=== PATIENT | male | born 1965 | race Caucasian/White ===

== ENCOUNTER 2017-01-19 21:55 | Inpatient (IN) | payer MEDICARE ==
--- NOTE | 2017-01-19 22:32 | ED ---
General Adult HPI - General Source: patient, police, RN notes reviewed Mode of arrival: ambulatory Limitations: no limitations <Eben Cervantes - Last Filed: 01/19/17 23:08> <Robinson Weinstein - Last Filed: 03/21/17 07:28> - General Chief complaint: Psychiatric Symptoms Stated complaint: Mental health Time Seen by Provider: 01/19/17 22:00 - History of Present Illness Initial comments: This is a 51-year-old male who presents to the emergency department stating that people are telling him he is not acting right so he decided come to the emergency department to be evaluated. Patient states he has a past medical history significant for depression with psychotic. Patient states he believes the FBI is been after him for the last 15 years and they are talking to him through his TV. Patient states he believes the FBI's telling him to kill himself in the TV because they would rather have him because they believe that he has a serial killer. He states that they think he wanders around the neighborhood looking for people to kill. Patient states he has never kill anybody or harmed anybody and he does not want to harm anybody. Patient denies any suicidal ideations or suicidal plans. Patient states he has had no physical complaints lately. Patient denies any injury or trauma patient denies any headache patient denies numbness weakness. Patient denies any recent fever chills or cough. Patient denies any chest pain or abdominal pain. Patient denies any shortness of breath. Patient states his ex- sounds noted she thought he was acting little different and so that is another reason he came to the emergency department. (Eben Cervantes) - Related Data Home Medications Medication Instructions Recorded Confirmed ALPRAZolam [Xanax] 1 mg PO BID 08/15/16 01/19/17 DULoxetine HCL [Cymbalta] 120 mg PO DAILY 08/15/16 01/19/17 Acetaminophen [Tylenol] 650 mg PO Q4H PRN 01/19/17 01/20/17 Bcieaza-Fpws-Ltci [id number] 1 tab PO Q4HR PRN 01/19/17 01/20/17 [Excedrin] Benztropine Mesylate 0.5 mg PO BID 01/19/17 01/20/17 Propranolol [Inderal] 40 mg PO TID 01/19/17 01/20/17 Testosterone Cypionate 200 mg IM Q14D 01/19/17 01/20/17 [Depo-Testosterone] buPROPion XL [Wellbutrin XL] 450 mg PO DAILY 01/19/17 01/20/17 Previous Rx's Medication Instructions Recorded ARIPiprazole [Abilify] 30 mg PO DAILY #30 tab 01/29/17 Pantoprazole [Protonix] 40 mg PO SACHA #30 tablet. 01/29/17 Allergies Allergy/AdvReac Type Severity Reaction Status Date / Time No Known Allergies Allergy Verified 01/20/17 06:12 Review of Systems ROS Other: All systems not noted in ROS Statement are negative. <Eben Cervantes - Last Filed: 01/19/17 23:08> ROS Other: All systems not noted in ROS Statement are negative. <Robinson Weinstein - Last Filed: 03/21/17 07:28> ROS Statement: Those systems with pertinent positive or pertinent negative responses have been documented in the HPI. Past Medical History Past Medical History: Asthma History of Any Multi-Drug Resistant Organisms: None Reported Past Surgical History: Tonsillectomy Past Anesthesia/Blood Transfusion Reactions: No Reported Reaction Past Psychological History: Depression, Schizophrenia Smoking Status: Former smoker Past Alcohol Use History: None Reported Past Drug Use History: None Reported <Eben Cervantes - Last Filed: 01/19/17 23:08> General Exam Limitations: no limitations <Eben Cervantes - Last Filed: 01/19/17 23:08> <Robinson Weinstein - Last Filed: 03/21/17 07:28> - General Exam Comments Initial Comments: GENERAL: Patient is well-developed and well-nourished. Patient is nontoxic and well- hydrated and is mildly anxious.. ENT: Neck is soft and supple. No significant lymphadenopathy is noted. Oropharynx is clear. Moist mucous membranes. Neck has full range of motion without eliciting any pain. . EYES: The sclera were anicteric and conjunctiva were pink and moist. Extraocular movements were intact and pupils were equal round and reactive to light. Eyelids were unremarkable. PULMONARY: Unlabored respirations. Good breath sounds bilaterally. No audible rales rhonchi or wheezing was noted. CARDIOVASCULAR: There is a regular rate and rhythm without any murmurs gallops or rubs. ABDOMEN: Soft and nontender with normal bowel sounds. No palpable organomegaly was noted. SKIN: Skin is clear with no lesions or rashes and otherwise unremarkable. NEUROLOGIC: Patient is alert and oriented x3. Cranial nerves II through XII are grossly intact. Motor and sensory are also intact. Normal speech, volume and content. Symmetrical smile. MUSCULOSKELETAL: Normal extremities with adequate strength and full range of motion. No lower extremity swelling or edema. No calf tenderness. LYMPHATICS: No significant lymphadenopathy is noted PSYCHIATRIC: Patient is delusional he believes the FBI is after he believes they're talking to him via satellite through his TV set. He states he believes. He wants to kill himself. He also believes the FBI thinks he is a serial killer. (Eben Cervantes) Medical Decision Making <Eben Cervantes - Last Filed: 01/19/17 23:08> - Lab Data Result diagrams: 01/21/17 07:52 01/21/17 07:52 <Robinson Weinstein - Last Filed: 03/21/17 07:28> - Medical Decision Making Dr. Davis will be taking over the care of this patient at 11 PM (Eben Cervantes ) Disposition <Eben Cervantes - Last Filed: 01/19/17 23:08> <Robinson Weinstein - Last Filed: 03/21/17 07:28> Clinical Impression: Major depressive disorder, recurrent, severe with psychotic symptoms Disposition: TRANSFER TO PSYCH HOSP/UNIT Condition: Stable
[2017-01-20] MEDS ORDERED: MAGNESIUM HYDROXIDE 2,400 MG/10 ML CUP PO PRN (01:41)
[2017-01-20] MEDS ORDERED: ZIPRASIDONE 20 MG VIAL IM PRN (01:41)
[2017-01-20 06:31] VITALS: BMI 37.3
[2017-01-20] MEDS: NICOTINE 14MG/24HR PATCH TRANSDERM SCH (08:59)
[2017-01-20] MEDS: LORazepam 1 MG TAB PO PRN ×2 (09:00→17:03)
[2017-01-20] MEDS: ACETAMINOPHEN TAB 325 MG TAB PO PRN ×3 (09:01→21:27)
[2017-01-20] MEDS ORDERED: WATER FOR INJECTION, STERILE 10 ML IV ONE (11:48)
--- NOTE | 2017-01-20 18:24 | CONS ---
DATE OF CONSULTATION: REASON FOR CONSULTATION: Medical history and physical. HISTORY OF PRESENT ILLNESS: This is a 51-year-old gentleman with history of schizophrenia, ADHD, depression was brought into the hospital by the police as patient was noted to have some auditory hallucinations. Patient states that he would rather not get into what his voices were telling him. There is some concern for suicidal ideation. The patient apparently has a long history of this as well. The patient denies having any headaches, blurry vision, nausea, vomiting, diarrhea, chest pain, difficulty in breathing. Patient's only complaint is tenderness in his left molar region. No drainage is reported. Past medical history includes schizophrenia, depression, ADHD, asthma. Past surgical history includes tonsillectomy. SOCIAL HISTORY: Former smoker. Denies alcohol or illicit drug use. Today medications were reviewed for the ( ) history and physical examination. ALLERGIES: No known drug allergies. SOCIAL HISTORY: As described above. FAMILY HISTORY: Not pertinent in current admission. PHYSICAL EXAM: Temperature 96.4, heart rate 83, respiratory rate 18, blood pressure 125/77, saturating 95% on room air. GENERALLY: Patient appears to be alert, oriented x3. HEENT: The pupils are equal and reactive to light and accommodation. Oral cavity poor dentition, very tender to palpation around left mandibular region. HEART: S1, S2 present. No murmur appreciated. LUNGS: Good air entry. No wheezing or rhonchi noted. ABDOMINAL EXAM: Soft, nontender, no organomegaly appreciated. GENITOURINARY: No Smith in place. EXTREMITIES: Pulses can be palpated distally. Denies any tenderness on gross palpation. SKIN: On a gross skin exam does not appear to have any purpura or any skin rashes that were noted. PSYCHIATRIC: Patient does not make eye contact. States he continues to hear voices. NEURO EXAM: No focal motor or sensory deficit noted. Cranial nerves 2 through 12 grossly intact. No dysdiadochokinesia appreciated. ASSESSMENT AND PLAN: 1. Schizophrenia with auditory hallucination. 2. History of tobacco use. 3. Periodontal disease. 4. Attention deficit hyperactivity disorder. 5. Depression. 6. Essential tremor. 7. Chronic headaches. PLAN: Patient examination was within normal limits except for some concern for periodontal disease. Will empirically place the patient on amoxicillin 500 mg p.o. b.i.d. for a total of 7 days. Patient can thereafter follow up with a dentist on discharge from the psychiatric unit. No further work up is recommended. Treatment per you. Thank you for the consultation.
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
[2017-01-20] MEDS: MAG HYDROX/AL HYDROX/SIMETH 30 ML CUP PO PRN (21:27)
[2017-01-20] MEDS: AMOXICILLIN 500 MG CAP PO SCH (21:27)
[2017-01-20] MEDS: ALPRAZolam 0.5 MG TAB PO SCH (21:27)
[2017-01-20] MEDS: BENZTROPINE MESYLATE 0.5 MG TAB PO SCH (23:53)
[2017-01-20] MEDS: PROPRANOLOL 40 MG TAB PO SCH (23:53)
[2017-01-21 08:35] LABS: Basophils # (A) 0.1 k/uL (0-0.2); Basophils % (A) 1 %; CH 30.2; CHCM 32.3; Eosinophils # (A) 0.6 k/uL (0-0.7); Eosinophils % (A) 8 %; HDW 2.41; HGB 15.4 gm/dL (13.0-17.5); Luc # (Auto) 0.26; Luc % (Auto) 3; Lymphocytes # (A) 1.4 k/uL (1.0-4.8); Lymphocytes % (A) 19 %; MCH 29.6 pg (25.0-35.0); MCHC 31.5 g/dL (31.0-37.0); MCV 93.8 fL (80.0-100.0); Mean Platelet Volume 6.7; Monocytes # (A) 0.6 k/uL (0-1.0); Monocytes % (A) 7 %; Neutrophils # (A) 4.7 k/uL (1.3-7.7); Neutrophils % (A) 61 %; RBC 5.22 m/uL (4.30-5.90); RDW 13.5 % (11.5-15.5); WBC 7.7 k/uL (3.8-10.6)
[2017-01-21 08:55] LABS: ALT 59 U/L (21-72); AST 73 U/L (17-59); Alkaline Phosphatase 49 U/L (38-126); Anion Gap 12 mmol/L; Blood Urea Nitrogen 13 mg/dL (9-20); Calcium 9.4 mg/dL (8.4-10.2); Carbon Dioxide 27 mmol/L (22-30); Chloride 102 mmol/L (98-107); Glucose 99 mg/dL (74-99); Non-African American GFR(MDRD) >60 (>60 ml/min/1.73 sqM); Potassium 4.5 mmol/L (3.5-5.1); Sodium 141 mmol/L (137-145); Total Bilirubin 0.8 mg/dL (0.2-1.3); Total Protein 7.4 g/dL (6.3-8.2)
[2017-01-21] MEDS: PROPRANOLOL 40 MG TAB PO SCH ×3 (09:36→20:04)
[2017-01-21] MEDS: buPROPion XL 150 MG TAB.ER.24H PO SCH (09:37)
[2017-01-21] MEDS: ALPRAZolam 0.5 MG TAB PO SCH ×2 (09:38→20:01)
[2017-01-21] MEDS: DULoxetine HCL 60 MG CAPSULE.DR PO SCH (09:38)
[2017-01-21] MEDS: AMOXICILLIN 500 MG CAP PO SCH ×2 (09:38→19:53)
[2017-01-21] MEDS: ACETAMINOPHEN TAB 325 MG TAB PO PRN ×3 (09:39→19:56)
[2017-01-21] MEDS: BENZTROPINE MESYLATE 0.5 MG TAB PO SCH ×2 (09:39→19:59)
[2017-01-21] MEDS: NICOTINE 14MG/24HR PATCH TRANSDERM SCH (09:40)
--- NOTE | 2017-01-21 16:44 | P.PN ---
Progress Note - Text Interval history: Patient is seen in cross coverage today for Dr. Penny. He reports that he feels very tired and has been sleeping most of the day. He does describe feeling more depressed today. He relates that he feels like people on the unit are watching him. He does not really any adverse psychotropic medication side effects. He seems to be tolerating the increase in Abilify well. Mental status exam: He is alert and cooperative with the interview. His speech is fluent, not rapid or pressured. Thought processes are organized. He describes proceeded toward thought content that people on the unit are watching him. He denies any thoughts of harm to self or others. She does not verbalize any current auditory hallucinations. He does not show any agitation. Plan: Patient will be maintained on current psychotropic medication regimen. We 'll monitor for psychosis symptoms as well as his mood. He relates that he is typically on Prilosec, ordered Protonix as substitution. Dr. Penny or colleague will initiate care this patient starting tomorrow.
[2017-01-21] MEDS: MAG HYDROX/AL HYDROX/SIMETH 30 ML CUP PO PRN (19:57)
[2017-01-22] MEDS: ALPRAZolam 0.5 MG TAB PO SCH ×2 (08:54→20:12)
[2017-01-22] MEDS: AMOXICILLIN 500 MG CAP PO SCH ×2 (08:54→20:12)
[2017-01-22] MEDS: PANTOPRAZOLE 40 MG TABLET PO SCH (08:54)
[2017-01-22] MEDS: BENZTROPINE MESYLATE 0.5 MG TAB PO SCH ×2 (08:56→20:12)
[2017-01-22] MEDS: ACETAMINOPHEN TAB 325 MG TAB PO PRN ×3 (08:56→20:11)
[2017-01-22] MEDS: buPROPion XL 150 MG TAB.ER.24H PO SCH (08:56)
[2017-01-22] MEDS: PROPRANOLOL 40 MG TAB PO SCH ×3 (08:56→20:12)
[2017-01-22] MEDS: DULoxetine HCL 60 MG CAPSULE.DR PO SCH (08:58)
[2017-01-22] MEDS: ARIPiprazole 15 MG TAB PO SCH (10:56)
[2017-01-22] MEDS: ARIPiprazole 10 MG TAB PO SCH (10:57)
--- NOTE | 2017-01-22 20:35 | PN ---
DATE OF SERVICE: 01/22/2017 CHIEF COMPLAINT: Patient was admitted due to increasing problems with paranoia, believing there are conspiracies against him, that the FBI is monitoring him and talking to him through satellites, and that there are other nefarious happenings around him that threaten him. INTERVAL HISTORY: The patient is seen in cross-coverage today for Dr. Penny. He reports that he has been doing fair. Yesterday he reported that he was feeling tired and slept much of the day. He described a little more depression. He believed that people were watching him. Today he says that overall he feels that his medications have helped stabilize his depression. He has been having some problems which he attributes to Abilify. He said Dr. Penny just started Abilify 3 or 4 weeks ago. He believes the initial dose was 20 mg. He had some tremors with that. Dr. Penny then started Cogentin and had a plan to reduce Abilify to 15 mg. The patient says he never picked up the 15 mg tablets because he ended up coming to the hospital. It is noted on admission that he has been increased to 25 mg on Abilify. His other psychotropic medications were continued the same. He says that prior to coming into the hospital he has been taking his medications consistently; in fact, he describes his medications as "lifesavers." He does not identify precipitants to the difficulties that brought him to the hospital. He says that he felt he got initial response to Abilify and then in the last week or two things seemed to slip for him. He last saw Dr. Penny about 2 weeks ago. Today he says he continues to feel tired. He naps some in the day. He has not attended any groups today. He tends to stay in his room. He says he sleeps some. He has a good appetite. He is quite insistent that his beliefs about the FBI and many other similar things are reality, though he says it is unfortunate no one will believe him. On the other hand, when I asked him questions about thought disorder in other ways, he was able to say that he can acknowledge some of his thoughts are not in touch with reality. He seemed to go back and forth between the two ideas. He has not had change in his general health. He tolerates his psychotropic medications. MENTAL STATUS: Patient was dressed in a hospital gown. He had good eye contact. Psychomotor activity was slow. Speech was monotone. He answered questions with brief responses. His thoughts were clear. He did not say a lot. He was not spontaneous or interactive. His affect was flat, his mood quiet. He did smile a little. He was calm. He had an overall pleasant manner. He continued to exhibit paranoid thinking. He seemed somewhat distressed. ASSESSMENT: I will continue the current diagnosis and treatment plan. I will continue psychotropic medications the same. He has had some apparent EPS relating to Abilify. He is on maximum doses of his 2 antidepressants, namely Cymbalta and Wellbutrin. There is the possibility of titrating up on his Abilify, or there may need to be consideration for changing to an alternative antipsychotic. We will continue to focus on stabilization and discharge planning. SPENSER
[2017-01-23] MEDS: DULoxetine HCL 60 MG CAPSULE.DR PO SCH (08:26)
[2017-01-23] MEDS: ARIPiprazole 10 MG TAB PO SCH (08:26)
[2017-01-23] MEDS: PANTOPRAZOLE 40 MG TABLET PO SCH (08:26)
[2017-01-23] MEDS: ALPRAZolam 0.5 MG TAB PO SCH ×2 (08:26→20:49)
[2017-01-23] MEDS: ARIPiprazole 15 MG TAB PO SCH (08:26)
[2017-01-23] MEDS: AMOXICILLIN 500 MG CAP PO SCH ×2 (08:27→20:49)
[2017-01-23] MEDS: BENZTROPINE MESYLATE 0.5 MG TAB PO SCH ×2 (08:28→20:49)
[2017-01-23] MEDS: buPROPion XL 150 MG TAB.ER.24H PO SCH (08:28)
[2017-01-23] MEDS: PROPRANOLOL 40 MG TAB PO SCH ×3 (08:29→20:49)
[2017-01-23] MEDS: ACETAMINOPHEN TAB 325 MG TAB PO PRN ×3 (08:30→20:49)
--- NOTE | 2017-01-23 10:06 | P.PN ---
Progress Note - Text Interval history: The patient is found in his room he follows me to an interview room. He was admitted over the weekend for acute symptoms of psychosis. His ex- had filled out a petition with the court to have him picked up. She had presented to the office Sunday afternoon concern of the patient was overusing Adderall. It appeared that there were 6 tablets missing from the prescription where there should have only been 2 missing. The patient does have a long history of major depressive disorder recurrent with symptoms of psychosis at times. He is well known to my outpatient practice. He was recently seen describing some presumed extrapyramidal symptoms with Abilify the dosage was reduced and we initiated Cogentin. He is on several other psychotropic medications. 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 He states there is no specific person named and he is not sure even when this person could have . He was shocked to learn that there were no warrants for his arrest. He states he's not paranoid and this is all real. He feels they are monitoring him with satellites. Mental status exam: The patient is an overweight male he seated calmly he's mildly agitated. He states he doesn't feel depressed but does feel hopeless at times. He states he's not psychotic these things "are real". He continues to explain paranoid and persecutory thinking. He is reporting no suicidal or homicidal ideation intent or plan. He does not appear hypomanic or manic. He is dressed in 2 hospital gowns. Hygiene grooming impaired. He demonstrates no verbal or physical aggressiveness. There is no evidence of any abnormal involuntary movements. Insight and judgment are limited. Plan: The patient will continue on the Abilify we will titrate to 30 mg daily. He will continue on his other psychotropic medications except Adderall. We will monitor him for safety he is encouraged to participate in the milieu. He requires continued psychiatric hospitalization for symptoms of psychosis. Vital signs reviewed.
[2017-01-23] MEDS ORDERED: ARIPiprazole 5 MG TAB PO ONE (10:15)
[2017-01-24] MEDS: ARIPiprazole 15 MG TAB PO SCH (08:39)
[2017-01-24] MEDS: AMOXICILLIN 500 MG CAP PO SCH ×2 (08:39→20:45)
[2017-01-24] MEDS: DULoxetine HCL 60 MG CAPSULE.DR PO SCH (08:39)
[2017-01-24] MEDS: BENZTROPINE MESYLATE 0.5 MG TAB PO SCH ×2 (08:39→20:45)
[2017-01-24] MEDS: ALPRAZolam 0.5 MG TAB PO SCH ×2 (08:39→20:46)
[2017-01-24] MEDS: buPROPion XL 150 MG TAB.ER.24H PO SCH (08:39)
[2017-01-24] MEDS: PROPRANOLOL 40 MG TAB PO SCH ×3 (08:40→21:03)
[2017-01-24] MEDS: PANTOPRAZOLE 40 MG TABLET PO SCH (08:40)
[2017-01-24] MEDS: ACETAMINOPHEN TAB 325 MG TAB PO PRN ×3 (08:42→18:53)
--- NOTE | 2017-01-24 09:55 | P.PN ---
Progress Note - Text Interval history: The patient is found in his room he follows me to an interview room. He continues to isolate in his room. He reports his goal is to shower today and make it to one half of the groups. He states he wishes he could convince us that the authorities are investigating him they're using satellites to project a voice into his home and they are getting more "aggressive". He states they think he killed somebody but he doesn't know who or when. He states "this is real and you are programed to think it is not real ". Appetite stable. He does report feeling confused at times. Mental status exam: The patient is an overweight male he is dressed in hospital gowns. Hygiene and grooming are impaired. Speech is fluent spontaneous nonpressured. He maintains a blunted affect. Eye contact is staring in nature. He reports he doesn't feel depressed but he feels confused. He continues to describe paranoid and persecutory thoughts. At one point he states he has no suicidal thoughts but at another he states he was using Excedrin excessively hoping to kill his liver. He reports no homicidal ideation. He does seem to struggle with short-term memory as he continues to ask the same questions during the session. Insight and judgment are impaired. He is demonstrating no abnormal involuntary movements. Plan: We will continue him on his current medications we increased the Abilify to 30 mg yesterday. We discuss alternatives to Abilify. He states he refuses to use Seroquel or Zyprexa. He was recently on Risperdal 4 mg a day and we change the medicine because of lack of efficacy although he had been on that for an extended period of time. He is encouraged to attend groups, shower. We will continue to monitor him for safety. He remains in acute safety risk at least unintentionally because of his psychosis.
[2017-01-25] MEDS: buPROPion XL 150 MG TAB.ER.24H PO SCH (08:25)
[2017-01-25] MEDS: AMOXICILLIN 500 MG CAP PO SCH ×2 (08:25→21:23)
[2017-01-25] MEDS: ARIPiprazole 15 MG TAB PO SCH (08:26)
[2017-01-25] MEDS: DULoxetine HCL 60 MG CAPSULE.DR PO SCH (08:26)
[2017-01-25] MEDS: PROPRANOLOL 40 MG TAB PO SCH ×3 (08:26→21:23)
[2017-01-25] MEDS: ALPRAZolam 0.5 MG TAB PO SCH ×2 (08:26→22:05)
[2017-01-25] MEDS: PANTOPRAZOLE 40 MG TABLET PO SCH (08:26)
[2017-01-25] MEDS: BENZTROPINE MESYLATE 0.5 MG TAB PO SCH ×2 (08:29→21:24)
[2017-01-25] MEDS: ACETAMINOPHEN TAB 325 MG TAB PO PRN ×3 (09:12→21:27)
--- NOTE | 2017-01-25 10:04 | P.PN ---
Progress Note - Text Interval history: The patient is found in his room he follows me to an interview room. He reports he was able to sleep last night he did eat breakfast this morning. He feels the Abilify increase is helping. He does not feel depressed. 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 He reports attending some groups but often is uncomfortable around others. He is known to my outpatient practice. We discussed the need for him to engage in some activities outside of his home such as going to the grocery store and cultivating more support other than his ex-. We reviewed the signs of dysfunction he was demonstrating and how to develop some coping skills to deal with those. He discussed some assumptions that he was making regarding his ex- and provided some more objective alternative thoughts. Mental status exam: The patient is an overweight alert male he stressors in his own clothing. Hygiene is adequate. Eye contact is staring in nature. He seems more focused on the conversation today and less confused versus the prior 2 days. He does continue to harbor a delusional thought content which is paranoid in nature. He does not identify his mood as being depressed but is frustrated that he is here and was petitioned. He reports no suicidal or homicidal thoughts. He specifically states he has no thoughts of harming his ex-. He demonstrates no verbal or physical aggressiveness. Affect is mainly blunted there are some brief moments where he demonstrate some range with brief smiling. He demonstrates no abnormal involuntary movements. Insight and judgment limited. Plan: The patient's will continue on his current psychotropic medication. We will continue to monitor his progress in terms of the reduction of acute psychosis. He has been kept off of the Adderall and we discussed we will likely not restart that medication. We discussed Strattera or Intuniv as alternatives. The patient requires continued psychiatric hospitalization for his symptoms of psychosis. He nubia most likely be appropriate for discharge early next week.
[2017-01-26] MEDS: PANTOPRAZOLE 40 MG TABLET PO SCH (08:39)
[2017-01-26] MEDS: ALPRAZolam 0.5 MG TAB PO SCH ×2 (08:39→20:54)
[2017-01-26] MEDS: BENZTROPINE MESYLATE 0.5 MG TAB PO SCH ×2 (08:39→20:54)
[2017-01-26] MEDS: buPROPion XL 150 MG TAB.ER.24H PO SCH (08:39)
[2017-01-26] MEDS: AMOXICILLIN 500 MG CAP PO SCH ×2 (08:39→20:54)
[2017-01-26] MEDS: ARIPiprazole 15 MG TAB PO SCH (08:39)
[2017-01-26] MEDS: PROPRANOLOL 40 MG TAB PO SCH ×3 (08:40→20:54)
[2017-01-26] MEDS: DULoxetine HCL 60 MG CAPSULE.DR PO SCH (08:40)
[2017-01-26] MEDS: ACETAMINOPHEN TAB 325 MG TAB PO PRN ×3 (08:41→20:54)
--- NOTE | 2017-01-26 10:19 | P.PN ---
Progress Note - Text Interval history: The patient is found in his room he follows me to an interview room. He reports that his mood is improving. He continues to have paranoid thinking but finds that he isn't focused on it as much compared to 2 days ago. Sleep is stable appetite stable. He finds he has a lack of energy. He did receive a phone call from his ex- Latanya and found that supportive. We discussed his current medications his questions were answered. Staff reported that he showered and participated in some groups. Mental status exam: The patient is an overweight male he seated calmly eye contact is appropriate speech is fluent spontaneous nonpressured. He is demonstrating more affect of range appropriately. He is reporting no acute suicidal or homicidal ideation. He does continue to have a delusional thought content but he feels the severity of those thoughts is decreasing. He is reporting no auditory or visual hallucinations currently. He demonstrates no verbal or physical aggressiveness he demonstrates no abnormal involuntary movements. Insight and judgment limited. He is oriented to person place and date. Thought process is linear he demonstrates no flight of ideas loose associations or tangential thinking. Plan: The patient's will continue on his current psychotropic medications it appears that he is stabilizing psychosis is still present but improving. If he continues to improve we will consider a discharge Sunday or Sunday. Vital signs reviewed. We will continue to monitor him for safety.
[2017-01-27] MEDS: PANTOPRAZOLE 40 MG TABLET PO SCH (08:36)
[2017-01-27] MEDS: ARIPiprazole 15 MG TAB PO SCH (08:36)
[2017-01-27] MEDS: AMOXICILLIN 500 MG CAP PO SCH ×2 (08:36→20:20)
[2017-01-27] MEDS: ALPRAZolam 0.5 MG TAB PO SCH ×2 (08:36→20:19)
[2017-01-27] MEDS: buPROPion XL 150 MG TAB.ER.24H PO SCH (08:37)
[2017-01-27] MEDS: DULoxetine HCL 60 MG CAPSULE.DR PO SCH (08:37)
[2017-01-27] MEDS: BENZTROPINE MESYLATE 0.5 MG TAB PO SCH ×2 (08:37→20:20)
[2017-01-27] MEDS: PROPRANOLOL 40 MG TAB PO SCH ×3 (08:38→20:20)
[2017-01-27] MEDS: ACETAMINOPHEN TAB 325 MG TAB PO PRN ×2 (08:38→16:22)
[2017-01-28] MEDS: ARIPiprazole 15 MG TAB PO SCH (09:33)
[2017-01-28] MEDS: PANTOPRAZOLE 40 MG TABLET PO SCH (09:33)
[2017-01-28] MEDS: DULoxetine HCL 60 MG CAPSULE.DR PO SCH (09:33)
[2017-01-28] MEDS: PROPRANOLOL 40 MG TAB PO SCH ×3 (09:34→20:56)
[2017-01-28] MEDS: BENZTROPINE MESYLATE 0.5 MG TAB PO SCH ×2 (09:34→20:37)
[2017-01-28] MEDS: buPROPion XL 150 MG TAB.ER.24H PO SCH (09:34)
[2017-01-28] MEDS: ALPRAZolam 0.5 MG TAB PO SCH ×2 (09:35→20:36)
[2017-01-28] MEDS: ACETAMINOPHEN TAB 325 MG TAB PO PRN ×2 (09:38→20:38)
--- NOTE | 2017-01-28 11:17 | PN ---
DATE OF SERVICE: 01/27/2017 CHIEF COMPLAINT: The patient was admitted due to increasing problems with paranoia believing there are conspiracies against him, that [facility] is monitoring him and talking to him through satellites and that there were other affairs happenings around him that threatened him. INTERVAL HISTORY: Patient has been doing fair. He seems to be making progress. Overall his thought process seems to be more connected to reality. He is stating that his mood is improved. He had a positive for a family meeting today. He attended group today and generally was appropriate. He has not always been attending groups. He slept well last night. He has not had change in his general health. He tolerates his psychotropic medications. MENTAL STATUS: Patient gave good eye contact. Psychomotor activity was slowed. Speech was monotone. He answered questions with brief responses. His thoughts were clear. His affect was somewhat limited. His mood was even. He did not appear to be distressed. He did not show outward evidence of paranoia or thought disorder. ASSESSMENT: I will continue the current diagnosis and treatment plan. We will continue to make efforts to engage the patient in individual and group therapeutic activities. I will continue psychotropic medications the same, including Wellbutrin 450 mg a day, Cymbalta 120 mg a day and Xanax 1 mg twice a day, Abilify 30 mg a day and Cogentin 0.5 mg twice a day. We will continue to focus on stabilization and discharge planning. The patient is hopeful to be discharged early in the week.
[2017-01-28 18:22] LABS: Appearance,Urine Clear (Clear); Bilirubin,Urine Negative (Negative); Glucose,Urine (UA) Negative (Negative); Ketones,Urine Negative (Negative); Leukocyte Esterase,Urine Negative (Negative); Nitrite,Urine Negative (Negative); PH, Urine 5.5 (5.0-8.0); Protein,Urine Negative (Negative); Specific Gravity,Urine 1.003 (1.001-1.035); UA Billing (MACRO vs. MICRO) CHEM; Urobilinogen,Urine <2.0 mg/dL (<2.0)
--- NOTE | 2017-01-28 18:22 | PN ---
DATE OF SERVICE: 01/28/2017 CHIEF COMPLAINT: The patient was admitted due to increasing problems with paranoia. INTERVAL HISTORY: Patient has been doing fairly well. He had a quiet evening last night. He slept fairly well today. He has been up and about. He does not attend group much. When he does, he does not joint in though he is more of a passive observer. He seems to be fairly comfortable in the milieu. He says that his mood is improving. He shows a little more emotional response and seems less withdrawn. He is hopeful to be discharged soon. He has not had change in his general health. He tolerates his psychotropic medications. MENTAL STATUS: Patient was in his room. He gave good eye contact. Psychomotor activity was a little slowed. Speech was clear. He answered with brief responses. His affect was a little constricted. He did smile some. He appeared relaxed. His mood was even. He did not appear to be distressed. ASSESSMENT: I will continue the current diagnosis and treatment plan. We will continue psychotropic medications the same. Patient has been making progress. We will coordinate with outpatient resources for discharge planning.
[2017-01-29 06:09] VITALS: BP 105/56; PULSE 66; RESP 18; TEMP 98
--- NOTE | 2017-01-29 08:57 | P.DS ---
Providers Date of admission: 01/20/17 00:19 Expected date of discharge: 01/29/17 Attending physician: David Penny Consults: 01/20/17 01:41 Consult Physician Routine Consulting Provider: Yong Siddiqui Consult Reason/Comments: medical management Do you want consulting provider notified?: Yes, Notify in am Primary care physician: Rufino Haddad Moody - Discharge Diagnosis(es) (1) Major depressive disorder, recurrent, severe with psychotic features Current Visit: Yes Status: Acute Priority: High (2) Generalized anxiety disorder Current Visit: Yes Status: Acute Priority: High (3) ADHD (attention deficit hyperactivity disorder) Current Visit: Yes Status: Acute Priority: Medium Hospital Course: Brief summary of admission note: This patient was admitted to the mental health unit through the emergency room as he was brought in on a pickup order. His ex- had presented to my office the Sunday before his admission stating she was concerned about symptoms of psychosis the patient was experiencing and she felt he was overusing his Adderall. She was advised to petition the court for a pickup order. The patient presented describing concerns of legal authorities monitoring him and speaking to him through satellites regarding a murder he did not commit. 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 The patient is well known to my outpatient practice. He has a long history of severe psychiatric symptoms. For full details please refer to Dr. Webster's psychiatric evaluation dated 01/20/2017. Summary of hospital course: The patient presented to the hospital on a pickup order but he was willing to sign in voluntarily. We reviewed medication options and decided to titrate the Abilify to 30 mg daily to treat symptoms of psychosis. The patient does have a mild undercurrent of psychosis as part of his baseline as he is typically suspicious and we believe this was exacerbated by overuse of Adderall. Over the course of the hospitalization he was cooperative he attended some groups he demonstrated no agitated behavior. He was evaluated by the electronic component processor for routine medical consultation. We discussed that we would no longer continue Adderall but would look for some options utilizing a non-stimulant medication for ADHD in the outpatient setting. The patient did speak with his ex- via phone and she was also involved in a family meeting over this past weekend. Social work notes regarding the meeting were reviewed and it was perceived to have gone well. The patient states he does feel better he is endorsing no suicidal or homicidal thoughts. He reports that he is able to better manage his suspicious thinking. He is willing to continue working with myself and Sarita in the outpatient setting. We discussed further development of coping skills and establishing more independence. We spent a significant amount of time discussing his fast food diet and how he needs to go to a grocery store to prepare some of his own food. Mental status exam: The patient is an overweight male he seated calmly eye contact is appropriate. Speech is fluent spontaneous nonpressured. He reports his mood is "better". Affect is euthymic he is able to demonstrate appropriate use of humor and smiling. He demonstrates no tearfulness he demonstrates no verbal or physical aggressiveness. He is reporting no suicidal or homicidal ideation intent or plan. He is reporting no auditory or visual hallucinations at this time. He does continue to be suspicious that law authorities could be after him but he states he is much more able to push away those thoughts and not focus on them all day. Thought process is linear he demonstrates no flight of ideas loose associations or tangential thinking. No abnormal involuntary movements observed. He remains oriented to person place and date. Insight and judgment have improved. He does not appear hypomanic or manic. Impressions 1. Major depressive disorder recurrent severe with psychosis, rule out schizoaffective disorder, recent overuse of stimulant medication, generalized anxiety disorder, ADHD symptoms 2. Chronic psychiatric symptoms causing psychosocial dysfunction Plan: The patient will be discharged from the mental health unit today to return home. He will follow-up at my office for individual therapy with Sarita and psychiatric medication management. He will continue on Abilify 30 mg daily , Wellbutrin XL 450 mg daily, Cymbalta 120 mg daily, Cogentin 0.5 mg twice daily , Inderal 40 mg 3 times daily, Xanax 1 mg twice daily. The patient's symptoms of psychosis have significantly reduced. He is endorsing no thoughts of harming himself or others he is capable of participating in his own activities of daily living. There is no imminent safety risk he is appropriate for discharge back to outpatient care. He is instructed to return to the hospital with any acute safety concerns. Patient Condition at Discharge: Stable Plan - Discharge Summary New Discharge Prescriptions: ARIPiprazole [Abilify] 30 mg PO DAILY #30 tab Pantoprazole [Protonix] 40 mg PO AC-BRKFST #30 tablet.dr Discharge Medication List ALPRAZolam [Xanax] 1 mg PO BID 08/15/16 [History] DULoxetine HCL [Cymbalta] 120 mg PO DAILY 08/15/16 [History] Acetaminophen [Tylenol] 650 mg PO Q4H PRN 01/19/17 [History] [id number] [Excedrin] 1 tab PO Q4HR PRN 01/19/17 [History] Benztropine Mesylate 0.5 mg PO BID 01/19/17 [History] Propranolol [Inderal] 40 mg PO TID 01/19/17 [History] Testosterone Cypionate [Depo-Testosterone] 200 mg IM Q14D 01/19/17 [History] buPROPion XL [Wellbutrin XL] 450 mg PO DAILY 01/19/17 [History] ARIPiprazole [Abilify] 30 mg PO DAILY #30 tab 01/29/17 [Rx] Pantoprazole [Protonix] 40 mg PO AC-BRKFST #30 tablet. 01/29/17 [Rx] Follow up Appointment(s)/Referral(s): Rufino Uriostegui MD [Primary Care Provider] - 1 Week
[2017-01-29] MEDS: BENZTROPINE MESYLATE 0.5 MG TAB PO SCH (09:16)
[2017-01-29] MEDS: ALPRAZolam 0.5 MG TAB PO SCH (09:16)
[2017-01-29] MEDS: PANTOPRAZOLE 40 MG TABLET PO SCH (09:16)
[2017-01-29] MEDS: buPROPion XL 150 MG TAB.ER.24H PO SCH (09:16)
[2017-01-29] MEDS: ARIPiprazole 15 MG TAB PO SCH (09:16)
[2017-01-29] MEDS: DULoxetine HCL 60 MG CAPSULE.DR PO SCH (09:16)
[2017-01-29] MEDS: PROPRANOLOL 40 MG TAB PO SCH (09:16)
[2017-01-29] MEDS: ACETAMINOPHEN TAB 325 MG TAB PO PRN (09:17)
== END 2017-01-29 12:10 | disposition home or self-care (01) | DRG 885 ==
LOC: EC 21:55 → 3MHU 01-20 00:19
PROVIDERS: ADMIT Psychiatry & Neurology Psychiatry; ATTEND Psychiatry & Neurology Psychiatry
DX: F33.3 Major depressive disorder, recurrent, severe with psychotic symptoms (principal); E66.3 Overweight; F41.1 Generalized anxiety disorder; F90.9 Attention-deficit hyperactivity disorder, unspecified type; G25.0 Essential tremor; J45.909 Unspecified asthma, uncomplicated; K05.6 Periodontal disease, unspecified; Z79.899 Other long term (current) drug therapy; Z81.8 Family history of other mental and behavioral disorders; Z87.891 Personal history of nicotine dependence
CPT/HCPCS: 80053; 80306; 81003; 82075; 84443; 85025; 99285

== ENCOUNTER → 2017-11-29 | Outpatient (CLI) | payer MEDICARE ==
--- NOTE | 2017-11-29 12:37 | ECHOF ---
Referral Reason:R03.0 Elevated blood pressure reading without.... MEASUREMENTS -------- HEIGHT: 172.7 cm WEIGHT: 136.1 kg BP: RVIDd: 3.0 cm (< 3.3) IVSd: 1.3 cm (0.6 - 1.1) LVIDd: 4.6 cm (3.9 - 5.3) LVPWd: 1.0 cm (0.6 - 1.1) IVSs: 1.6 cm LVIDs: 3.5 cm LVPWs: 1.3 cm LA Diam: 2.8 cm (2.7 - 3.8) Ao Diam: 3.5 cm (2.0 - 3.7) AV Cusp: 2.2 cm (1.5 - 2.6) LA Diam: 3.5 cm (2.7 - 3.8) MV EXCURSION: 17.007 mm (> 18.000) MV EF SLOPE: 169 mm/s (70 - 150) EPSS: 0.2 cm MV E Tony: 0.69 m/s MV DecT: 258 ms MV A Tony: 0.76 m/s MV E/A Ratio: 0.90 RAP: 5.00 mmHg RVSP: 11.42 mmHg FINDINGS -------- Sinus rhythm. Morbid Obesity The left ventricular size is normal. There is mild concentric left ventricular hypertrophy. Overa ll left ventricular systolic function is normal with, an EF between 55 - 60 %. The right ventricle is normal in size. The left atrial size is normal. The right atrial size is normal. The aortic valve is trileaflet, and appears structurally normal. No aortic stenosis or regurgitation. Mild mitral regurgitation is present. Mild tricuspid regurgitation present. There is no evidence of pulmonary hypertension. The right v entricular systolic pressure, as measured by Doppler, is 11.42mmHg. There is no pulmonic regurgitation present. The aortic root size is normal. There is no pericardial effusion. CONCLUSIONS -------- 1. Morbid Obesity 2. The left ventricular size is normal. 3. There is mild concentric left ventricular hypertrophy. 4. Overall left ventricular systolic function is normal with, an EF between 55 - 60 %. 5. The aortic valve is trileaflet, and appears structurally normal. No aortic stenosis or regurgitati on. 6. Mild mitral regurgitation is present. 7. Mild tricuspid regurgitation present. 8. There is no evidence of pulmonary hypertension. 9. The right ventricular systolic pressure, as measured by Doppler, is 11.42mmHg. 10. There is no pulmonic regurgitation present. 11. The aortic root size is normal. 12. There is no pericardial effusion. LINT CLEANER: Kirsty Montalvo RDCS
--- NOTE | 2017-11-29 15:26 | ECHOS ---
STRESS ECHOCARDIOGRAM HEIGHT: 68 WEIGHT: 300 BASELINE HEART RATE: 91 BASELINE BLOOD PRESSURE: 150/98 MAXIMUM HEART RATE: 138 MAXIMUM BLOOD PRESSURE: 206/103 85% MPHR 143 100% MPHR 168 MAX STAGE: II TOTAL TIME: 4:20 METS: 5.6 The patient was exercised for a total period of 4 minutes and 20 seconds. The peak heart rate of 138 was achieved. Maximum blood pressure of 206/100 mmHg was noted. The patient did not complain of any chest pain during the test. Test was terminated because patient got short of breath. The resting EKG shows normal sinus rhythm with normal NE interval and QRS duration and normal ST-T waves. No ST-segment depression suggestive of ischemia is noted. The baseline echocardiographic images reveals normal left ventricular chamber size with normal left ventricular systolic function. In the immediate post exercise period a normal increase in the wall thickness and contractility is noted. FINAL IMPRESSION: 1. This stress echocardiographic study is negative for stress-induced ischemia. 2. The EKG portion of the stress test is not suggestive of ischemia. 3. The patient's exercise tolerance is below average. 4. Patient complained of shortness of breath at the peak exercise. MMODL / IJN: [id number] /
== END | disposition home or self-care (01) ==
LOC: RADECHMAIN 08:01
PROVIDERS: ATTEND Family Medicine
DX: I08.1 Rheumatic disorders of both mitral and tricuspid valves (principal); E66.01 Morbid (severe) obesity due to excess calories; R06.02 Shortness of breath; Z68.42 Body mass index [BMI] 45.0-49.9, adult
CPT/HCPCS: 93017; C8928; C8929; Q9950; 93306; 93350

== ENCOUNTER → 2017-11-30 | Outpatient (CLI) | payer MEDICARE ==
--- NOTE | 2017-11-30 13:29 | CT ---
EXAMINATION TYPE: CT angio chest DATE OF EXAM: 11/30/2017 COMPARISON: Chest x-ray 06/10/2010 HISTORY: Patient complains of difficulty breathing. CT DLP: 458.8 mGycm Automated exposure control for dose reduction was used. CONTRAST: CTA scan of the thorax is performed with IV Contrast, patient injected with 100 mL of Omnipaque 350, pulmonary embolism protocol. MIP images are created and reviewed. 3D reconstructed images are creat ed on an independent workstation and reviewed. FINDINGS: There is extensive artifact on the exam. LUNGS: The lungs are grossly clear, there is no concerning parenchymal mass or nodule identified. T here is no pleural effusion or pneumothorax seen. The tracheobronchial tree is patent. AORTA: No additional significant abnormality is seen. MEDIASTINUM: There is satisfactory enhancement of the pulmonary artery and its branches, however, art ifact limits evaluation of segmental, subsegmental branches to exclude pulmonary embolism. There are no greater than 1 cm hilar or mediastinal lymph nodes. No pericardial effusion is seen. OTHER: No additional significant abnormality is seen. The liver shows low attenuation likely due to hepatic steatosis in the liver is enlarged. IMPRESSION: THE EXAM IS LIMITED TECHNICALLY. NO GROSS PULMONARY EMBOLISM. ADDITIONAL FINDINGS ABOVE.
== END | disposition home or self-care (01) ==
LOC: RADCTMAIN 12:32
PROVIDERS: ATTEND Family Medicine
DX: R06.02 Shortness of breath (principal)
CPT/HCPCS: 71275; Q9967

== ENCOUNTER 2018-02-27 16:30 | Inpatient (IN) | payer MEDICARE ==
[2018-02-27 17:47] LABS: Amphetamine Screen,Urine Not Detected (NotDetected); Barbiturate Screen,Urine Not Detected (NotDetected); Benzodiazepines Screen,Urine Detected (NotDetected); Cocaine Screen,Urine Not Detected (NotDetected); Methadone Screen, Urine Not Detected (NotDetected); Opiate Screen,Urine Not Detected (NotDetected); Oxycodone Screen, Urine Not Detected (NotDetected); Phencyclidine Screen,Urine Not Detected (NotDetected); Tricyclic Antidepressant,Urine Not Detected (NotDetected); Urn Cannabinoid Scrn Not Detected (NotDetected)
--- NOTE | 2018-02-27 17:49 | ED ---
Psych HPI - General Chief Complaint: Psychiatric Symptoms Stated Complaint: Mental Health/Rib Pain Time Seen by Provider: 02/27/18 17:01 Source: patient, RN notes reviewed Mode of arrival: ambulatory Limitations: no limitations - History of Present Illness Initial Comments: This a 53-year-old male presents emergency Department chief complaint of depression, suicidal ideation. Patient states that he is having worsening symptoms as he is going to medication changes. He states she's been weaned off his current medications started new medications. He states that he cannot tolerate a thoughts anymore. Patient states that he feels that isn't a harm himself. Patient has a homicidal ideation. Denies illicit drug use or alcohol abuse. Patient states he also has left rib pain states he slept on it wrong states it hurts severely when he twists or bends or if he presses over the area. Patient states his lateral lower lids. He has no abdominal pain denies any nausea vomiting diarrhea, shortness breath, fever, chills. - Related Data Home Medications Medication Instructions Recorded Confirmed ALPRAZolam [Xanax] 1 mg PO BID 08/15/16 02/27/18 Acetaminophen [Tylenol] 650 mg PO Q4H PRN 01/19/17 02/27/18 Propranolol [Inderal] 40 mg PO TID 01/19/17 02/27/18 buPROPion XL [Wellbutrin XL] 450 mg PO DAILY 01/19/17 02/27/18 DULoxetine HCL [Cymbalta] 30 mg PO DAILY 02/27/18 02/27/18 Previous Rx's Medication Instructions Recorded ARIPiprazole [Abilify] 30 mg PO DAILY #30 tab 01/29/17 Pantoprazole [Protonix] 40 mg PO AC-BRKFST #30 tablet. 01/29/17 Allergies Allergy/AdvReac Type Severity Reaction Status Date / Time No Known Allergies Allergy Verified 02/27/18 18:12 Review of Systems ROS Statement: Those systems with pertinent positive or pertinent negative responses have been documented in the HPI. ROS Other: All systems not noted in ROS Statement are negative. Past Medical History Past Medical History: Asthma History of Any Multi-Drug Resistant Organisms: None Reported Past Surgical History: Tonsillectomy Past Anesthesia/Blood Transfusion Reactions: No Reported Reaction Past Psychological History: Depression Smoking Status: Former smoker Past Alcohol Use History: None Reported Past Drug Use History: None Reported General Exam Limitations: no limitations General appearance: alert, in no apparent distress Head exam: Present: atraumatic, normocephalic, normal inspection Eye exam: Present: normal appearance, PERRL, EOMI. Absent: scleral icterus, conjunctival injection, periorbital swelling Respiratory exam: Present: normal lung sounds bilaterally, chest wall tenderness (Moderate tenderness of the left lateral lower ribs), other (No rash) . Absent: respiratory distress, wheezes, rales, rhonchi, stridor Cardiovascular Exam: Present: regular rate, normal rhythm, normal heart sounds. Absent: systolic murmur, diastolic murmur, rubs, gallop, clicks GI/Abdominal exam: Present: soft, normal bowel sounds. Absent: distended, tenderness, guarding, rebound, rigid Back exam: Absent: CVA tenderness (R), CVA tenderness (L) Skin exam: Present: warm, dry, intact, normal color. Absent: rash Course Vital Signs 02/27/18 16:35 Temperature 97.1 F L Pulse Rate 107 H Respiratory 18 Rate Blood Pressure 131/87 O2 Sat by Pulse 99 Oximetry Medical Decision Making - Lab Data Lab Results 02/27/18 Range/Units 17:26 Urine Opiates Screen Not Detected (NotDetected) Ur Oxycodone Screen Not Detected (NotDetected) Urine Methadone Screen Not Detected (NotDetected) Ur Propoxyphene Screen Not Detected (NotDetected) Ur Barbiturates Screen Not Detected (NotDetected) U Tricyclic Antidepress Not Detected (NotDetected) Ur Phencyclidine Scrn Not Detected (NotDetected) Ur Amphetamines Screen Not Detected (NotDetected) U Methamphetamines Scrn Not Detected (NotDetected) U Benzodiazepines Scrn Detected H (NotDetected) Urine Cocaine Screen Not Detected (NotDetected) U Marijuana (THC) Screen Not Detected (NotDetected) Disposition Clinical Impression: Depression, Suicidal ideation, Rib pain on left side Disposition: ADMITTED IP TO THIS [facility] Condition: Stable Referrals: Rufino Uriostegui MD [Primary Care Provider] - 1-2 days
--- NOTE | 2018-02-27 17:50 | XR ---
EXAMINATION TYPE: XR ribs LT w pa chest xray DATE OF EXAM: 02/27/2018 COMPARISON: NONE HISTORY: Chest pain TECHNIQUE: 5 views FINDINGS: Heart and mediastinum are normal. Lungs are clear. The left ribs appear intact. There is no pleural effusion or pneumothorax. IMPRESSION: Negative left rib exam. Normal chest.
[2018-02-27] MEDS ORDERED: IBUPROFEN 800 MG TAB PO STA (19:18)
[2018-02-27] MEDS ORDERED: MAG HYDROX/AL HYDROX/SIMETH 30 ML CUP PO PRN (20:15)
[2018-02-27] MEDS ORDERED: MAGNESIUM HYDROXIDE 2,400 MG/10 ML CUP PO PRN (20:15)
[2018-02-27] MEDS ORDERED: LORazepam 2 MG/ML INJ IM PRN (20:17)
[2018-02-27] MEDS: LORazepam 1 MG TAB PO PRN (21:21)
[2018-02-27] MEDS: ACETAMINOPHEN TAB 325 MG TAB PO PRN (21:21)
[2018-02-27] MEDS: PROPRANOLOL 40 MG TAB PO SCH (21:21)
[2018-02-28] MEDS: ACETAMINOPHEN TAB 325 MG TAB PO PRN ×4 (03:00→20:46)
[2018-02-28] MEDS: FUROSEMIDE 40 MG TAB PO SCH ×2 (08:39→16:17)
[2018-02-28] MEDS: PANTOPRAZOLE 40 MG TABLET PO SCH (08:39)
[2018-02-28] MEDS: PROPRANOLOL 40 MG TAB PO SCH ×3 (08:40→20:43)
[2018-02-28] MEDS: buPROPion XL 150 MG TAB.ER.24H PO SCH (08:40)
[2018-02-28 08:46] LABS: Basophils # (A) 0.1 k/uL (0-0.2); Basophils % (A) 1 %; Eosinophils # (A) 0.5 k/uL (0-0.7); Eosinophils % (A) 7 %; HCT 41.7 % (39.0-53.0); HGB 13.8 gm/dL (13.0-17.5); Lymphocytes # (A) 1.9 k/uL (1.0-4.8); Lymphocytes % (A) 27 %; MCH 28.3 pg (25.0-35.0); MCV 85.6 fL (80.0-100.0); Mean Platelet Volume 6.2; Monocytes # (A) 0.3 k/uL (0-1.0); Monocytes % (A) 5 %; Neutrophils % (A) 57 %; Platelet Count 319 k/uL (150-450); RBC 4.86 m/uL (4.30-5.90); RDW 13.6 % (11.5-15.5); WBC 6.9 k/uL (3.8-10.6)
[2018-02-28] MEDS ORDERED: DULoxetine HCL 30 MG CAPSULE.DR PO SCH (09:00)
[2018-02-28] MEDS ORDERED: ARIPiprazole 15 MG TAB PO SCH (09:00)
[2018-02-28 09:06] LABS: ALT 53 U/L (21-72); AST 53 U/L (17-59); Alkaline Phosphatase 65 U/L (38-126); Anion Gap 14 mmol/L; Blood Urea Nitrogen 14 mg/dL (9-20); Calcium 9.5 mg/dL (8.4-10.2); Carbon Dioxide 28 mmol/L (22-30); Chloride 103 mmol/L (98-107); Cholesterol 182 mg/dL (<200); Glucose 121 mg/dL (74-99); HDL Cholesterol 43 mg/dL (40-60); LDL Cholesterol,Calculated 100 mg/dL (0-99); Potassium 4.5 mmol/L (3.5-5.1); Sodium 145 mmol/L (137-145); Total Bilirubin 0.4 mg/dL (0.2-1.3); Triglycerides 193 mg/dL (<150)
[2018-02-28] MEDS: VENLAFAXINE HCL ER 37.5 MG CAP PO SCH (10:31)
[2018-02-28] MEDS: IBUPROFEN 800 MG TAB PO PRN ×2 (10:32→20:44)
[2018-02-28] MEDS: LORazepam 1 MG TAB PO PRN ×2 (10:33→20:49)
--- NOTE | 2018-02-28 11:14 | P.HP ---
Psychiatric H&P - . History & Physical: Allergies Allergy/AdvReac Type Severity Reaction Status Date / Time No Known Allergies Allergy Verified 02/27/18 18:12 Vital Signs Temp 97.9 F 02/28/18 06:28 Pulse 87 02/28/18 06:28 Resp 16 02/28/18 06:28 BP 129/99 02/28/18 06:28 Pulse Ox 98 02/27/18 20:26 Intake & Output 02/27/18 02/28/18 02/28/18 18:59 06:59 18:59 Weight 136.078 kg 136.988 kg Laboratory Last Values WBC 6.9 k/uL (3.8-10.6) 02/28/18 08:32 RBC 4.86 m/uL (4.30-5.90) 02/28/18 08:32 Hgb 13.8 gm/dL (13.0-17.5) 02/28/18 08:32 Hct 41.7 % (39.0-53.0) 02/28/18 08:32 MCV 85.6 fL (80.0-100.0) 02/28/18 08:32 MCH 28.3 pg (25.0-35.0) 02/28/18 08:32 MCHC 33.0 g/dL (31.0-37.0) 02/28/18 08:32 RDW 13.6 % (11.5-15.5) 02/28/18 08:32 Plt Count 319 k/uL (150-450) 02/28/18 08:32 Neutrophils % 57 % 02/28/18 08:32 Lymphocytes % 27 % 02/28/18 08:32 Monocytes % 5 % 02/28/18 08:32 Eosinophils % 7 % 02/28/18 08:32 Basophils % 1 % 02/28/18 08:32 Neutrophils # 4.0 k/uL (1.3-7.7) 02/28/18 08:32 Lymphocytes # 1.9 k/uL (1.0-4.8) 02/28/18 08:32 Monocytes # 0.3 k/uL (0-1.0) 02/28/18 08:32 Eosinophils # 0.5 k/uL (0-0.7) 02/28/18 08:32 Basophils # 0.1 k/uL (0-0.2) 02/28/18 08:32 Sodium 145 mmol/L (137-145) 02/28/18 08:32 Potassium 4.5 mmol/L (3.5-5.1) 02/28/18 08:32 Chloride 103 mmol/L (98-107) 02/28/18 08:32 Carbon Dioxide 28 mmol/L (22-30) 02/28/18 08:32 Anion Gap 14 mmol/L 02/28/18 08:32 BUN 14 mg/dL (9-20) 02/28/18 08:32 Creatinine 0.79 mg/dL (0.66-1.25) 02/28/18 08:32 Est GFR (CKD-EPI)AfAm >90 (>60 ml/min/1.73 sqM) 02/28/18 08:32 Est GFR (CKD-EPI)NonAf >90 (>60 ml/min/1.73 sqM) 02/28/18 08:32 Glucose 121 mg/dL (74-99) H 02/28/18 08:32 Calcium 9.5 mg/dL (8.4-10.2) 02/28/18 08:32 Total Bilirubin 0.4 mg/dL (0.2-1.3) 02/28/18 08:32 AST 53 U/L (17-59) 02/28/18 08:32 ALT 53 U/L (21-72) 02/28/18 08:32 Alkaline Phosphatase 65 U/L (38-126) 02/28/18 08:32 Total Protein 7.0 g/dL (6.3-8.2) 02/28/18 08:32 Albumin 4.0 g/dL (3.5-5.0) 02/28/18 08:32 Triglycerides 193 mg/dL (<150) H 02/28/18 08:32 Cholesterol 182 mg/dL (<200) 02/28/18 08:32 LDL Cholesterol, Calc 100 mg/dL (0-99) H 02/28/18 08:32 HDL Cholesterol 43 mg/dL (40-60) 02/28/18 08:32 TSH 3.000 mIU/L (0.465-4.680) 02/28/18 08:32 Urine Opiates Screen Not Detected (NotDetected) 02/27/18 17:26 Ur Oxycodone Screen Not Detected (NotDetected) 02/27/18 17:26 Urine Methadone Screen Not Detected (NotDetected) 02/27/18 17:26 Ur Propoxyphene Screen Not Detected (NotDetected) 02/27/18 17:26 Ur Barbiturates Screen Not Detected (NotDetected) 02/27/18 17:26 U Tricyclic Antidepress Not Detected (NotDetected) 02/27/18 17:26 Ur Phencyclidine Scrn Not Detected (NotDetected) 02/27/18 17:26 Ur Amphetamines Screen Not Detected (NotDetected) 02/27/18 17:26 U Methamphetamines Scrn Not Detected (NotDetected) 02/27/18 17:26 U Benzodiazepines Scrn Detected (NotDetected) H 02/27/18 17:26 Urine Cocaine Screen Not Detected (NotDetected) 02/27/18 17:26 U Marijuana (THC) Screen Not Detected (NotDetected) 02/27/18 17:26 02/28/18 11:06 IDENTIFYING DATA: This patient is a 53-year-old single male who was admitted to the mental health unit through the emergency room for acute suicidal ideation and symptoms of psychosis. HPI: The patient is known to my outpatient practice. He has a long-standing history of major depressive disorder that can become severe and cause psychotic symptoms. He presented to the emergency room reporting he was suicidal. At our last outpatient appointment we began a cross titration off of Cymbalta and onto Effexor XR. He has recently reduce the Cymbalta to 30 mg daily for the last 3 days. He has not yet started the Effexor XR. He described feeling hopeless low energy low motivation and is having thoughts of wanting to . When the patient decompensates he will have a reoccurring concern that he is being monitored by the government and believes he is being investigated for the of a patient under his nursing care numerous years ago. Again he states he has no knowledge of any patient's dying under his nursing care but he still has this paranoid thought. He is convinced that the government is using technology despite on him in his own home. The patient mainly isolates. He continues to engage in a unhealthy diet a fast food. His primary support comes from his ex-. He was visiting her often but she moved further away which makes it more challenging. He is reporting no thoughts of harming others. He is endorsing no hallucinations. He has no firearms at home. PAST PSYCHIATRIC HISTORY: The patient has a history of multiple inpatient admissions. His last was approximately 2 years ago. We are tapering him off of Cymbalta to start Effexor XR. He is on Wellbutrin XL 450 mg daily Xanax 1 mg twice daily Abilify 30 mg at bedtime. He has been tried on numerous medications in the past. He does have a history of suicide attempts in the past. He is working with Sarita Allison for outpatient psychotherapy. PMH: Edema, hypertension, obesity ALLERGIES: NO KNOWN DRUG ALLERGIES MEDICATIONS: Refer to MAR CHEMICAL DEPENDENCY HISTORY: No use of alcohol or marijuana or any other illicit drugs. He does have a history of overusing stimulant medication in the past. He has never been placed in residential treatment for chemical dependency reasons. FAMILY PSYCHIATRIC HISTORY: Both of his daughters are severely autistic, no suicides in the family FAMILY CHEMICAL DEPENDENCY HISTORY: Unknown SOCIAL HISTORY: The patient is 53 years old he is she has 2 daughters. His daughters reside in treatment centers due to their severe autism. He is on a disability income he does not work he lives alone in an efficiency apartment. 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 He typically deals with significant financial constraints. No legal history. No abuse history. MENTAL STATUS EXAM: The patient is an obese male appearing his stated age. Hygiene is adequate he has a disheveled appearance he is dressed in hospital gowns. Eye contact is appropriate speech is fluent spontaneous and nonpressured. He endorses feelings of hopelessness depression and suicidal ideation. He reports no hallucinations but describes paranoid and persecutory thoughts as noted above. He demonstrates no tangential thinking loose associations or flight of ideas. He does not appear hypomanic or manic. He demonstrates no verbal or physical aggressiveness he demonstrates no abnormal involuntary movements. He is oriented to person place and date. He is able to name the days of the week backwards. Affect is constricted. STRENGTHS/WEAKNESSES: Strengths: Willingness to receive voluntary treatment, compliance with medications weaknesses: Limited social support and resistance to developing social support INTELLECTUAL FUNCTIONING: Average IMPRESSIONS: [] 1. Major depressive disorder recurrent severe with psychosis, generalized anxiety disorder, ADHD 2. Cluster B traits 3 medical comorbidities include obesity hypertension edema PLAN: The patient has been admitted to the mental health unit he is here voluntarily. We reviewed his presenting symptoms and treatment options. In terms of medication we will continue Abilify but change the dosing to 30 mg at bedtime, continue Wellbutrin XL 450 mg daily, Cymbalta has been discontinued we will start Effexor XR 37.5 mg daily, he will have Ativan available as needed. Social work will meet with the patient for a psychosocial assessment. The patient will be seen by internal medicine for routine history and physical exam. The patient is encouraged to participate fully in the milieu we will monitor him for safety.
[2018-02-28] MEDS ORDERED: ALBUTEROL INHALER 60 PUFF/8 GM INHALER INHALATION PRN (12:37)
--- NOTE | 2018-02-28 12:46 | P.CONS ---
History of Present Illness - History of Present Illness Patient presented emergency room with complaints of depression suicidal ideation. Was asked to evaluate for medical consultation. Patient states he does have asthma documented start was provided the Ventolin inhaler. Noted to have chronic lesion on left lower leg needs a biopsy an outpatient setting. Patient also needs a sleep study for sleep apnea outpatient Review of Systems Respiratory: Reports sleep apnea Integumentary: Reports lesions Psychiatric: Reports anxiety, Reports depression Past Medical History Past Medical History: Asthma History of Any Multi-Drug Resistant Organisms: None Reported Past Surgical History: Tonsillectomy Past Anesthesia/Blood Transfusion Reactions: No Reported Reaction Past Psychological History: Depression Smoking Status: Former smoker Past Alcohol Use History: None Reported Past Drug Use History: None Reported Medications and Allergies Home Medications Medication Instructions Recorded Confirmed Type ALPRAZolam [Xanax] 1 mg PO BID 08/15/16 02/27/18 History Acetaminophen [Tylenol] 650 mg PO Q4H PRN 01/19/17 02/27/18 History Propranolol [Inderal] 40 mg PO TID 01/19/17 02/27/18 History buPROPion XL [Wellbutrin XL] 450 mg PO DAILY 01/19/17 02/27/18 History ARIPiprazole [Abilify] 30 mg PO DAILY #30 tab 01/29/17 02/27/18 Rx Pantoprazole [Protonix] 40 mg PO AC-BRKFST #30 tablet. 01/29/17 02/27/18 Rx DULoxetine HCL [Cymbalta] 30 mg PO DAILY 02/27/18 02/27/18 History Furosemide [Lasix] 40 mg PO 0800,1600 02/27/18 02/27/18 History Allergies Allergy/AdvReac Type Severity Reaction Status Date / Time No Known Allergies Allergy Verified 02/27/18 18:12 Physical Exam Vitals: Vital Signs Temp Pulse Pulse Resp BP BP Pulse Ox 02/28/18 06:28 97.9 F 87 16 129/99 02/27/18 21:20 107 H 148/83 02/27/18 20:52 96.7 F L 83 16 144/83 02/27/18 20:26 97.8 F 76 18 134/76 98 02/27/18 16:35 97.1 F L 107 H 18 131/87 99 Intake and Output 02/27/18 02/28/18 02/28/18 22:59 06:59 14:59 Other: Weight 136.988 kg - Constitutional General appearance: mild distress, morbidly obese - EENT Eyes: PERRLA Ears: bilateral: normal - Neck Neck: normal ROM - Respiratory Respiratory: bilateral: CTA - Cardiovascular Rhythm: regular - Gastrointestinal General gastrointestinal: soft - Integumentary Integumentary: normal - Neurologic Neurologic: CNII-XII intact - Musculoskeletal Musculoskeletal: gait normal - Psychiatric Patient disheveled alert and orientated states he continues with suicidal ideation and depression Psychiatric: A&O x's 3, appropriate affect Results CBC & Chem 7: 02/28/18 08:32 02/28/18 08:32 Labs: Abnormal Lab Results - Last 24 Hours (Table) 02/27/18 02/28/18 Range/Units 17:26 08:32 Glucose 121 H (74-99) mg/dL Triglycerides 193 H (<150) mg/dL LDL Cholesterol, Calc 100 H (0-99) mg/dL U Benzodiazepines Scrn Detected H (NotDetected) Assessment and Plan Plan: Assessment Depression Suicidal ideation Left rib pain chest x-ray clear History of asthma inhaler provided for when necessary use Sleep apnea will do outpatient study on discharge Nonhealing lesion to left lower leg we'll biopsy on discharge Morbid obesity Plan We'll continue to monitor patient
[2018-02-28 19:29] LABS: Hemoglobin A1C 6.1 % (4.0-6.0)
[2018-02-28] MEDS: ARIPiprazole 15 MG TAB PO SCH (20:43)
[2018-03-01] MEDS: ACETAMINOPHEN TAB 325 MG TAB PO PRN ×3 (08:28→16:50)
[2018-03-01] MEDS: buPROPion XL 150 MG TAB.ER.24H PO SCH (08:28)
[2018-03-01] MEDS: PANTOPRAZOLE 40 MG TABLET PO SCH (08:28)
[2018-03-01] MEDS: PROPRANOLOL 40 MG TAB PO SCH ×3 (08:28→20:10)
[2018-03-01] MEDS: FUROSEMIDE 40 MG TAB PO SCH ×2 (08:28→15:32)
[2018-03-01] MEDS: VENLAFAXINE HCL ER 37.5 MG CAP PO SCH (08:28)
[2018-03-01] MEDS: IBUPROFEN 800 MG TAB PO PRN ×3 (08:30→22:22)
--- NOTE | 2018-03-01 09:41 | P.PN ---
Progress Note - Text Interval history: The patient is found in his room sleeping he follows me to an interview room. He reports his mood continues to be depressed. He feels tired. He reported eating breakfast this morning but did not attend goal setting group. We reviewed his psychotropic medications as questions were answered. He states he will attend more groups later in the day. Mental status exam: The patient is an obese male appearing his stated age. He has a disheveled appearance, his hair is standing on and, he is dressed in hospital gowns. Eye contact is appropriate speech is fluent spontaneous nonpressured. He continues to endorse a depressed and hopeless mood. He does have suicidal thoughts but overall feels safe here in the hospital. He has ongoing thoughts of being persecuted by the government. He continues to feel he is monitored. He becomes mildly agitated in discussing that topic. He is reporting no thoughts of harming others. He demonstrates no abnormal involuntary movements he demonstrates no verbal or physical aggressiveness. Insight and judgment limited. He remains oriented to person place and date. Plan: The patient will continue on his current psychotropic medications. We will plan to titrate the Effexor XR to 75 mg daily in the next 1-2 days. We will monitor him for safety encourage his participation in the milieu. The patient requires continued psychiatric hospitalization due to the dysfunction his mood and psychotic symptoms are causing.
[2018-03-01] MEDS: LORazepam 1 MG TAB PO PRN ×2 (11:09→20:11)
[2018-03-01] MEDS: ARIPiprazole 15 MG TAB PO SCH (20:09)
[2018-03-02] MEDS: buPROPion XL 150 MG TAB.ER.24H PO SCH (08:15)
[2018-03-02] MEDS: VENLAFAXINE HCL ER 37.5 MG CAP PO SCH (08:15)
[2018-03-02] MEDS: PANTOPRAZOLE 40 MG TABLET PO SCH (08:15)
[2018-03-02] MEDS: PROPRANOLOL 40 MG TAB PO SCH ×3 (08:15→21:04)
[2018-03-02] MEDS: FUROSEMIDE 40 MG TAB PO SCH ×2 (08:15→15:43)
[2018-03-02] MEDS: IBUPROFEN 800 MG TAB PO PRN ×2 (08:16→15:42)
[2018-03-02] MEDS: ACETAMINOPHEN TAB 325 MG TAB PO PRN ×3 (08:17→21:04)
[2018-03-02] MEDS: LORazepam 1 MG TAB PO PRN ×2 (09:42→18:48)
--- NOTE | 2018-03-02 20:41 | P.PN ---
Progress Note - Text Progress Note Date: 03/02/18 Patient complaints of feeling depressed with low motivation. rePorts staying isolated. Reports good sleep. States his appetite has been okay. Complains of fleeting suicidal ideations no plan. No behavioral problems reported. 53-year-old male. He is morbidly obese. He maintains poor eye contact. No abnormal movements noted. His speech is low in volume rate and tone. His thought process is goal directed. His mood is reported as sad and affect constricted. He denies current auditory or visual hallucinations. Denies paranoia. He denies current suicidal or homicidal ideations. He is alert and oriented 4 Her depression recurrent severe with psychotic features Will increase the dose of effexor to 75mg po qday. continue on his current psychotropic medications. monitor him for symptoms encourage his participation in the milieu.
[2018-03-02] MEDS: ARIPiprazole 15 MG TAB PO SCH (21:04)
[2018-03-03] MEDS: PANTOPRAZOLE 40 MG TABLET PO SCH (08:05)
[2018-03-03] MEDS: PROPRANOLOL 40 MG TAB PO SCH ×3 (08:05→20:13)
[2018-03-03] MEDS: FUROSEMIDE 40 MG TAB PO SCH ×2 (08:05→15:07)
[2018-03-03] MEDS: buPROPion XL 150 MG TAB.ER.24H PO SCH (08:06)
[2018-03-03] MEDS: LORazepam 1 MG TAB PO PRN ×2 (08:07→15:07)
[2018-03-03] MEDS: VENLAFAXINE HCL ER 75 MG CAP PO SCH (08:07)
[2018-03-03] MEDS: IBUPROFEN 800 MG TAB PO PRN ×2 (08:07→16:26)
[2018-03-03] MEDS: ACETAMINOPHEN TAB 325 MG TAB PO PRN ×3 (08:08→16:25)
[2018-03-03] MEDS: ARIPiprazole 15 MG TAB PO SCH (20:13)
--- NOTE | 2018-03-03 21:09 | P.PN ---
Progress Note - Text Progress Note Date: 03/03/18 Patient was seen today. He continues to complain about depression. He reports low energy levels and low motivation. Stated he'll force himself to take shower tonight. He reports good sleep and appetite. Denies anger or irritability or agitation. Reports feeling sad due to not having any visits. 53-year-old male. He is morbidly obese. He is pleasant and cooperative. He is dressed casually. Intense good eye contact. Normal movements noted. Speech and thought processes are linear and goal directed. Mood is reported as sad and affect constricted. Denies current auditory or visual hallucinations. He denies paranoia, he denies current suicidal or homicidal ideations. He is alert and oriented 4. Judgment and insight are improving. continue on his current psychotropic medications. monitor him for symptoms encourage his participation in the milieu and therapeutic groups tipple worker to coordinate discharge planning and aftercare.
[2018-03-04] MEDS: ACETAMINOPHEN TAB 325 MG TAB PO PRN ×3 (01:18→17:13)
[2018-03-04] MEDS: IBUPROFEN 800 MG TAB PO PRN ×3 (01:19→20:31)
[2018-03-04] MEDS: LORazepam 1 MG TAB PO PRN ×3 (01:21→20:31)
[2018-03-04] MEDS: buPROPion XL 150 MG TAB.ER.24H PO SCH (08:15)
[2018-03-04] MEDS: PROPRANOLOL 40 MG TAB PO SCH ×3 (08:15→20:31)
[2018-03-04] MEDS: FUROSEMIDE 40 MG TAB PO SCH ×2 (08:15→15:44)
[2018-03-04] MEDS: VENLAFAXINE HCL ER 75 MG CAP PO SCH (08:15)
[2018-03-04] MEDS: PANTOPRAZOLE 40 MG TABLET PO SCH (08:15)
--- NOTE | 2018-03-04 11:18 | P.PN ---
Progress Note - Text Progress Note Date: 03/04/18 Patient was seen for a follow-up examination in [facility] for Dr. Penny. Patient says he is doing well on Wellbutrin 450 mg a day and Abilify 30 mg a day and Effexor 75 mg a day. He thinks he probably needs higher dose of Effexor. Patient has history of what appears to be hypomanic episodes on numerous occasions and 1 manic episode in the past. He also has history of alcohol abuse. He has family history of bipolar disorder also. Patient was counseled about his condition and my reservation about increasing or using antidepressants. He was advised to discuss the matter with his psychiatrist. He does not have any other complaints. He takes his medicines, attends groups, interacts with staff and peers etc. He denies any adverse effects from medication. This is an obese ambulatory white male with adequate hygiene. He has a hearing on his left earlobe. He does not show any psychomotor agitation or retardation. His mood is cheerful and affect is appropriate. He denies hallucinations, delusional thinking, suicidal and homicide thoughts. He is well oriented with adequate memory concentration general knowledge etc. Plan: Continue his medications, groups and other therapies.
[2018-03-04] MEDS: ARIPiprazole 15 MG TAB PO SCH (20:31)
[2018-03-05] MEDS: VENLAFAXINE HCL ER 75 MG CAP PO SCH (08:29)
[2018-03-05] MEDS: FUROSEMIDE 40 MG TAB PO SCH ×2 (08:30→16:01)
[2018-03-05] MEDS: buPROPion XL 150 MG TAB.ER.24H PO SCH (08:30)
[2018-03-05] MEDS: PANTOPRAZOLE 40 MG TABLET PO SCH (08:30)
[2018-03-05] MEDS: PROPRANOLOL 40 MG TAB PO SCH ×3 (08:30→21:06)
[2018-03-05] MEDS: IBUPROFEN 800 MG TAB PO PRN ×2 (08:31→16:04)
[2018-03-05] MEDS: LORazepam 1 MG TAB PO PRN ×2 (08:31→16:04)
--- NOTE | 2018-03-05 10:11 | P.PN ---
Progress Note - Text Interval history: The patient's is found in the hallway he follows me to an interview room. He reports his mood is improving. He still feels depressed but not as hopeless and feels safe here. He slept last night. Appetite is stable. He hopes to continue losing weight as he is trying to modulate his diet. He states his edema in his lower extremities is gone due to his weight loss. He has been attending groups. His Effexor XR was increased over the weekend as planned. We will consider titrating further 250 mg prior to discharge. Mental status exam: The patient is an obese male appearing his stated age. He is dressed in his own clothing. Hygiene is adequate he has a disheveled appearance. Eye contact is good speech is fluent spontaneous nonpressured. He reports no acute suicidal ideation today but does have a depressed mood. He is reporting no homicidal ideation intent or plan. Hopelessness thinking is starting to resolve. He demonstrates no abnormal involuntary movements. He demonstrates no verbal or physical aggressiveness. He is fully oriented to person place and date. Plan: The patient is beginning to stabilize. He will likely be appropriate for discharge on or before Sunday. We will continue to assess him for safety daily. He is encouraged to continue participating in the milieu. We will likely plan to titrate the Effexor XR further.
[2018-03-05] MEDS: ACETAMINOPHEN TAB 325 MG TAB PO PRN ×2 (10:30→19:53)
[2018-03-05] MEDS: ARIPiprazole 15 MG TAB PO SCH (21:06)
[2018-03-06 06:16] VITALS: BP 106/64; PULSE 78; RESP 16; TEMP 97.8
[2018-03-06] MEDS: PANTOPRAZOLE 40 MG TABLET PO SCH (08:08)
[2018-03-06] MEDS: PROPRANOLOL 40 MG TAB PO SCH (08:08)
[2018-03-06] MEDS: VENLAFAXINE HCL ER 75 MG CAP PO SCH (08:08)
[2018-03-06] MEDS: buPROPion XL 150 MG TAB.ER.24H PO SCH (08:08)
[2018-03-06] MEDS: FUROSEMIDE 40 MG TAB PO SCH (08:08)
[2018-03-06] MEDS: IBUPROFEN 800 MG TAB PO PRN (08:09)
[2018-03-06] MEDS: LORazepam 1 MG TAB PO PRN (08:50)
--- NOTE | 2018-03-06 10:06 | P.DS ---
Providers Date of admission: 02/27/18 20:12 Expected date of discharge: 03/06/18 Attending physician: David Penny Consults: 02/27/18 20:15 Consult Physician Routine Consulting Provider: Rufino Uriostegui Consult Reason/Comments: Medical Management Do you want consulting provider notified?: Yes Primary care physician: Rufino Haddad Moody - Discharge Diagnosis(es) (1) Major depressive disorder, recurrent, severe with psychotic features Current Visit: No Status: Acute Priority: High (2) Generalized anxiety disorder Current Visit: No Status: Acute Priority: High (3) ADHD (attention deficit hyperactivity disorder) Current Visit: No Status: Acute Priority: Medium Hospital Course: Brief summary of admission note: This patient is a 53-year-old male who was admitted to the mental health unit through the emergency room for acute suicidal ideation and symptoms of psychosis. The patient reported he was feeling depressed and suicidal. In the outpatient venue we had been changing his Cymbalta to Effexor XR. He felt overwhelmed by the titration. When his mood is exacerbated he will reexperience symptoms of psychosis where he has thoughts of the government being after him. For full details please refer to the psychiatric evaluation dated 02/28/2018. Summary of hospital course: The patient was admitted to the mental health unit voluntarily. We reviewed his presenting symptoms and treatment options. We decided to proceed with our outpatient plan of tapering him off of Cymbalta and onto Effexor XR. We continued his other psychotropic medications. He was seen by internal medicine for routine history and physical exam. The patient selectively participated in groups and this did improve during the course of the hospitalization. He has noted a resolution of suicidal ideation. He is no longer spontaneously describing psychotic symptoms. He has been able to sleep at night he is able to demonstrate an ability to care for himself. He feels stable to be transition back to outpatient care. Mental status exam: The patient is an obese male appearing his stated age. Dressed in his own clothing. Hygiene is adequate he does have a disheveled appearance. Eye contact is good speech is spontaneous fluent nonpressured. He reports his mood is improved he denies having any hopelessness thinking or any suicidal or homicidal ideation intent or plan. He is reporting no auditory or visual hallucinations at this time. He chronically has a thought that he is being monitored and followed by the government but he does not spontaneously speak of it today. He endorses no command auditory hallucinations. He demonstrates no tangential thinking loose associations or flight of ideas. He does not appear hypomanic or manic. He continues to be oriented to person place and date. He demonstrates no verbal or physical aggressiveness he demonstrates no abnormal involuntary movements. Affect is appropriately expressive. Impressions 1. Major depressive disorder recurrent severe with psychosis, generalized anxiety disorder, ADHD 2. Cluster B traits 3. Medical committees include obesity and hypertension Plan: The patient will be discharged mental health unit today. He will return to his own residence. He will follow up with myself for outpatient psychiatric medication management and Sarita Oscar for outpatient psychotherapy. We will continue Effexor XR 75 mg daily, Wellbutrin XL 450 mg daily, propranolol 40 mg 3 times daily, Xanax 1 mg twice daily, Abilify 30 mg at bedtime. There is no imminent safety risk the patient is appropriate for transition to outpatient care. He is instructed to return to the hospital with any acute safety issues. He does not wish to have anyone called in for a support meeting. Patient Condition at Discharge: Stable Plan - Discharge Summary Discharge Rx Participant: No New Discharge Prescriptions: New ARIPiprazole [Abilify] 30 mg PO HS tab Venlafaxine HCl ER [Effexor XR] 75 mg PO DAILY cap.er.24h Continue ALPRAZolam [Xanax] 1 mg PO BID Propranolol [Inderal] 40 mg PO TID Pantoprazole [Protonix] 40 mg PO AC-BRKFST #30 tablet. Furosemide [Lasix] 40 mg PO 0800,1600 buPROPion XL [Wellbutrin XL] 450 mg PO DAILY #90 tab.er.24h Discontinued Acetaminophen [Tylenol] 650 mg PO Q4H PRN PRN Reason: Fever And/ Or Pain ARIPiprazole [Abilify] 30 mg PO DAILY #30 tab DULoxetine HCL [Cymbalta] 30 mg PO DAILY Discharge Medication List ALPRAZolam [Xanax] 1 mg PO BID 08/15/16 [History] Propranolol [Inderal] 40 mg PO TID 01/19/17 [History] Pantoprazole [Protonix] 40 mg PO AC-BRKFST #30 tablet. 01/29/17 [Rx] Furosemide [Lasix] 40 mg PO 0800,1600 02/27/18 [History] ARIPiprazole [Abilify] 30 mg PO HS tab 03/06/18 [Rx] Venlafaxine HCl ER [Effexor XR] 75 mg PO DAILY cap.er.24h 03/06/18 [Rx] buPROPion XL [Wellbutrin XL] 450 mg PO DAILY #90 tab.er.24h 03/06/18 [Rx] Follow up Appointment(s)/Referral(s): Rufino Uriostegui MD [Primary Care Provider] - 1-2 days David Penny DO [Medical Doctor] - 1 Week (03/08/17 @ 08:00 with Sarita 03/22/17 @ 14:[address] Penny)
[2018-03-06] MEDS: ACETAMINOPHEN TAB 325 MG TAB PO PRN (10:24)
== END 2018-03-06 11:31 | disposition home or self-care (01) | DRG 885 ==
LOC: EC 16:30 → 3MHU 20:12
PROVIDERS: ADMIT Psychiatry & Neurology Psychiatry; ATTEND Psychiatry & Neurology Psychiatry
DX: F33.3 Major depressive disorder, recurrent, severe with psychotic symptoms (principal); R45.851 Suicidal ideations; Z68.41 Body mass index [BMI] 40.0-44.9, adult; E66.01 Morbid (severe) obesity due to excess calories; F41.1 Generalized anxiety disorder; F90.9 Attention-deficit hyperactivity disorder, unspecified type; G47.30 Sleep apnea, unspecified; I10 Essential (primary) hypertension; J45.909 Unspecified asthma, uncomplicated; R45.850 Homicidal ideations; Z79.899 Other long term (current) drug therapy; Z87.891 Personal history of nicotine dependence; Z91.5 Personal history of self-harm
CPT/HCPCS: 80053; 80061; 80306; 82075; 83036; 84443; 85025; 99285

== ENCOUNTER 2018-10-15 15:30 | Inpatient (IN) | payer MEDICARE ==
--- NOTE | 2018-10-15 16:18 | ED ---
General Adult HPI - General Chief complaint: Psychiatric Symptoms Stated complaint: SUICIDAL Time Seen by Provider: 10/15/18 15:35 Source: patient, RN notes reviewed Mode of arrival: ambulatory Limitations: no limitations - History of Present Illness Initial comments: This is a 53-year-old male presents emergency Department who was seeing Dr. Reed psychiatrist today. Patient states he indicated Dr. Mosqueda wanted to kill himself and has been wanted to kill himself the last 2 weeks. Patient states he hasn't done anything recently but he has gotten a plan more recently. Patient states he wants to kill himself by overdosing. Patient states she's also been hearing voices again. Patient denies any physical complaints today. Patient denies headache patient denies numbness weakness. Patient denies any lightheadedness dizziness or near syncopal episode. Patient denies chest pain palpitations difficulty breathing or shortness of breath. Patient denies any recent fever chills or cough per patient denies any abdominal pain patient denies nausea vomiting or diarrhea. Patient denies any recent injury or trauma. - Related Data Home Medications Medication Instructions Recorded Confirmed ALPRAZolam [Xanax] 1 mg PO BID 08/15/16 03/01/18 Propranolol [Inderal] 40 mg PO TID 01/19/17 03/01/18 Furosemide [Lasix] 40 mg PO 0800,1600 02/27/18 03/01/18 Previous Rx's Medication Instructions Recorded Pantoprazole [Protonix] 40 mg PO AC-BRKFST #30 tablet. 01/29/17 ARIPiprazole [Abilify] 30 mg PO HS tab 03/06/18 Venlafaxine HCl ER [Effexor XR] 75 mg PO DAILY cap.er.24h 03/06/18 buPROPion XL [Wellbutrin XL] 450 mg PO DAILY #90 tab.er.24h 03/06/18 Allergies Allergy/AdvReac Type Severity Reaction Status Date / Time No Known Allergies Allergy Verified 03/01/18 03:05 Review of Systems ROS Statement: Those systems with pertinent positive or pertinent negative responses have been documented in the HPI. ROS Other: All systems not noted in ROS Statement are negative. Past Medical History Past Medical History: Asthma History of Any Multi-Drug Resistant Organisms: None Reported Past Surgical History: Tonsillectomy Past Anesthesia/Blood Transfusion Reactions: No Reported Reaction Past Psychological History: Depression Smoking Status: Former smoker Past Alcohol Use History: Abuse Past Drug Use History: None Reported General Exam - General Exam Comments Initial Comments: GENERAL: Patient is well-developed and well-nourished. Patient is nontoxic and well- hydrated and is in mild distress. ENT: Neck is soft and supple. No significant lymphadenopathy is noted. Oropharynx is clear. Moist mucous membranes. Neck has full range of motion without eliciting any pain. EYES: The sclera were anicteric and conjunctiva were pink and moist. Extraocular movements were intact and pupils were equal round and reactive to light. Eyelids were unremarkable. PULMONARY: Unlabored respirations. Good breath sounds bilaterally. No audible rales rhonchi or wheezing was noted. CARDIOVASCULAR: There is a regular rate and rhythm without any murmurs gallops or rubs. ABDOMEN: Soft and nontender with normal bowel sounds. No palpable organomegaly was noted. There is no palpable pulsatile mass. SKIN: Skin is clear with no lesions or rashes and otherwise unremarkable. NEUROLOGIC: Patient is alert and oriented x3. Cranial nerves II through XII are grossly intact. Motor and sensory are also intact. Normal speech, volume and content. Symmetrical smile. MUSCULOSKELETAL: Normal extremities with adequate strength and full range of motion. No lower extremity swelling or edema. No calf tenderness. LYMPHATICS: No significant lymphadenopathy is noted PSYCHIATRIC: Patient states he suicidal and is hearing voices again. Limitations: no limitations Course Vital Signs 10/15/18 15:34 Temperature 98.0 F Pulse Rate 85 Respiratory 18 Rate Blood Pressure 172/88 O2 Sat by Pulse 97 Oximetry Medical Decision Making - Medical Decision Making EPS evaluated the patient decided the patient needed to be admitted after they spoke with Dr. Penny Disposition Clinical Impression: Suicidal ideation Disposition: ADMITTED IP TO THIS HOSP Time of Disposition: 16:47
[2018-10-15] MEDS ORDERED: MAG HYDROX/AL HYDROX/SIMETH 30 ML CUP PO PRN (16:41)
[2018-10-15] MEDS ORDERED: MAGNESIUM HYDROXIDE 2,400 MG/10 ML CUP PO PRN (16:41)
[2018-10-15 16:53] LABS: Amphetamine Screen,Urine Not Detected (NotDetected); Barbiturate Screen,Urine Not Detected (NotDetected); Benzodiazepines Screen,Urine Detected (NotDetected); Cocaine Screen,Urine Not Detected (NotDetected); Methadone Screen, Urine Not Detected (NotDetected); Opiate Screen,Urine Not Detected (NotDetected); Oxycodone Screen, Urine Not Detected (NotDetected); Phencyclidine Screen,Urine Not Detected (NotDetected); Tricyclic Antidepressant,Urine Not Detected (NotDetected); Urn Cannabinoid Scrn Not Detected (NotDetected)
[2018-10-15 17:44] VITALS: BMI 45.1
[2018-10-15] MEDS ORDERED: HALOPERIDOL LACTATE 5 MG/ML 1 ML VIAL IM SCH ×2 (19:00→22:00)
[2018-10-15] MEDS ORDERED: HALOPERIDOL ORAL SOLN 10 MG/5 ML CUP PO PRN (19:00)
[2018-10-15] MEDS ORDERED: HALOPERIDOL LACTATE 5 MG/ML 1 ML VIAL IM PRN (19:15)
[2018-10-15] MEDS: ALPRAZolam 1 MG TAB PO SCH (20:21)
[2018-10-15] MEDS: PROPRANOLOL 40 MG TAB PO SCH (20:21)
[2018-10-15] MEDS: ACETAMINOPHEN TAB 325 MG TAB PO PRN (20:21)
[2018-10-15] MEDS ORDERED: ARIPiprazole 15 MG TAB PO SCH (21:00)
[2018-10-15] MEDS ORDERED: HALOPERIDOL ORAL SOLN 10 MG/5 ML CUP PO SCH (22:00)
[2018-10-16] MEDS ORDERED: NICOTINE 14MG/24HR PATCH TRANSDERM SCH (09:00)
[2018-10-16] MEDS: DULoxetine HCL 60 MG CAPSULE.DR PO SCH (09:08)
[2018-10-16] MEDS: ALPRAZolam 1 MG TAB PO SCH ×2 (09:08→20:20)
[2018-10-16] MEDS: buPROPion XL 150 MG TAB.ER.24H PO SCH (09:08)
[2018-10-16] MEDS: PROPRANOLOL 40 MG TAB PO SCH ×3 (09:08→20:20)
[2018-10-16 10:16] LABS: Basophils % (A) 1 %; Eosinophils # (A) 0.3 k/uL (0-0.7); Eosinophils % (A) 4 %; HCT 43.2 % (39.0-53.0); HGB 14.2 gm/dL (13.0-17.5); Lymphocytes # (A) 1.7 k/uL (1.0-4.8); Lymphocytes % (A) 21 %; MCH 30.5 pg (25.0-35.0); MCHC 32.9 g/dL (31.0-37.0); MCV 92.8 fL (80.0-100.0); Mean Platelet Volume 6.6; Monocytes # (A) 0.4 k/uL (0-1.0); Monocytes % (A) 4 %; Neutrophils # (A) 5.6 k/uL (1.3-7.7); Neutrophils % (A) 68 %; Platelet Count 299 k/uL (150-450); RBC 4.66 m/uL (4.30-5.90); RDW 13.6 % (11.5-15.5); WBC 8.2 k/uL (3.8-10.6)
[2018-10-16 10:17] LABS: ALT 44 U/L (21-72); AST 37 U/L (17-59); Albumin 4.1 g/dL (3.5-5.0); Alkaline Phosphatase 61 U/L (38-126); Anion Gap 10 mmol/L; Blood Urea Nitrogen 13 mg/dL (9-20); Calcium 9.7 mg/dL (8.4-10.2); Carbon Dioxide 25 mmol/L (22-30); Chloride 105 mmol/L (98-107); Cholesterol 196 mg/dL (<200); Glucose 136 mg/dL (74-99); HDL Cholesterol 44 mg/dL (40-60); Potassium 4.3 mmol/L (3.5-5.1); Sodium 140 mmol/L (137-145); Total Bilirubin 0.6 mg/dL (0.2-1.3); Total Protein 7.2 g/dL (6.3-8.2); Triglycerides 223 mg/dL (<150)
[2018-10-16 10:18] LABS: LDL Cholesterol,Calculated 107 mg/dL (0-99)
[2018-10-16] MEDS: ZIPRASIDONE 40 MG CAP PO SCH ×2 (10:35→20:20)
--- NOTE | 2018-10-16 11:03 | P.HP ---
Psychiatric H&P - . History & Physical: Allergies Allergy/AdvReac Type Severity Reaction Status Date / Time No Known Allergies Allergy Verified 03/01/18 03:05 Vital Signs Temp 97.6 F 10/16/18 06:30 Pulse 115 H 10/16/18 09:10 Resp 22 10/16/18 09:10 BP 132/72 10/16/18 09:10 Pulse Ox 97 10/15/18 15:34 Intake & Output 10/15/18 10/16/18 10/16/18 18:59 06:59 18:59 Weight 134.774 kg Laboratory Last Values WBC 8.2 k/uL (3.8-10.6) 10/16/18 09:30 RBC 4.66 m/uL (4.30-5.90) 10/16/18 09:30 Hgb 14.2 gm/dL (13.0-17.5) 10/16/18 09:30 Hct 43.2 % (39.0-53.0) 10/16/18 09:30 MCV 92.8 fL (80.0-100.0) 10/16/18 09:30 MCH 30.5 pg (25.0-35.0) 10/16/18 09:30 MCHC 32.9 g/dL (31.0-37.0) 10/16/18 09:30 RDW 13.6 % (11.5-15.5) 10/16/18 09:30 Plt Count 299 k/uL (150-450) 10/16/18 09:30 Neutrophils % 68 % 10/16/18 09:30 Lymphocytes % 21 % 10/16/18 09:30 Monocytes % 4 % 10/16/18 09:30 Eosinophils % 4 % 10/16/18 09:30 Basophils % 1 % 10/16/18 09:30 Neutrophils # 5.6 k/uL (1.3-7.7) 10/16/18 09:30 Lymphocytes # 1.7 k/uL (1.0-4.8) 10/16/18 09:30 Monocytes # 0.4 k/uL (0-1.0) 10/16/18 09:30 Eosinophils # 0.3 k/uL (0-0.7) 10/16/18 09:30 Basophils # 0.0 k/uL (0-0.2) 10/16/18 09:30 Sodium 140 mmol/L (137-145) 10/16/18 09:30 Potassium 4.3 mmol/L (3.5-5.1) 10/16/18 09:30 Chloride 105 mmol/L (98-107) 10/16/18 09:30 Carbon Dioxide 25 mmol/L (22-30) 10/16/18 09:30 Anion Gap 10 mmol/L 10/16/18 09:30 BUN 13 mg/dL (9-20) 10/16/18 09:30 Creatinine 0.83 mg/dL (0.66-1.25) 10/16/18 09:30 Est GFR (CKD-EPI)AfAm >90 (>60 ml/min/1.73 sqM) 10/16/18 09:30 Est GFR (CKD-EPI)NonAf >90 (>60 ml/min/1.73 sqM) 10/16/18 09:30 Glucose 136 mg/dL (74-99) H 10/16/18 09:30 Calcium 9.7 mg/dL (8.4-10.2) 10/16/18 09:30 Total Bilirubin 0.6 mg/dL (0.2-1.3) 10/16/18 09:30 AST 37 U/L (17-59) 10/16/18 09:30 ALT 44 U/L (21-72) 10/16/18 09:30 Alkaline Phosphatase 61 U/L (38-126) 10/16/18 09:30 Total Protein 7.2 g/dL (6.3-8.2) 10/16/18 09:30 Albumin 4.1 g/dL (3.5-5.0) 10/16/18 09:30 Triglycerides 223 mg/dL (<150) H 10/16/18 09:30 Cholesterol 196 mg/dL (<200) 10/16/18 09:30 LDL Cholesterol, Calc 107 mg/dL (0-99) H 10/16/18 09:30 HDL Cholesterol 44 mg/dL (40-60) 10/16/18 09:30 TSH 2.700 mIU/L (0.465-4.680) 10/16/18 09:30 Urine Opiates Screen Not Detected (NotDetected) 10/15/18 16:29 Ur Oxycodone Screen Not Detected (NotDetected) 10/15/18 16:29 Urine Methadone Screen Not Detected (NotDetected) 10/15/18 16:29 Ur Propoxyphene Screen Not Detected (NotDetected) 10/15/18 16:29 Ur Barbiturates Screen Not Detected (NotDetected) 10/15/18 16:29 U Tricyclic Antidepress Not Detected (NotDetected) 10/15/18 16:29 Ur Phencyclidine Scrn Not Detected (NotDetected) 10/15/18 16:29 Ur Amphetamines Screen Not Detected (NotDetected) 10/15/18 16:29 U Methamphetamines Scrn Not Detected (NotDetected) 10/15/18 16:29 U Benzodiazepines Scrn Detected (NotDetected) H 10/15/18 16:29 Urine Cocaine Screen Not Detected (NotDetected) 10/15/18 16:29 U Marijuana (THC) Screen Not Detected (NotDetected) 10/15/18 16:29 10/16/18 10:54 IDENTIFYING DATA: This patient is a 53-year-old male who was admitted to the mental health unit directly from my office for suicidal ideation and worsening symptoms of psychosis. HPI: The patient is known to my outpatient practice for the last several years. He carries a diagnosis of major depressive disorder and psychosis when the mood symptoms become severe. He is known to have generalized anxiety disorder and ADHD symptoms. He presented stating his ex- told him he can no longer contact her and he would not be able to see one of their daughters. He became distraught and states he's been disowned. He reported that's all he had to live for and he just wanted to . He states that he accidentally texted a pornographic image to his ex- which prompted her to cut off contact with him. The patient reports she's been compliant with his psychotropic medication. He indicates he has not been caring for himself he's been excessively eating fast food his weight has increased. He feels hopeless. When his symptoms worsen he begins speaking about concerns related to the government. 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 He states he didn't do anything but he still feels he is being followed and framed. PAST PSYCHIATRIC HISTORY: The patient has had numerous inpatient psychiatric admissions the last one was in February. He is currently treated with Wellbutrin XL 450 mg daily, Cymbalta 120 mg daily, Xanax 1 mg up to twice daily as needed, propranolol 40 mg 3 times daily, Abilify 30 mg daily. He has been on several psychotropic medications in the past. He was on Risperdal for symptoms of psychosis in the past. PMH: Obesity ALLERGIES: NO KNOWN DRUG ALLERGIES MEDICATIONS: Refer to [facility] CHEMICAL DEPENDENCY HISTORY: He reports no use of alcohol marijuana or illicit drugs, his drug screen was negative except for benzodiazepines which are prescribed FAMILY PSYCHIATRIC HISTORY: He has 2 daughters that are severely autistic FAMILY CHEMICAL DEPENDENCY HISTORY: Unknown SOCIAL HISTORY: The patient is a 53-year-old male he is he lives alone in his own apartment. 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 He has very little social support other than his ex-. Legal history none reported abuse history unknown MENTAL STATUS EXAM: The patient is a morbidly obese male appearing his stated age. His hairs grown out longer. Eye contact is appropriate speech is fluent spontaneous nonpressured. He endorses a depressed mood hopelessness thoughts. He endorses continued suicidal ideation with no homicidal ideation intent or plan. He reports auditory hallucinations that are noncommanding but derogatory. He endorses delusional thoughts that are paranoid in nature. He demonstrates no verbal or physical aggressiveness. He demonstrates no involuntary repetitive movements. Insight and judgment limited. He is oriented to person place and date. He is able to spell world backwards. STRENGTHS/WEAKNESSES: Strengths: Income, housing weaknesses: Limited social support INTELLECTUAL FUNCTIONING: Average IMPRESSIONS: [] 1. Major depressive disorder recurrent severe with psychosis, generalized anxiety disorder, ADHD inattentive type PLAN: The patient's has been admitted to the mental health unit voluntarily. We reviewed his presenting symptoms and treatment options. We will cross taper him off of Abilify and initiate Geodon and titrate that to a therapeutic dose during the course of the hospitalization. He will continue on the Wellbutrin Cymbalta propranolol and Xanax at this time. Social work has met with the patient to complete a psychosocial assessment. He will undergo a routine history and physical exam. He is encouraged to participate in groups. We will monitor him for safety.
[2018-10-16] MEDS: ACETAMINOPHEN TAB 325 MG TAB PO PRN ×2 (12:50→17:00)
--- NOTE | 2018-10-16 13:03 | P.CONS ---
History of Present Illness - History of Present Illness 53-year-old male was admitted to the emergency room with diagnosis of suicidal ideation. Patient stated he said some family stress. Patient complaining of bilateral knee pain chronic. +2 ankle edema. History of asthma stable. Patient does have intermittent smoking Review of Systems Cardiovascular: Reports edema Musculoskeletal: bilateral: knee pain Psychiatric: Reports depression, Reports suicidal ideation Past Medical History Past Medical History: Asthma History of Any Multi-Drug Resistant Organisms: None Reported Past Surgical History: Tonsillectomy Past Anesthesia/Blood Transfusion Reactions: No Reported Reaction Smoking Status: Current every day smoker Medications and Allergies Home Medications Medication Instructions Recorded Confirmed Type ALPRAZolam [Xanax] 1 mg PO BID 08/15/16 03/01/18 History Propranolol [Inderal] 40 mg PO TID 01/19/17 03/01/18 History Pantoprazole [Protonix] 40 mg PO AC-BRKFST #30 tablet.dr 01/29/17 03/01/18 Rx Furosemide [Lasix] 40 mg PO 0800,1600 02/27/18 03/01/18 History ARIPiprazole [Abilify] 30 mg PO HS tab 03/06/18 Rx Venlafaxine HCl ER [Effexor XR] 75 mg PO DAILY cap.er.24h 03/06/18 Rx buPROPion XL [Wellbutrin XL] 450 mg PO DAILY #90 tab.er.24h 03/06/18 Rx Allergies Allergy/AdvReac Type Severity Reaction Status Date / Time No Known Allergies Allergy Verified 03/01/18 03:05 Physical Exam Vitals: Vital Signs Temp Pulse Pulse Pulse Resp BP BP 10/16/18 09:10 115 H 22 132/72 10/16/18 06:30 97.6 F 93 16 10/15/18 20:26 107 H 16 10/15/18 17:09 98.0 F 82 16 10/15/18 16:50 98.0 F 82 16 10/15/18 15:34 98.0 F 85 18 172/88 BP Pulse Ox 10/16/18 09:10 10/16/18 06:30 117/71 10/15/18 20:26 132/74 10/15/18 17:09 176/80 10/15/18 16:50 176/80 10/15/18 15:34 97 Intake and Output 10/15/18 10/16/18 10/16/18 22:59 06:59 14:59 Other: Weight 134.774 kg - Constitutional General appearance: mild distress - EENT Eyes: PERRLA Ears: bilateral: normal - Neck Neck: normal ROM - Respiratory Respiratory: bilateral: CTA - Cardiovascular Rhythm: regular ankle Peripheral Edema: bilateral: 2+ - Gastrointestinal General gastrointestinal: soft - Integumentary Integumentary: normal - Neurologic Neurologic: CNII-XII intact - Musculoskeletal Musculoskeletal: gait normal - Psychiatric Psychiatric: A&O x's 3, appropriate affect, intact judgment & insight Results CBC & Chem 7: 10/16/18 09:30 10/16/18 09:30 Labs: Abnormal Lab Results - Last 24 Hours (Table) 10/15/18 10/16/18 Range/Units 16:29 09:30 Glucose 136 H (74-99) mg/dL Triglycerides 223 H (<150) mg/dL LDL Cholesterol, Calc 107 H (0-99) mg/dL U Benzodiazepines Scrn Detected H (NotDetected) Assessment and Plan Plan: Assessment Depression suicidal ideation Bilateral knee pain chronic +2 ankle edema chronic Nicotine use Asthma stable Plan We'll start hydrochlorothiazide for ankle edema We'll monitor patient condition Medically stable at this point
[2018-10-16] MEDS ORDERED: ARIPiprazole 15 MG TAB PO SCH (21:00)
[2018-10-16 21:01] LABS: Hemoglobin A1C 5.4 % (4.0-6.0)
[2018-10-17] MEDS: ZIPRASIDONE 40 MG CAP PO SCH ×2 (08:09→20:37)
[2018-10-17] MEDS: ACETAMINOPHEN TAB 325 MG TAB PO PRN ×4 (08:09→20:38)
[2018-10-17] MEDS: DULoxetine HCL 60 MG CAPSULE.DR PO SCH (08:09)
[2018-10-17] MEDS: PANTOPRAZOLE 40 MG TABLET PO SCH (08:09)
[2018-10-17] MEDS: PROPRANOLOL 40 MG TAB PO SCH ×3 (08:09→20:37)
[2018-10-17] MEDS: ALPRAZolam 1 MG TAB PO SCH ×2 (08:09→20:37)
[2018-10-17] MEDS: buPROPion XL 150 MG TAB.ER.24H PO SCH (08:09)
[2018-10-17] MEDS: HYDROCHLOROTHIAZIDE 25 MG TAB PO SCH (08:09)
--- NOTE | 2018-10-17 09:18 | P.PN ---
Progress Note - Text Interval history: The patient is found in his room he follows me to an interview room. He reports his mood is still depressed he still has hopelessness thinking with occasional suicidal thoughts. He states he experiencing auditory hallucination this morning which she thought was related to the [employer]. He states "I cussed them out". He reports eating meals. He did not shower yesterday. He has not been attending groups. We reviewed his psychotropic medications and his questions were answered. Mental status exam: The patient is a morbidly obese unkempt male appearing his stated age. He is dressed in hospital gowns. He moves slowly. Eye contact is appropriate speech is fluent spontaneous nonpressured. He endorses a depressed mood with ongoing suicidal thoughts. He reports auditory hallucinations intermittently. He is experiencing no command auditory hallucinations. He demonstrates no verbal or physical aggressiveness. He demonstrates no involuntary repetitive movements. No homicidal ideation intent or plan. He remains oriented to person place and date. Affect is bland. Plan: We will continue with the plan of cross tapering off of Abilify and onto Geodon. Will reduce his Abilify to 10 mg at bedtime tonight and tomorrow we will likely titrate the Geodon further. He is encouraged to participate in the milieu. Vital signs reviewed they're within normal limits. We will continue to monitor him for safety.
[2018-10-17] MEDS ORDERED: ARIPiprazole 10 MG TAB PO SCH (21:00)
[2018-10-18] MEDS: ALPRAZolam 1 MG TAB PO SCH (07:53)
[2018-10-18] MEDS: PANTOPRAZOLE 40 MG TABLET PO SCH (07:53)
[2018-10-18] MEDS: ZIPRASIDONE 40 MG CAP PO SCH ×2 (07:54→20:38)
[2018-10-18] MEDS: PROPRANOLOL 40 MG TAB PO SCH ×3 (07:54→20:38)
[2018-10-18] MEDS: buPROPion XL 150 MG TAB.ER.24H PO SCH (07:54)
[2018-10-18] MEDS: HYDROCHLOROTHIAZIDE 25 MG TAB PO SCH (07:54)
[2018-10-18] MEDS: DULoxetine HCL 60 MG CAPSULE.DR PO SCH (07:54)
[2018-10-18] MEDS: ACETAMINOPHEN TAB 325 MG TAB PO PRN ×4 (07:55→20:40)
--- NOTE | 2018-10-18 09:47 | P.PN ---
Progress Note - Text Interval history: The patient is found in his room he follows me to an interview room. He indicates significant concern over how his ex- we'll treat him upon discharge. We reviewed the situation and reviewed different strategies he could employ. He feels sad that nobody reaches out to check on him while he is hospitalized. We reviewed his psychotropic medications his questions were answered. We will discontinue the Abilify. he feels that the Xanax does not need to be scheduled and we will change that to when necessary dosing. He is feeling more tired and it is likely due to the scheduled Xanax. Mental status exam: The patient is an overweight male. Hygiene grooming improved. Eye contact appropriate. He is dressed in his own clothing. He participates in the conversation demonstrating spontaneous nonpressured speech. He indicates his mood is still depressed and anxious he still has hopeless thoughts. He does feel safe here in the hospital. He is indicating no homicidal ideation. He is reporting no auditory or visual hallucinations today. He demonstrates no verbal or physical aggressiveness. He demonstrates no involuntary repetitive movements. Plan: The patient will continue on the Geodon 40 mg twice daily, the Xanax will be changed to when necessary dosing, Abilify will be discontinued. We will continue his other psychotropic medication. Vital signs reviewed they're within normal limits. He is encouraged to participate in groups. He states that he did go to a group this morning and plans on going to more throughout the day.
[2018-10-19] MEDS: PANTOPRAZOLE 40 MG TABLET PO SCH (07:56)
[2018-10-19] MEDS: PROPRANOLOL 40 MG TAB PO SCH ×3 (07:56→20:14)
[2018-10-19] MEDS: ZIPRASIDONE 40 MG CAP PO SCH ×2 (07:56→20:13)
[2018-10-19] MEDS: buPROPion XL 150 MG TAB.ER.24H PO SCH (07:56)
[2018-10-19] MEDS: DULoxetine HCL 60 MG CAPSULE.DR PO SCH (07:56)
[2018-10-19] MEDS: ACETAMINOPHEN TAB 325 MG TAB PO PRN ×3 (07:57→17:09)
[2018-10-19] MEDS: HYDROCHLOROTHIAZIDE 25 MG TAB PO SCH (07:58)
--- NOTE | 2018-10-19 15:39 | P.PN ---
Progress Note - Text Progress Note Date: 10/19/18 Interval history: Patient seen in [facility] [place] today. He states that he is feeling better today. His mood is doing better. Says he slept about 8 hours last night. He states prior he was sleeping excessively. He talks about depression bring him into the hospital. He was also having thoughts of suicide. He denies any current thoughts of suicide. He does not seem to voice any adverse psychotropic medication side effects. Mental status exam: He is alert and cooperative with the interview. Speech is fluent, not rapid or pressured. Thought processes organized. His mood today appears improved. He denies any current thoughts of suicide. He does not voice any thoughts of harm to others. He has not verbalize any current auditory hallucinations. He does not show any evidence of agitation. Plan/recommendations: Patient will be maintained on current psychotropic medication regimen. Continue to monitor for any medication side effects and monitor his ongoing response to treatment.
[2018-10-19] MEDS: ALPRAZolam 1 MG TAB PO PRN (20:25)
[2018-10-20] MEDS: buPROPion XL 150 MG TAB.ER.24H PO SCH (07:46)
[2018-10-20] MEDS: PANTOPRAZOLE 40 MG TABLET PO SCH (07:47)
[2018-10-20] MEDS: ALPRAZolam 1 MG TAB PO PRN ×2 (07:47→20:18)
[2018-10-20] MEDS: PROPRANOLOL 40 MG TAB PO SCH ×3 (07:47→20:52)
[2018-10-20] MEDS: ACETAMINOPHEN TAB 325 MG TAB PO PRN ×3 (07:47→17:02)
[2018-10-20] MEDS: DULoxetine HCL 60 MG CAPSULE.DR PO SCH (07:47)
[2018-10-20] MEDS: ZIPRASIDONE 40 MG CAP PO SCH ×2 (07:47→20:18)
[2018-10-20] MEDS: HYDROCHLOROTHIAZIDE 25 MG TAB PO SCH (07:50)
--- NOTE | 2018-10-20 15:38 | P.PN ---
Progress Note - Text Progress Note Date: 10/20/18 Interval history: Patient is seen in cross coverage again today. He states that last night he was upset by a peer on the unit and had thoughts of getting physical with the peer. He went to nursing staff and was given when necessary medication which helped. He is encouraged regarding using coping skills. He denies any current thoughts of harm to self or others. He says he was having hallucinations last night of a conversation. Mental status exam: He is alert and cooperative with the interview. His speech is fluent, not rapid or pressured. Thought processes organized. His mood overall seems to be improved. His affect does show range. He denies any current thoughts of harm to self or others. He does not verbalize any current hallucinations. He does not show any agitation. Plan: Patient will be maintained on current psychotropic medication regimen. Continue to monitor for medication side effects and monitor his ongoing response to treatment. He is encouraged regarding using coping skills.
[2018-10-21] MEDS: DULoxetine HCL 60 MG CAPSULE.DR PO SCH (08:14)
[2018-10-21] MEDS: ZIPRASIDONE 40 MG CAP PO SCH (08:14)
[2018-10-21] MEDS: PROPRANOLOL 40 MG TAB PO SCH ×3 (08:14→20:19)
[2018-10-21] MEDS: PANTOPRAZOLE 40 MG TABLET PO SCH (08:15)
[2018-10-21] MEDS: buPROPion XL 150 MG TAB.ER.24H PO SCH (08:15)
[2018-10-21] MEDS: HYDROCHLOROTHIAZIDE 25 MG TAB PO SCH (08:15)
[2018-10-21] MEDS: ACETAMINOPHEN TAB 325 MG TAB PO PRN ×3 (08:16→20:19)
--- NOTE | 2018-10-21 11:41 | P.PN ---
Progress Note - Text Interval history: The patient is found in his room he follows me to an interview room. He states he still feels depressed he continues to have suicidal thoughts. He is indicated on paperwork in group that he suicidal. He states that he was involved in a situation with another patient that made him feel angry and aggressive and he went to staff for assistance and he was given as needed medication. The patient has been very selectively attending groups for short periods of time. He did not participate in any phone calls over the weekend. We reviewed his psychotropic medication his questions were answered. We continue to highlight skills he can work on while here to promote his well- being. Mental status exam: The patient is an overweight male he is dressed in his own clothing. He has a disheveled appearance. Hygiene grooming fair. Eye contact is appropriate. He is cooperative and pleasant throughout our interaction. He reports a depressed mood with suicidal ideation. He is reporting no homicidal ideation intent or plan. He is endorsing no auditory or visual hallucinations today no specific delusions. He does not appear hypomanic or manic. Plan: The patient will continue on his current medication however we will titrate the Geodon to 60 mg twice daily. We will monitor him for safety and encourage full participation in the milieu. He requires continued psychiatric hospitalization. He may be appropriate for discharge towards the middle or end of this week if sufficiently stabilized.
[2018-10-21] MEDS: ZIPRASIDONE 60 MG CAP PO SCH (17:42)
[2018-10-21] MEDS: ALPRAZolam 1 MG TAB PO PRN (17:43)
[2018-10-22] MEDS: buPROPion XL 150 MG TAB.ER.24H PO SCH (08:19)
[2018-10-22] MEDS: PROPRANOLOL 40 MG TAB PO SCH ×3 (08:20→21:05)
[2018-10-22] MEDS: DULoxetine HCL 60 MG CAPSULE.DR PO SCH (08:20)
[2018-10-22] MEDS: PANTOPRAZOLE 40 MG TABLET PO SCH (08:20)
[2018-10-22] MEDS: HYDROCHLOROTHIAZIDE 25 MG TAB PO SCH (08:21)
[2018-10-22] MEDS: ZIPRASIDONE 60 MG CAP PO SCH ×2 (08:21→18:23)
[2018-10-22] MEDS: ACETAMINOPHEN TAB 325 MG TAB PO PRN ×4 (08:22→21:08)
[2018-10-22] MEDS: ALPRAZolam 1 MG TAB PO PRN ×2 (08:22→21:08)
--- NOTE | 2018-10-22 09:04 | P.PN ---
Progress Note - Text Interval history: The patient is found in his room he follows me to an interview room. He indicates he still has fleeting suicidal thoughts but he feels he wouldn't act on them. He feels more hurt and angry that his ex- has "abandon him" for the last month. We discussed the need for him to develop other supports in the community so that he doesn't rely on one-to-one person for support. He is reminded that this strategy has failed several times in the past leaving him in crisis. We reviewed his psychotropic medications as questions were answered. He indicates he attended some groups yesterday. Mental status exam: The patient is an overweight male hygiene is fair grooming fair he is dressed in his own clothing. He is pleasant and cooperative. He ambulates down the hallway without any ataxia. He seated in his chair calmly. He indicates his mood is improving. He chronically endorses suicidal thoughts. He indicates they are fleeting and he would not act on them at this point. He reports no homicidal ideation. He is reporting no auditory or visual hallucinations or any specific delusions. He demonstrates no verbal or physical aggressiveness he demonstrates no involuntary repetitive movements. Insight and judgment improving. Plan: The patient will continue on his current psychotropic medication. He is beginning to clinically stabilize. Consider discharging him in the next 1-2 days depending on his progress. He is encouraged to continue participating in groups. Vital signs reviewed.
[2018-10-23 06:34] VITALS: TEMP 97.5
[2018-10-23] MEDS: DULoxetine HCL 60 MG CAPSULE.DR PO SCH (07:46)
[2018-10-23] MEDS: ZIPRASIDONE 60 MG CAP PO SCH (07:46)
[2018-10-23] MEDS: PROPRANOLOL 40 MG TAB PO SCH (07:46)
[2018-10-23] MEDS: buPROPion XL 150 MG TAB.ER.24H PO SCH (07:46)
[2018-10-23] MEDS: PANTOPRAZOLE 40 MG TABLET PO SCH (07:46)
[2018-10-23] MEDS: ALPRAZolam 1 MG TAB PO PRN (07:46)
[2018-10-23] MEDS: HYDROCHLOROTHIAZIDE 25 MG TAB PO SCH (07:47)
[2018-10-23 07:53] VITALS: BP 137/80; PULSE 86; RESP 18
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
[2018-10-23] MEDS: ACETAMINOPHEN TAB 325 MG TAB PO PRN (11:12)
== END 2018-10-23 12:49 | disposition home or self-care (01) | DRG 885 ==
LOC: EC 15:30 → 3MHU 16:37
PROVIDERS: ADMIT Psychiatry & Neurology Psychiatry; ATTEND Psychiatry & Neurology Psychiatry
DX: F33.3 Major depressive disorder, recurrent, severe with psychotic symptoms (principal); R45.851 Suicidal ideations; Z68.41 Body mass index [BMI] 40.0-44.9, adult; E66.01 Morbid (severe) obesity due to excess calories; F41.1 Generalized anxiety disorder; F90.0 Attention-deficit hyperactivity disorder, predominantly inattentive type; G89.29 Other chronic pain; M25.561 Pain in right knee; M25.562 Pain in left knee; J45.909 Unspecified asthma, uncomplicated; R60.0 Localized edema; F17.210 Nicotine dependence, cigarettes, uncomplicated; Z71.6 Tobacco abuse counseling; Z79.899 Other long term (current) drug therapy
CPT/HCPCS: 80053; 80061; 80306; 82075; 83036; 84443; 85025; 99285

== ENCOUNTER → 2019-08-23 | Outpatient (CLI) | payer MEDICARE ==
--- NOTE | 2019-08-23 16:31 | CT ---
EXAMINATION TYPE: CT chest w con DATE OF EXAM: 08/23/2019 COMPARISON: Chest x-ray dated 12/20/[address] chest dated 11/30/2017 HISTORY: Dyspnea x1 month. Pt also stated his CXR at [facility] showed a mass CT DLP: 549 mGycm. Automated Exposure Control for Dose Reduction was Utilized. TECHNIQUE: CT scan of the thorax is performed following with IV Contrast, patient injected with 100 mL of Isovue 300. FINDINGS: LUNGS: There is bandlike scarring in the right middle lobe and lingula. The lungs are grossly clear, there is no concerning parenchymal mass or nodule identified. There is no pleural effusion or pneum othorax seen. The tracheobronchial tree is patent. MEDIASTINUM: There are no greater than 1 cm hilar or mediastinal lymph nodes. No pericardial effusi on is seen. OTHER: Mild multilevel degenerative disc disease of the thoracic spine. Heterogeneity of the thyroid gland is seen with complex 2.3 cm right thyroid nodule and subcentimeter left thyroid nodule. This wa s not included on the mquaz-ke-erco on the prior exam. Partially visualized bilateral probable gyneco mastia. Incidentally noted circumaortic left renal vein. Hepatic parenchyma is diffusely hypoattenuated in comparison to that of the spleen, most commonly see n in hepatic steatosis. This finding limits evaluation for hepatic masses. No gross evidence of hepat ic mass is seen. No intrahepatic biliary ductal dilatation. Nearly hydropic size of the gallbladder i s a gallbladder measures 9 point of an centimeters in longitudinal dimension. IMPRESSION: 1. Complex 2.3 cm right thyroid nodule for which further characterization with thyroid ultrasound is recommended. 2. No pulmonary mass nor suspicious pulmonary nodule. Linear areas of pleural-parenchymal scarring ar e seen. No evidence of pneumonia or interstitial lung disease. 3. Incidentally noted hepatic steatosis and nearly hydropic size of the gallbladder. Biliary dyskines ia is possible and could be further evaluated with nuclear medicine HIDA scan with CCK. 4. Incidentally noted probable bilateral gynecomastia although only partially visualized. If there ar e symptoms or palpable abnormality diagnostic mammogram of the recommended.
== END | disposition home or self-care (01) ==
LOC: RADCTMAIN 07:10
PROVIDERS: ATTEND Family Medicine
DX: E04.1 Nontoxic single thyroid nodule (principal); R06.00 Dyspnea, unspecified
CPT/HCPCS: 71260; Q9967

== ENCOUNTER → 2019-09-09 | Outpatient (CLI) | payer MEDICARE ==
--- NOTE | 2019-09-09 13:01 | US ---
EXAMINATION TYPE: US thyroid st tissue head/neck DATE OF EXAM: 09/09/2019 COMPARISON: CT chest August 23, 2019 CLINICAL HISTORY: E04.1 thyroid nodule. Thyroid nodule GLAND SIZE: Right Lobe: 5.6 x 2.5 x 2.3 cm Overall Parenchyma: homogenous Left Lobe: 4.3 x 1.8 x 1.9 cm Overall Parenchyma: homogeneous Isthmus Thickness: 0.5 cm NODULES RIGHT: # of nodules measured on right: 1 1. 3.2 X 2.4 x 2.9 cm hypoechoic solid nodule at the mid/lower pole with well-defined margins; . T his nodule is wider than tall and shows intranodular vascularity. LEFT: # of nodules measured on left: 1 1. 1.8 X 1.1 x 1.4 cm isoechoic solid nodule at the lateral mid pole with well-defined margins; . This nodule is wider than tall and shows intranodular vascularity. ISTHMUS: # of nodules measured in the isthmus: 0 Homogeneous normal thyroid with asymmetric right thyroid enlargement due to dominant lower pole right thyroid nodule. There are smaller isoechoic 1.8 cm nodule mid lower pole level left thyroid. IMPRESSION: As above. TR4 lesion moderately suspicious right thyroid lobe, FNA advised. TR 3 lesion m id to lower pole left thyroid lobe mildly suspicious, ultrasound follow-up advised
--- NOTE | 2019-09-09 15:50 | NM ---
EXAMINATION TYPE: NM hepatobiliary w EF DATE OF EXAM: 09/09/2019 COMPARISON: NONE HISTORY: Biliary dyskinesia or ordered. Diminished appetite and epigastric pain with nausea per patie nt. TECHNIQUE: After the intravenous administration of 5.3 mCi Tc 99m Mebrofenin hepatobiliary scintigrap hy is performed. Immediate images post injection. FINDINGS: There is satisfactory initial accumulation of tracer by the liver. The gallbladder is visualized wit hin 15 minutes. The small bowel activity is noted within 25 minutes. At one hour 8 ounces of oral e nsure plus is given to mimic CCK and gallbladder ejection fraction is calculated at 81 %, not diminis hed from the normal range. Therefore there is no scintigraphic evidence of cystic or common bile merritt t obstruction to suggest acute cholecystitis. IMPRESSION: Ejection fraction is 81%, some consider this abnormal or a hyperkinetic response.
== END | disposition home or self-care (01) ==
LOC: RADUSWWP 11:49
PROVIDERS: ATTEND Physician Assistant
DX: E04.1 Nontoxic single thyroid nodule (principal); K82.8 Other specified diseases of gallbladder
CPT/HCPCS: 76536; 78226; A9537

== ENCOUNTER → 2019-10-29 | Outpatient (CLI) | payer MEDICARE ==
--- NOTE | 2019-10-29 07:51 | US ---
EXAMINATION TYPE: US gallbladder DATE OF EXAM: 10/29/2019 COMPARISON: NONE CLINICAL HISTORY: K80.20 GALLSTONES. Pain and nausea. EXAM MEASUREMENTS: Liver Length: 16.1 cm Gallbladder Wall: .3 cm CBD: .6 cm Right Kidney: 11.6 x 5.4 x 5.4 cm Pancreas: wnl Liver: Increased attenuation Gallbladder: wnl Evidence for sonographic Forbes's sign: No CBD: wnl Right Kidney: wnl IMPRESSION: 1. Liver increased in attenuation correlate for hepatic steatosis versus hepatocellular disease..
== END | disposition home or self-care (01) ==
LOC: RADUSWWP 07:21
PROVIDERS: ATTEND Surgery Plastic and Reconstructive Surgery
DX: K80.20 Calculus of gallbladder without cholecystitis without obstruction (principal); R93.2 Abnormal findings on diagnostic imaging of liver and biliary tract
CPT/HCPCS: 76705

== ENCOUNTER 2019-11-06 09:03 | Day surgery (SDC) | payer MEDICARE ==
[2019-11-06 09:44] VITALS: RESP 18; TEMP 97.6
[2019-11-06 11:46] VITALS: BP 121/70; PULSE 58
--- NOTE | 2019-11-06 13:31 | US ---
EXAMINATION TYPE: US FNA thyroid each add lesion, US FNA thyroid first lesion DATE OF EXAM: 11/06/2019 COMPARISON: Ultrasound 09/09/2019 HISTORY: Thyroid nodules. Maximal barrier technique was utilized. Hand hygiene obtained with soap and water. After informed co nsent, skin overlying the left lobe thyroid nodule on was localized with ultrasound and the overlying skin prepped and draped. Ultrasound was utilized using sterile technique. Lidocaine was used for loc al anesthesia. Five passes with a 25-gauge needle were made into the left lobe thyroid nodule and as pirated specimen was submitted to cytology. Using similar technique the right lobe thyroid nodule wa s sampled, 5 passes with a 25-gauge needle and specimen submitted to cytology. Following the procedur e hemostasis achieved. No immediate complication. The patient discharged in stable condition. IMPRESSION: STATUS POST ULTRASOUND GUIDED FINE NEEDLE ASPIRATION OF BILATERAL THYROID NODULES, PATHOL OGY IS PENDING. THIS PROCEDURE WAS PERFORMED BY THE UNDERSIGNED.
== END 2019-11-06 11:35 | disposition home or self-care (01) ==
LOC: RADPROMAIN 09:03
PROVIDERS: ATTEND Surgery Plastic and Reconstructive Surgery
DX: E04.2 Nontoxic multinodular goiter (principal)
CPT/HCPCS: 10005; 10006; 88173; 88305

== ENCOUNTER 2020-02-25 13:24 | Inpatient (IN) | payer MEDICARE ==
--- NOTE | 2020-02-25 14:12 | ED ---
Psych HPI - General Source: patient Mode of arrival: ambulatory <Evens King - Last Filed: 02/25/20 16:16> <Eben Cervantes - Last Filed: 02/25/20 18:09> - General Chief Complaint: Psychiatric Symptoms Stated Complaint: Mental Health Time Seen by Provider: 02/25/20 13:54 - History of Present Illness Initial Comments: Patient is a 55-year-old male with history of suicidal ideations, depression, anxiety presenting to emergency Department with a chief complaint of suicidal ideation. Patient states last 4 months have caused him to have increased depression. Patient reports that he "wants to end my life". Patient reports suicidal ideation with plans of using medications to overdose or stab himself to . Patient sees Dr. Penny. She also sees a counselor whom he spoke with today. The counselor advised him to come to the emergency department for psychiatric evaluation. (Evens King) - Related Data Home Medications Medication Instructions Recorded Confirmed ALPRAZolam [Xanax] 1 mg PO BID@0000,0800 08/15/16 02/25/20 Propranolol [Inderal] 40 mg PO TID@0400,1000,1600 01/19/17 02/25/20 Acetaminophen Tab [Tylenol Tab] 1,000 mg PO Q4-6H PRN 02/25/20 02/25/20 Desvenlafaxine [Pristiq ER] 100 mg PO HS@0000 02/25/20 02/25/20 Loratadine [Claritin] 10 mg PO DAILY@0800 02/25/20 02/25/20 Ondansetron HCl [Zofran] 8 mg PO Q8H PRN 02/25/20 02/25/20 Ziprasidone [Geodon] 60 mg PO PC-BID@0800,2000 02/25/20 02/25/20 buPROPion HCL [Wellbutrin XL] 300 mg PO HS@0000 02/25/20 02/25/20 Allergies Allergy/AdvReac Type Severity Reaction Status Date / Time No Known Allergies Allergy Verified 02/25/20 16:37 Review of Systems ROS Other: All systems not noted in ROS Statement are negative. <Evens King - Last Filed: 02/25/20 16:16> ROS Other: All systems not noted in ROS Statement are negative. <Eben Cervantes - Last Filed: 02/25/20 18:09> ROS Statement: Those systems with pertinent positive or pertinent negative responses have been documented in the HPI. Past Medical History Past Medical History: Asthma, Thyroid Disorder Additional Past Medical History / Comment(s): respiratory infection History of Any Multi-Drug Resistant Organisms: None Reported Past Surgical History: Tonsillectomy Past Anesthesia/Blood Transfusion Reactions: No Reported Reaction Past Psychological History: Depression Smoking Status: Current every day smoker Past Alcohol Use History: Abuse Past Drug Use History: None Reported - Past Family History Mother Family Medical History: COPD <Evens King - Last Filed: 02/25/20 16:16> General Exam Limitations: no limitations General appearance: alert, in no apparent distress, obese Head exam: Present: atraumatic, normocephalic, normal inspection Eye exam: Present: normal appearance, PERRL, EOMI Pupils: Present: normal accommodation ENT exam: Present: normal exam Neck exam: Present: normal inspection, full ROM Respiratory exam: Present: normal lung sounds bilaterally Cardiovascular Exam: Present: regular rate, normal rhythm, normal heart sounds Extremities exam: Present: normal inspection, full ROM Back exam: Present: normal inspection, full ROM Neurological exam: Present: alert, oriented X3 Psychiatric exam: Present: normal affect, normal mood Skin exam: Present: warm, dry, intact, normal color <Evens King - Last Filed: 02/25/20 16:16> Course Vital Signs 02/25/20 13:38 Temperature 98.2 F Pulse Rate 74 Respiratory 18 Rate Blood Pressure 118/78 O2 Sat by Pulse 95 Oximetry Medical Decision Making <Evens King - Last Filed: 02/25/20 16:16> - Medical Decision Making Patient 55-year-old male with history depression exudates presenting to emergency Department for chief complaint of suicidal ideation. EPS evaluation pending. At this time patient care will be transferred to . (Evens King) - Lab Data Lab Results 02/25/20 Range/Units 15:00 Urine Opiates Screen Not Detected (NotDetected) Ur Oxycodone Screen Not Detected (NotDetected) Urine Methadone Screen Not Detected (NotDetected) Ur Propoxyphene Screen Not Detected (NotDetected) Ur Barbiturates Screen Not Detected (NotDetected) U Tricyclic Antidepress Not Detected (NotDetected) Ur Phencyclidine Scrn Not Detected (NotDetected) Ur Amphetamines Screen Not Detected (NotDetected) U Methamphetamines Scrn Not Detected (NotDetected) U Benzodiazepines Scrn Detected H (NotDetected) Urine Cocaine Screen Not Detected (NotDetected) U Marijuana (THC) Screen Not Detected (NotDetected) Disposition <Evens King - Last Filed: 02/25/20 16:16> Time of Disposition: 18:09 <Eben Cervantes - Last Filed: 02/25/20 18:09> Clinical Impression: Depression, Suicidal ideation Disposition: ADMITTED IP TO THIS HOSP Referrals: Rufino Uriostegui MD [Primary Care Provider] - 1-2 days
[2020-02-25 15:22] LABS: Amphetamine Screen,Urine Not Detected (NotDetected); Barbiturate Screen,Urine Not Detected (NotDetected); Benzodiazepines Screen,Urine Detected (NotDetected); Cocaine Screen,Urine Not Detected (NotDetected); Methadone Screen, Urine Not Detected (NotDetected); Opiate Screen,Urine Not Detected (NotDetected); Oxycodone Screen, Urine Not Detected (NotDetected); Phencyclidine Screen,Urine Not Detected (NotDetected); Tricyclic Antidepressant,Urine Not Detected (NotDetected); Urn Cannabinoid Scrn Not Detected (NotDetected)
[2020-02-25] MEDS ORDERED: ACETAMINOPHEN TAB 500 MG TAB PO STA (18:03)
[2020-02-25] MEDS ORDERED: ONDANSETRON 4 MG TAB PO PRN (18:16)
[2020-02-25] MEDS ORDERED: ACETAMINOPHEN TAB 325 MG TAB PO PRN (18:18)
[2020-02-25] MEDS ORDERED: MAGNESIUM HYDROXIDE 2,400 MG/10 ML CUP PO PRN (18:18)
[2020-02-25] MEDS ORDERED: MAG HYDROX/AL HYDROX/SIMETH 30 ML CUP PO PRN (18:18)
[2020-02-25] MEDS ORDERED: ZIPRASIDONE 20 MG VIAL IM PRN (18:18)
[2020-02-25] MEDS: PROPRANOLOL 40 MG TAB PO SCH (20:12)
[2020-02-25] MEDS: ZIPRASIDONE 60 MG CAP PO SCH (20:12)
[2020-02-25] MEDS: buPROPion XL 300 MG TAB.ER.24H PO SCH (20:12)
[2020-02-25] MEDS: ALPRAZolam 1 MG TAB PO PRN (20:13)
[2020-02-25] MEDS: DESVENLAFAXINE SUCCINATE 50 MG TAB.ER.24H PO SCH (20:13)
[2020-02-25] MEDS ORDERED: DESVENLAFAXINE 100 MG PO SCH (21:00)
[2020-02-26] MEDS: ACETAMINOPHEN TAB 500 MG TAB PO PRN ×4 (00:44→21:55)
[2020-02-26] MEDS: PROPRANOLOL 40 MG TAB PO SCH ×3 (04:06→16:27)
[2020-02-26 06:56] LABS: Basophils # (A) 0.1 k/uL (0-0.2); Basophils % (A) 1 %; Eosinophils # (A) 0.7 k/uL (0-0.7); Eosinophils % (A) 8 %; HCT 42.1 % (39.0-53.0); HGB 13.5 gm/dL (13.0-17.5); Hypochromasia Slight; Lymphocytes # (A) 2.8 k/uL (1.0-4.8); Lymphocytes % (A) 32 %; MCH 30.5 pg (25.0-35.0); MCHC 32.1 g/dL (31.0-37.0); Monocytes # (A) 0.7 k/uL (0-1.0); Monocytes % (A) 8 %; Neutrophils # (A) 4.4 k/uL (1.3-7.7); Neutrophils % (A) 50 %; Platelet Count 282 k/uL (150-450); RBC 4.43 m/uL (4.30-5.90); RDW 13.8 % (11.5-15.5); WBC 8.8 k/uL (3.8-10.6)
[2020-02-26 07:05] LABS: ALT 23 U/L (4-49); AST 20 U/L (17-59); African American GFR (CKD) >90 (>60 ml/min/1.73 sqM); Albumin 3.8 g/dL (3.5-5.0); Alkaline Phosphatase 49 U/L (38-126); Anion Gap 8 mmol/L; Blood Urea Nitrogen 14 mg/dL (9-20); Calcium 9.1 mg/dL (8.4-10.2); Carbon Dioxide 26 mmol/L (22-30); Chloride 106 mmol/L (98-107); Cholesterol 188 mg/dL (<200); Glucose 86 mg/dL (74-99); HDL Cholesterol 55 mg/dL (40-60); Non-African American GFR(CKD) >90 (>60 ml/min/1.73 sqM); Potassium 4.5 mmol/L (3.5-5.1); Sodium 140 mmol/L (137-145); Total Bilirubin 0.2 mg/dL (0.2-1.3); Total Protein 6.8 g/dL (6.3-8.2)
[2020-02-26 07:19] LABS: LDL Cholesterol,Calculated 102 mg/dL (0-99); Triglycerides 157 mg/dL (<150)
[2020-02-26] MEDS: LORATADINE 10 MG TAB PO SCH (09:19)
[2020-02-26] MEDS: ALPRAZolam 1 MG TAB PO PRN ×2 (09:19→23:49)
[2020-02-26] MEDS: ZIPRASIDONE 60 MG CAP PO SCH (09:19)
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
--- NOTE | 2020-02-26 11:33 | P.CONS ---
History of Present Illness - History of Present Illness This is a pleasant 55 years old male with past medical history of hypertension and chronic sinusitis, anxiety and depression. Presents because of suicidal ideation and he was admitted to the mental health unit for the treatment of the same related to his depressive symptoms. Medical consult was requested for medical management. Patient denies chest pain, no dyspnea, no change in urine or bowel habits, no nausea vomiting, no abdominal pain, no fever. Patient denies smoking or illicit drugs. However patient is complaining of from his osteoarthritis pain in his both knees and low back, patient states he takes Tylenol and Naprosyn at home on a regular basis for a while now. Vitals stable, blood pressure 111/. Patient is afebrile Labs including CBC and BMP and liver enzymes were unremarkable, triglycerides 157, LDL is 188, urinary drug screen is positive for benzodiazepines Review of Systems CONSTITUTIONAL: No fever, no malaise, no fatigue. HEENT: No recent visual problems or hearing problems. Denied any sore throat. CARDIOVASCULAR: No orthopnea, PND, no palpitations, no syncope. PULMONARY: No shortness of breath, no cough, no hemoptysis. GASTROINTESTINAL: No diarrhea, no nausea, no vomiting, no abdominal pain. Normoactive bowel sounds. NEUROLOGICAL: No headaches, no weakness, no numbness. HEMATOLOGICAL: Denies any bleeding or petechiae. GENITOURINARY: Denies any burning micturition, frequency, or urgency. MUSCULOSKELETAL/RHEUMATOLOGICAL: Denies any joint pain, swelling, or any muscle pain. ENDOCRINE: Denies any polyuria or polydipsia. 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 History of Any Multi-Drug Resistant Organisms: None Reported Past Surgical History: Tonsillectomy Additional Past Surgical History / Comment(s): biopsys of tumors on thyroid and spot in his lung. Past Anesthesia/Blood Transfusion Reactions: No Reported Reaction Past Psychological History: Anxiety, Depression, Panic Disorder Additional Psychological History / Comment(s): been on disability for 8-10 years. Smoking Status: Former smoker Past Alcohol Use History: Abuse Past Drug Use History: None Reported - Past Family History Mother Family Medical History: COPD Medications and Allergies Home Medications Medication Instructions Recorded Confirmed Type ALPRAZolam [Xanax] 1 mg PO BID@0000,0800 08/15/16 02/25/20 History Propranolol [Inderal] 40 mg PO TID@0400,1000,1600 01/19/17 02/25/20 History Acetaminophen Tab [Tylenol Tab] 1,000 mg PO Q4-6H PRN 02/25/20 02/25/20 History Desvenlafaxine [Pristiq ER] 100 mg PO HS@0000 02/25/20 02/25/20 History Loratadine [Claritin] 10 mg PO DAILY@0800 02/25/20 02/25/20 History Ondansetron HCl [Zofran] 8 mg PO Q8H PRN 02/25/20 02/25/20 History Ziprasidone [Geodon] 60 mg PO PC-BID@0800,199902/25/20 02/25/20 History buPROPion HCL [Wellbutrin XL] 300 mg PO HS@0000 02/25/20 02/25/20 History Allergies Allergy/AdvReac Type Severity Reaction Status Date / Time No Known Allergies Allergy Verified 02/25/20 18:38 Physical Exam Vitals: Vital Signs Temp Pulse Pulse Resp BP BP Pulse Ox 02/26/20 09:16 84 111/71 02/26/20 04:12 74 100/62 02/26/20 00:47 97.9 F 68 18 124/71 02/25/20 20:15 97.5 F L 65 138/77 02/25/20 18:39 96.8 F L 56 L 20 126/76 02/25/20 13:38 98.2 F 74 18 118/78 95 Intake and Output 02/25/20 02/26/20 02/26/20 22:59 06:59 14:59 Other: Weight 122.47 kg GENERAL: The patient is alert and oriented x3, not in any acute distress. Well developed, well nourished. HEENT: Pupils are round and equally reacting to light. EOMI. No scleral icterus. No conjunctival pallor. Normocephalic, atraumatic. No pharyngeal erythema. No thyromegaly. CARDIOVASCULAR: S1 and S2 present. No murmurs, rubs, or gallops. PULMONARY: Chest is clear to auscultation, no wheezing or crackles. ABDOMEN: Soft, nontender, nondistended, normoactive bowel sounds. No palpable organomegaly. MUSCULOSKELETAL: No joint swelling or deformity. EXTREMITIES: No cyanosis, clubbing, or pedal edema. NEUROLOGICAL: Gross neurological examination did not reveal any focal deficits. SKIN: No rashes. No petechiae Results CBC & Chem 7: 02/26/20 06:27 02/26/20 06:27 Labs: Abnormal Lab Results - Last 24 Hours (Table) 02/25/20 02/26/20 Range/Units 15:00 06:27 Triglycerides 157 H (<150) mg/dL LDL Cholesterol, Calc 102 H (0-99) mg/dL U Benzodiazepines Scrn Detected H (NotDetected) Assessment and Plan Assessment: -Depression: suicidal ideation and other psychiatric illnesses, management as per sec primary team -Osteoarthritis and chronic pain of both knees and low back. Patient instructed to limit the amount of NSAIDs use, we'll going to have a 3 days of small dose of not proceeding (he was using higher doses every 6 hours for a while) , risks including but not limited to GI ulceration and kidney injury are explained to him, he verbalized understanding and acceptance, as an alternative he agrees with Tylenol, lidocaine patch and capsacin cream -Hypertension: continue with propranolol -Chronic sinusitis: Continue with Claritin DVT prophylaxis: Fairly mobilization GI prophylaxis: Protonix We recommend patient follow up with his primary care doctor Dr. Uriostegui in 1 week, patient was instructed with the same Thank you for consulting us, we will see the patient on as needed basis. Please feel free to contact us for any further question or clarification.
[2020-02-26] MEDS: PANTOPRAZOLE 40 MG TABLET PO SCH (12:44)
[2020-02-26] MEDS: LIDOCAINE 5% PATCH TOPICAL SCH (12:44)
[2020-02-26] MEDS: NAPROXEN 250 MG TAB PO PRN ×2 (12:45→21:55)
[2020-02-26 14:15] LABS: Hemoglobin A1C 5.6 % (4.0-6.0)
[2020-02-26] MEDS: CAPSAICIN 0.025% CREAM 60 GM TUBE TOPICAL SCH ×2 (16:27→21:52)
[2020-02-26] MEDS: ZIPRASIDONE 80 MG CAP PO SCH (21:54)
[2020-02-26] MEDS: DESVENLAFAXINE SUCCINATE 50 MG TAB.ER.24H PO SCH (21:54)
[2020-02-26] MEDS: buPROPion XL 300 MG TAB.ER.24H PO SCH (21:54)
--- NOTE | 2020-02-27 01:46 | P.MHFACE ---
Face to Face Restrain/Seclus - Evaluation Patient's Immediate Situation: Endangers self safety, Endangers staff safety, V iolent behavior Patient's Reaction to the Intervention: Appropriate, Calm, Hostile Patient's Medical & Behavioral Condition: Awake, Alert Need to Continue or Terminate Restraint or Seclusion: Continue Need to Continue or Terminate Restraint/Seclusion - Comment: Informed by the MHU RN at 1:30 that patient was placed in restraints @ 1:08. Patient seen on the MHU at 1:35. The patient had reportedly ripped out the chair of his toilet seat and had slammed it on the bathroom counter, along with making multiple verbal threats to the staff. The patient continues to be hostile while in restraints though alert and awake. Continue with restraints for now with plan to discontinue as soon as patient is less hostile. 2+ shamir radial and dorsalis pedis pulses.
[2020-02-27] MEDS: PROPRANOLOL 40 MG TAB PO SCH ×3 (06:28→15:53)
[2020-02-27] MEDS: PANTOPRAZOLE 40 MG TABLET PO SCH (09:38)
[2020-02-27] MEDS: CAPSAICIN 0.025% CREAM 60 GM TUBE TOPICAL SCH ×3 (09:38→21:08)
[2020-02-27] MEDS: LORATADINE 10 MG TAB PO SCH (09:38)
[2020-02-27] MEDS: ZIPRASIDONE 80 MG CAP PO SCH ×2 (09:39→20:32)
[2020-02-27] MEDS: LIDOCAINE 5% PATCH TOPICAL SCH (09:39)
[2020-02-27] MEDS: ACETAMINOPHEN TAB 500 MG TAB PO PRN ×3 (09:40→20:34)
[2020-02-27] MEDS: ALPRAZolam 1 MG TAB PO PRN (09:40)
[2020-02-27] MEDS: NAPROXEN 250 MG TAB PO PRN ×2 (09:41→20:33)
--- NOTE | 2020-02-27 11:06 | P.PN ---
Progress Note - Text Interval history: The patient is found in his room he follows me to an interview room. I was notified very early this morning that the patient had become acutely agitated. Reportedly he tore off the toilet seat and slammed it on the front end loader operator and made a statement that it could be "somebody's head". Subsequently he was given injectable medication and was put in restraints. He indicates that he was angered that his medication dosing wasn't how he wanted it. He states that he requested a Xanax and felt that they were not attending to it quickly enough. He states he became angry and lost control. We processed this at length. The patient does not have a history of violence on the mental health unit across numerous hospitalizations. We discussed that this behavior is not appropriate and he has other avenues for appropriately addressing his concerns. He was able to sleep the rest of the morning appetite stable. He has been attending some groups. We reviewed his psychotropic medications as questions were answered. Mental status exam: The patient is an obese male appearing his stated age. Hygiene and grooming impaired eye contact is appropriate speech is fluent spontaneous nonpressured he demonstrates no tangential thinking loose associations or flight of ideas. He describes a depressed mood with suicidal thoughts feelings of anger and anxiety. He reports no thoughts of violence towards others. He is endorsing no auditory or visual hallucinations he is endorsing no specific delusions. Affect is constricted twice he demonstrated some exaggerated laughter which appeared disingenuous. He demonstrated no verbal or physical aggressiveness he demonstrates no involuntary movements insight and judgment impaired. He remains fully oriented to person place and date. Plan: The patient will continue on his current psychotropic medications I will schedule 4 his Geodon and Xanax that we agreed upon. He is encouraged to participate fully in groups we will monitor him for safety. Vital signs reviewed. He requires continued psychiatric hospitalization.
[2020-02-27] MEDS: ALPRAZolam 1 MG TAB PO SCH (20:30)
[2020-02-27] MEDS: DESVENLAFAXINE SUCCINATE 50 MG TAB.ER.24H PO SCH (20:31)
[2020-02-27] MEDS: buPROPion XL 300 MG TAB.ER.24H PO SCH (20:32)
[2020-02-28] MEDS: PROPRANOLOL 40 MG TAB PO SCH ×3 (05:11→15:34)
[2020-02-28] MEDS: PANTOPRAZOLE 40 MG TABLET PO SCH (09:13)
[2020-02-28] MEDS: LORATADINE 10 MG TAB PO SCH (09:13)
[2020-02-28] MEDS: CAPSAICIN 0.025% CREAM 60 GM TUBE TOPICAL SCH ×3 (09:14→21:22)
[2020-02-28] MEDS: ZIPRASIDONE 80 MG CAP PO SCH ×2 (09:14→18:14)
[2020-02-28] MEDS: ALPRAZolam 1 MG TAB PO SCH ×2 (09:14→19:59)
[2020-02-28] MEDS: LIDOCAINE 5% PATCH TOPICAL SCH (09:14)
[2020-02-28] MEDS: ACETAMINOPHEN TAB 500 MG TAB PO PRN ×3 (09:15→21:24)
[2020-02-28] MEDS: NAPROXEN 250 MG TAB PO PRN ×2 (09:15→18:13)
--- NOTE | 2020-02-28 15:33 | P.PN ---
Progress Note - Text Progress Note Date: 02/28/20 Clinical Problems: Major depressive disorder recurrent severe without psychosis, generalized anxiety disorder, ADHD inattentive type. Interim history: Her primary the medical record and interviewed the patient. He described his mood as improving and denied that he is currently experiencing suicidal thoughts. It she related changes mood to the increase in Geodon and Xanax. He was quite knowledgeable of psychotropic medication and readily discussed his treatment history and his current medications. He is placed in seclusion restraints yesterday at approximately 1:30. Nursing reports that he became increasingly distressed when he did not receive his dose of Xanax. He began making generalized threats towards staff and "lunged in staff direction" when the nurses attempted to administer an IM injection. He was held down by 3 security officers while nursing called a "Mr. perez" code. He attributed to decline in his mood and the reason for his hospitalization to his living environment. He has been living at [facility] for the last 4 years. He notices that recently the quantitative manager has been around more people with criminal or substance use backgrounds lives in a room and board. This January, one of the residents broke into his room and stool which she described as $3000 worth of b [place]. The person was eventually arrested and is awaiting trial. Mental status exam: He presented as moderately obese 55-year-old male with long hair that is pulled back and time. He made eye contact and attended to the interview. He had no prominent physical abnormalities. He had a blunted facial expression. He showed psychomotor retardation but no abnormal movements. Her speech was spontaneous with normal rate, rhythm and volume. His affect was depressed but reactive. She denied suicidal ideation or wishes. He expressed feelings of hopelessness and helplessness. He ruminated about his living situation. He did not express ideas reference, paranoid ideation or delusions. His thinking was abstract and associations were coherent and logical. He denied hallucinations did not appear to responding to internal stimuli. 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 His mood is improved and he has had no further episodes of behavioral dyscontrol. Plan: Continue inpatient treatment. Continue safety precautions. Continue current psychotropic medications as written including when necessary Geodon 20 mg twice a day for agitation or aggression.
[2020-02-28] MEDS: DESVENLAFAXINE SUCCINATE 50 MG TAB.ER.24H PO SCH (19:59)
[2020-02-28] MEDS: buPROPion XL 300 MG TAB.ER.24H PO SCH (19:59)
[2020-02-29] MEDS: PROPRANOLOL 40 MG TAB PO SCH ×3 (06:27→15:36)
[2020-02-29] MEDS: PANTOPRAZOLE 40 MG TABLET PO SCH (09:05)
[2020-02-29] MEDS: LIDOCAINE 5% PATCH TOPICAL SCH (09:06)
[2020-02-29] MEDS: ALPRAZolam 1 MG TAB PO SCH ×2 (09:06→21:12)
[2020-02-29] MEDS: LORATADINE 10 MG TAB PO SCH (09:06)
[2020-02-29] MEDS: CAPSAICIN 0.025% CREAM 60 GM TUBE TOPICAL SCH ×3 (09:06→23:39)
[2020-02-29] MEDS: ZIPRASIDONE 80 MG CAP PO SCH ×2 (09:06→18:36)
[2020-02-29] MEDS: NAPROXEN 250 MG TAB PO PRN (09:06)
[2020-02-29] MEDS: ACETAMINOPHEN TAB 500 MG TAB PO PRN ×3 (09:08→22:03)
--- NOTE | 2020-02-29 11:59 | P.PN ---
Progress Note - Text Progress Note Date: 02/29/20 Clinical Problems: Major depressive disorder recurrent severe without psychosis, generalized anxiety disorder, ADHD inattentive type. Interim history: I reviewed the medical record and interviewed the patient. He feels better than admission; "about 10% better." He apologized for his behavior that led to the episode of seclusion or restraint. He acknowledges that he lost control and broke the toilet seat. He perseverated about medications and medical treatment of his chronic psychiatric problems. He attributes admission to a decrease in the dose of Wellbutrin from 450 mg to 300 mg per day. I deferred his request to increase the Wellbutrin back to 450 mg per day. Mental status exam: He presented as a casually groomed moderately obese middle- aged male with long hair in a ponytail. He made eye contact and attended the interview. He had a blunted but bright facial expression. He showed slight psychomotor retardation but no abnormal movements. Her speech was spontaneous with decreased rhythm but normal volume and amount. His affect was blunted and slightly depressed. He denied current suicidal ideation and wishes. She denied homicidal ideation. He expressed feelings of helplessness but denied hopelessness or worthlessness. He did not express ideas reference, paranoid ideation or delusions. His thinking was abstract perseverative but organized and goal directed. She denied hallucinations did not appear to responding to internal stimuli Assessment: He is no longer suicidally preoccupied and reports a slight improvement in his mood. Plan: Continue inpatient treatment. Continue seat precautions. Continue current psychotropic medications. He will need to discuss with his attending psychiatrist and increase in his antidepressant medications. Encourage participation in therapeutic groups and activities. Evaluate clinical status response to treatment daily basis.
[2020-02-29] MEDS ORDERED: LOPERAMIDE 2 MG CAP PO STA (15:43)
[2020-02-29] MEDS: IBUPROFEN 400 MG TAB PO PRN (17:40)
[2020-02-29] MEDS: buPROPion XL 300 MG TAB.ER.24H PO SCH (20:50)
[2020-02-29] MEDS: DESVENLAFAXINE SUCCINATE 50 MG TAB.ER.24H PO SCH (20:50)
[2020-03-01] MEDS: PROPRANOLOL 40 MG TAB PO SCH ×3 (04:15→15:49)
[2020-03-01] MEDS: LORATADINE 10 MG TAB PO SCH (08:27)
[2020-03-01] MEDS: ALPRAZolam 1 MG TAB PO SCH ×2 (08:27→20:53)
[2020-03-01] MEDS: CAPSAICIN 0.025% CREAM 60 GM TUBE TOPICAL SCH ×3 (08:27→20:53)
[2020-03-01] MEDS: ZIPRASIDONE 80 MG CAP PO SCH ×2 (08:27→18:23)
[2020-03-01] MEDS: PANTOPRAZOLE 40 MG TABLET PO SCH (08:27)
[2020-03-01] MEDS: LIDOCAINE 5% PATCH TOPICAL SCH (08:27)
[2020-03-01] MEDS: ACETAMINOPHEN TAB 500 MG TAB PO PRN ×3 (08:28→20:54)
[2020-03-01] MEDS: IBUPROFEN 400 MG TAB PO PRN ×2 (08:29→15:50)
--- NOTE | 2020-03-01 09:42 | P.PN ---
Progress Note - Text Interval history: The patient's found in his room he follows me to an interview room. He reports that he feels 10-20% better. He is still experiencing some fluctuation in mood he does feel depressed at times. He states this morning he feels more depressed and hopeless. We reviewed his psychotropic medications his questions were answered. We discussed titrating the Wellbutrin further. He reports having some diarrhea and requests Imodium as needed. He has been attending about 50% in groups. He states he is able to sleep. Night as he feels safer than his own apartment. Staff reported he slept 7 hours. Appetite stable. No report of any behavioral disturbances over the weekend. Mental status exam: The patient is an obese male he is dressed in his own clothing hygiene grooming impaired his hair appears dirty. Eye contact is appropriate speech is fluent spontaneous nonpressured. He indicates having a depressed mood with continued hopelessness thoughts. He reports some suicidal ideation but feels he can keep himself safe in the hospital. He reports no homicidal ideation intent or plan. He reports no auditory or visual hallucinations no specific delusions. He demonstrates no verbal or physical aggressiveness no involuntary repetitive movements. Plan: We will increase the Wellbutrin XL to 450 mg continue his other psychotropic medications as written. He is encouraged to more fully participate in the milieu. Vital signs reviewed. He requires continued psychiatric hospitalization for depression and suicidal ideation. We will continue to monitor him for safety.
[2020-03-01] MEDS: LOPERAMIDE 2 MG CAP PO PRN ×3 (12:31→20:54)
[2020-03-01] MEDS: DESVENLAFAXINE SUCCINATE 50 MG TAB.ER.24H PO SCH (20:53)
[2020-03-01] MEDS: buPROPion XL 150 MG TAB.ER.24H PO SCH (20:53)
[2020-03-02] MEDS: PROPRANOLOL 40 MG TAB PO SCH ×3 (04:10→16:23)
[2020-03-02] MEDS: LIDOCAINE 5% PATCH TOPICAL SCH (08:08)
[2020-03-02] MEDS: ZIPRASIDONE 80 MG CAP PO SCH ×2 (08:08→18:25)
[2020-03-02] MEDS: LORATADINE 10 MG TAB PO SCH (08:08)
[2020-03-02] MEDS: PANTOPRAZOLE 40 MG TABLET PO SCH (08:08)
[2020-03-02] MEDS: ALPRAZolam 1 MG TAB PO SCH ×2 (08:08→21:18)
[2020-03-02] MEDS: CAPSAICIN 0.025% CREAM 60 GM TUBE TOPICAL SCH ×3 (08:08→21:22)
[2020-03-02] MEDS: IBUPROFEN 400 MG TAB PO PRN (08:29)
[2020-03-02] MEDS: LOPERAMIDE 2 MG CAP PO PRN ×3 (08:30→21:24)
[2020-03-02] MEDS: ACETAMINOPHEN TAB 500 MG TAB PO PRN ×3 (08:30→22:14)
--- NOTE | 2020-03-02 09:48 | P.PN ---
Progress Note - Text Interval history: The patient is found in his room he follows me to an interview room. He indicates his mood is still depressed he still having suicidal thoughts. He states "I'm not safe to go home" he has been selectively attending groups. He has been eating meals. Staff reports he slept 6 hours last evening. He still has not bathed since he's been on the mental health unit. Discussed importance of attending to his hygiene. He has no questions or concerns regarding his psychotropic medications he is focused on neuropathic pain. He asked that his Motrin be increased. Mental status exam: The patient is an obese male appearing his stated age. Is dressed in his own clothing he has a disheveled appearance his hygiene and grooming are impaired. His hair appears visibly dirty. Eye contact is appropriate speech is fluent spontaneous nonpressured. He reports his mood is still depressed he reports continued suicidal ideation and he spontaneously reports that he is not safe to leave the hospital. He demonstrates no evidence of hallucinations or specific delusions. He demonstrates no evidence of tangential thinking loose associations or flight of ideas. Insight and judgment remain limited. He remains oriented to person place and date. Plan: The patient will continue on his current medications I will titrate his Motrin 800 mg 3 times a day as needed. He requires continued psychiatric hospitalization. He is encouraged to shower today and attend all groups. We spent some time working on coping skill development and cognitive restructuring with certain situations. He does have a known borderline personality disorder. I do feel that it is not safe for him to return home yet as he would likely act out in a self-injurious manner if discharged at this time.
[2020-03-02] MEDS: IBUPROFEN 800 MG TAB PO PRN ×2 (10:41→21:21)
[2020-03-02] MEDS: buPROPion XL 150 MG TAB.ER.24H PO SCH (21:18)
[2020-03-02] MEDS: DESVENLAFAXINE SUCCINATE 50 MG TAB.ER.24H PO SCH (22:12)
[2020-03-03] MEDS: PROPRANOLOL 40 MG TAB PO SCH ×3 (03:55→15:13)
[2020-03-03] MEDS: ALPRAZolam 1 MG TAB PO SCH ×2 (08:35→21:23)
[2020-03-03] MEDS: ZIPRASIDONE 80 MG CAP PO SCH (08:35)
[2020-03-03] MEDS: LORATADINE 10 MG TAB PO SCH (08:35)
[2020-03-03] MEDS: PANTOPRAZOLE 40 MG TABLET PO SCH (08:36)
[2020-03-03] MEDS: LOPERAMIDE 2 MG CAP PO PRN ×2 (08:36→15:15)
[2020-03-03] MEDS: ACETAMINOPHEN TAB 500 MG TAB PO PRN ×3 (08:36→21:24)
[2020-03-03] MEDS: IBUPROFEN 800 MG TAB PO PRN ×2 (08:37→16:45)
[2020-03-03] MEDS: CAPSAICIN 0.025% CREAM 60 GM TUBE TOPICAL SCH ×3 (08:38→22:31)
[2020-03-03] MEDS: LIDOCAINE 5% PATCH TOPICAL SCH (08:39)
[2020-03-03 09:57] VITALS: BMI 41.0
--- NOTE | 2020-03-03 13:39 | P.PN ---
Progress Note - Text Progress Note Date: 03/03/20 Interval History: Patient was seen laying down in his bed today and was directable and agreeable to speak with principal technical writer in the office. And appears to have poor hygiene and grooming however was directable during conversation and for the most part appropriate. Without hesitation patient commence the interview by stating that he is continuing to feel suicidal and does not feel safe to go home. He state that his medications need "several weeks" to start helping him with his depression. He states that he has been off of his medications for months before coming into the hospital. He claims that he would like to stay on the current medications the way they are and states that his mood has been "going up and down" but claims that it is improving mildly. He states that he is going to "50%" of the groups and was encouraged to do so more to speak about his suicidal thoughts and encourage more coping skills and development. Dates that he slept of the night well. At this time patient homical ideations, intent or plan. Patient denies any auditory, visual hallucinations and denies any paranoia or delusions. Patient denies any side effects from the medications and has been compliant with meds. Mental Status Exam: General Appearance: Patient appears to be overweight, stated age is alert, directable, and superficial. Poor hygiene and grooming. Behavior: Patient is calmly seated without any agitated behavior. Speech: Patient's speech is fluent and nonpressured. Mood/Affect: Mood is improving mildly, affect is congruent and constricted. Suicidality/Homicidality: Patient denies having any homicidal ideation intent or plan. He continues to endorse suicidal thoughts however no intent or plan. Perceptions: Patient denies any visual hallucinations and denies any auditory hallucinations Though content/process: There is no evidence of any delusional thought content and thought process is linear and goal-directed. Perseverates on his medications and suicidal thoughts. Memory and concentration: AOX3, grossly intact for the purposes of this session Judgment and insight: Poor Assessment Depressive disorder unspecified Borderline personality disorder Plan: -Patient continues to meet criteria for inpatient psychiatric admission for symptom stabilization and safety. Patient has signed adult voluntary form and medication consent and was placed in patient's chart. -Medications: Continue with Xanax 1 mg twice a day, Pristiq 100 mg daily for mood/anxiety. Continue with Geodon 80 mg twice a day for mood stabilization. Continue the Wellbutrin 450 mg daily for mood. -When necessary Geodon for agitation/aggression. -NRT -not need this patient does not smoke. -SW on board for discharge planning. Encouraged the patient to participate in milieu. Patient was encouraged to continue attending groups to work on his coping skills. We'll continue to evaluate for possible discharge within 1-2 days if patient is improving in terms of his suicidal ideations.
[2020-03-03] MEDS ORDERED: ZIPRASIDONE 80 MG CAP ONE (18:30)
[2020-03-03] MEDS: buPROPion XL 150 MG TAB.ER.24H PO SCH (21:23)
[2020-03-03] MEDS: DESVENLAFAXINE SUCCINATE 50 MG TAB.ER.24H PO SCH (21:23)
[2020-03-04] MEDS: PROPRANOLOL 40 MG TAB PO SCH ×3 (05:11→16:59)
[2020-03-04] MEDS: IBUPROFEN 800 MG TAB PO PRN ×2 (05:37→16:39)
[2020-03-04] MEDS: ACETAMINOPHEN TAB 500 MG TAB PO PRN ×3 (05:38→18:37)
[2020-03-04] MEDS: ALPRAZolam 1 MG TAB PO SCH ×2 (08:26→21:12)
[2020-03-04] MEDS: LORATADINE 10 MG TAB PO SCH (08:26)
[2020-03-04] MEDS: ZIPRASIDONE 80 MG CAP PO SCH ×3 (08:26→18:37)
[2020-03-04] MEDS: PANTOPRAZOLE 40 MG TABLET PO SCH (08:26)
[2020-03-04] MEDS: LIDOCAINE 5% PATCH TOPICAL SCH (08:26)
[2020-03-04] MEDS: CAPSAICIN 0.025% CREAM 60 GM TUBE TOPICAL SCH ×2 (08:27→17:59)
[2020-03-04] MEDS: LOPERAMIDE 2 MG CAP PO PRN ×2 (08:27→16:40)
--- NOTE | 2020-03-04 09:03 | P.PN ---
Progress Note - Text Progress Note Date: 03/04/20 Interval History: Patient was seen sitting in his room at the side of his bed today and was dire ctable and agreeable to speak with underwriter solicitation director in the office. And appears to have improving hygiene and grooming and appeared to be more appropriate during conversation today and appeared to have a slightly improved affect. Patient continues to intellectualize his symptoms and be heavily about his medications and the doses. Today patient claims that he is continuing to feel suicidal and spoke about "I made cut my carotids if I go home to her early I don't know". He claims that he is trying to go to groups and is going to "75% of them" and agrees that he will need to be going to groups and have a therapist once he is discharged from the hospital. He states that he is continuing to have depression and anxiety. He spoke about being on Lamictal previously which has helped his mood and was agreeable to be restarted on this medication at this time. He states that he slept well last night and offers no complaints. At this time patient homical ideations, intent or plan. Patient denies any a uditory, visual hallucinations and denies any paranoia or delusions. Patient denies any side effects from the medications and has been compliant with meds. Mental Status Exam: General Appearance: Patient appears to be overweight, stated age is alert, directable, and superficial. Improving hygiene and grooming. Behavior: Patient is calmly seated without any agitated behavior. Speech: Patient's speech is fluent and nonpressured. Mood/Affect: Mood is improving mildly, affect is congruent and constricted. Suicidality/Homicidality: Patient denies having any homicidal ideation intent or plan. He continues to endorse suicidal thoughts however no intent or plan. Perceptions: Patient denies any visual hallucinations and denies any auditory hallucinations Though content/process: There is no evidence of any delusional thought content and thought process is linear and goal-directed. Perseverates on his medications and suicidal thoughts. Memory and concentration: AOX3, grossly intact for the purposes of this session Judgment and insight: Poor, improving mildly. Assessment Depressive disorder unspecified Borderline personality disorder Plan: -Patient continues to meet criteria for inpatient psychiatric admission for symptom stabilization and safety. Patient has signed adult voluntary form and medication consent and was placed in patient's chart. -Medications: Continue with Xanax 1 mg twice a day, Pristiq 100 mg daily for mood/anxiety. Continue with Geodon 80 mg twice a day for mood stabilization. Continue the Wellbutrin 450 mg daily for mood. Added Lamictal 25 mg twice a day for mood stabilization/depression. Patient was informed of a potential side effect of a rash and to notify medical staff as soon as it may be discovered. -When necessary Geodon for agitation/aggression. -NRT -not need this patient does not smoke. -SW on board for discharge planning. Encouraged the patient to participate in milieu. Patient was encouraged to continue attending groups to work on his coping skills. We'll continue to evaluate for possible discharge within 1-2 days if patient is improving in terms of his suicidal ideations.
[2020-03-04] MEDS: lamoTRIgine 25 MG TAB PO SCH ×2 (09:08→21:08)
[2020-03-04] MEDS: buPROPion XL 150 MG TAB.ER.24H PO SCH (21:08)
[2020-03-04] MEDS: DESVENLAFAXINE SUCCINATE 50 MG TAB.ER.24H PO SCH (21:09)
[2020-03-05] MEDS: ACETAMINOPHEN TAB 500 MG TAB PO PRN ×3 (03:34→18:37)
[2020-03-05] MEDS: LOPERAMIDE 2 MG CAP PO PRN ×3 (03:34→18:37)
[2020-03-05] MEDS: IBUPROFEN 800 MG TAB PO PRN ×3 (03:34→22:28)
[2020-03-05] MEDS: PROPRANOLOL 40 MG TAB PO SCH ×3 (03:52→15:27)
[2020-03-05] MEDS: CAPSAICIN 0.025% CREAM 60 GM TUBE TOPICAL SCH ×3 (08:38→22:27)
[2020-03-05] MEDS: LIDOCAINE 5% PATCH TOPICAL SCH (08:38)
[2020-03-05] MEDS: ZIPRASIDONE 80 MG CAP PO SCH ×2 (08:39→18:36)
[2020-03-05] MEDS: LORATADINE 10 MG TAB PO SCH (08:39)
[2020-03-05] MEDS: PANTOPRAZOLE 40 MG TABLET PO SCH (08:39)
[2020-03-05] MEDS: lamoTRIgine 25 MG TAB PO SCH ×2 (08:39→22:29)
[2020-03-05] MEDS: ALPRAZolam 1 MG TAB PO SCH ×2 (08:40→22:28)
--- NOTE | 2020-03-05 09:16 | P.PN ---
Progress Note - Text Progress Note Date: 03/05/20 Interval History: Patient was seen near the nurse's desk this morning and was directable and agr eeable to speak with specification writer in the office. He appears to have improving hygiene and grooming today however states that he did not shower yesterday but is planning to shower today. He claims that his mood has been improving "slightly" since yesterday with the addition of Lamictal. He claims that his mood is still "up and down" and claims that last night around 7 PM "my mood just dumped on me" and claims that he started feeling suicidal for several hours" and claims that there was no real trigger for it. He claims that he will be going to groups today and has been going to groups yesterday. He also states that he's been talking to more of the staff members and other patients on the unit. He states that his appetite is good however is continuing to have depression and anxiety. He states that he slept well last night and offers no complaints. At this time patient homical ideations, intent or plan. Patient denies any auditory, visual hallucinations and denies any paranoia or delusions. Patient denies any side effects from the medications and has been compliant with meds. Mental Status Exam: General Appearance: Patient appears to be overweight, stated age is alert, directable, and superficial. Improving hygiene and grooming. Behavior: Patient is calmly seated without any agitated behavior. Speech: Patient's speech is fluent and nonpressured. Mood/Affect: Mood is "up and down", affect is congruent and constricted. Suicidality/Homicidality: Patient denies having any homicidal ideation intent or plan. He continues to endorse suicidal thoughts however no intent or plan. Perceptions: Patient denies any visual hallucinations and denies any auditory hallucinations Though content/process: There is no evidence of any delusional thought content and thought process is linear and goal-directed. Perseverates on his medications and suicidal thoughts. Memory and concentration: AOX3, grossly intact for the purposes of this session Judgment and insight: Poor, improving mildly. Assessment Depressive disorder unspecified Borderline personality disorder Plan: -Patient continues to meet criteria for inpatient psychiatric admission for symptom stabilization and safety. Patient has signed adult voluntary form and medication consent and was placed in patient's chart. -Medications: Continue with Xanax 1 mg twice a day, Pristiq 100 mg daily for mood/anxiety. Continue with Geodon 80 mg twice a day for mood stabilization. Continue the Wellbutrin 450 mg daily for mood. Increased Lamictal 50 mg twice a day for mood stabilization/depression. Patient was informed of a potential side effect of a rash and to notify medical staff as soon as it may be discovered, he is currently denying any rash and we'll continue to monitor. -When necessary Geodon for agitation/aggression. -NRT -not need this patient does not smoke. -SW on board for discharge planning. Encouraged the patient to participate in milieu. Patient was encouraged to continue attending groups to work on his coping skills. We'll continue to evaluate for possible discharge early next week if patient is improving in terms of his suicidal ideations.
[2020-03-05] MEDS: buPROPion XL 150 MG TAB.ER.24H PO SCH (22:29)
[2020-03-05] MEDS: DESVENLAFAXINE SUCCINATE 50 MG TAB.ER.24H PO SCH (22:29)
[2020-03-06] MEDS: PROPRANOLOL 40 MG TAB PO SCH ×3 (03:32→15:48)
[2020-03-06] MEDS: ACETAMINOPHEN TAB 500 MG TAB PO PRN ×3 (06:54→20:50)
[2020-03-06] MEDS: LOPERAMIDE 2 MG CAP PO PRN (06:54)
[2020-03-06] MEDS: CAPSAICIN 0.025% CREAM 60 GM TUBE TOPICAL SCH ×3 (08:39→20:48)
[2020-03-06] MEDS: LIDOCAINE 5% PATCH TOPICAL SCH (08:39)
[2020-03-06] MEDS: LORATADINE 10 MG TAB PO SCH (08:41)
[2020-03-06] MEDS: lamoTRIgine 25 MG TAB PO SCH ×2 (08:41→20:50)
[2020-03-06] MEDS: PANTOPRAZOLE 40 MG TABLET PO SCH (08:41)
[2020-03-06] MEDS: IBUPROFEN 800 MG TAB PO PRN ×2 (08:42→15:48)
[2020-03-06] MEDS: ALPRAZolam 1 MG TAB PO SCH ×2 (08:42→20:49)
[2020-03-06] MEDS: ZIPRASIDONE 80 MG CAP PO SCH ×2 (08:42→18:09)
--- NOTE | 2020-03-06 11:43 | P.PN ---
Progress Note - Text Progress Note Date: 03/06/20 Interval history: Patient is seen in cross coverage today. He describes that his mood is feeling better. He feels like the Lamictal has been beneficial for him. He does not verbalize any adverse psychotropic medication side effects. Mental status exam: He is alert and cooperative with the interview. His speech is fluent, not rapid or pressured. Thought processes are organized. His affect does show range, smiles at times. He denies any current thoughts of harm to self. He does not voice any thoughts of harm to others. No evidence of active psychosis or agitation. Plan: Patient will be maintained on current psychotropic medication regimen. Continue to monitor for any psychotropic medication side effects and monitor his ongoing response to treatment. He does make reference to looking at discharge planning for Sunday.
[2020-03-06] MEDS: DESVENLAFAXINE SUCCINATE 50 MG TAB.ER.24H PO SCH (20:49)
[2020-03-06] MEDS: buPROPion XL 150 MG TAB.ER.24H PO SCH (20:50)
[2020-03-07] MEDS: PROPRANOLOL 40 MG TAB PO SCH ×3 (03:41→16:34)
[2020-03-07] MEDS: ACETAMINOPHEN TAB 500 MG TAB PO PRN ×3 (06:14→17:28)
[2020-03-07] MEDS: IBUPROFEN 800 MG TAB PO PRN ×2 (06:15→15:14)
[2020-03-07] MEDS: CAPSAICIN 0.025% CREAM 60 GM TUBE TOPICAL SCH ×3 (08:40→19:45)
[2020-03-07] MEDS: LIDOCAINE 5% PATCH TOPICAL SCH (08:40)
[2020-03-07] MEDS: LOPERAMIDE 2 MG CAP PO PRN ×2 (08:43→15:13)
[2020-03-07] MEDS: LORATADINE 10 MG TAB PO SCH (08:43)
[2020-03-07] MEDS: ALPRAZolam 1 MG TAB PO SCH ×2 (08:43→21:39)
[2020-03-07] MEDS: lamoTRIgine 25 MG TAB PO SCH ×2 (08:44→21:40)
[2020-03-07] MEDS: ZIPRASIDONE 80 MG CAP PO SCH ×2 (08:44→18:39)
[2020-03-07] MEDS: PANTOPRAZOLE 40 MG TABLET PO SCH (08:44)
--- NOTE | 2020-03-07 17:56 | P.PN ---
Progress Note - Text Progress Note Date: 03/07/20 Interval history: Patient reports that this was most severe episodes he had but he is feeling much better and does talk about feeling ready for discharge planning. He reports that he had been having thoughts of suicide and feeling hopeless, relays that he is no longer having any thoughts of suicide and has more hope. He talks about wanting to be able to look at getting more social interaction. He does not verbalize any adverse psychotropic medication side effects. Mental status exam: He is alert and cooperative with the interview. His speech is fluent, not rapid or pressured. Thought processes are organized. His mood is improved. He denies any current thoughts of suicide. He does not voice any thoughts of harming others. No evidence of psychosis. Plan: Patient will be maintained on current psychotropic medication regimen. We'll continue to monitor for any medication side effects and monitor his ongoing response to treatment.
[2020-03-07] MEDS: buPROPion XL 150 MG TAB.ER.24H PO SCH (21:40)
[2020-03-07] MEDS: DESVENLAFAXINE SUCCINATE 50 MG TAB.ER.24H PO SCH (21:40)
[2020-03-08] MEDS: LOPERAMIDE 2 MG CAP PO PRN ×2 (00:52→17:43)
[2020-03-08] MEDS: IBUPROFEN 800 MG TAB PO PRN ×3 (00:53→17:41)
[2020-03-08] MEDS: ACETAMINOPHEN TAB 500 MG TAB PO PRN ×3 (00:53→17:42)
[2020-03-08] MEDS: PROPRANOLOL 40 MG TAB PO SCH ×3 (03:40→16:23)
[2020-03-08] MEDS: LORATADINE 10 MG TAB PO SCH (09:15)
[2020-03-08] MEDS: CAPSAICIN 0.025% CREAM 60 GM TUBE TOPICAL SCH ×2 (09:15→18:40)
[2020-03-08] MEDS: PANTOPRAZOLE 40 MG TABLET PO SCH (09:15)
[2020-03-08] MEDS: LIDOCAINE 5% PATCH TOPICAL SCH (09:15)
[2020-03-08] MEDS: lamoTRIgine 25 MG TAB PO SCH (09:15)
[2020-03-08] MEDS: ZIPRASIDONE 80 MG CAP PO SCH ×2 (09:15→18:40)
[2020-03-08] MEDS: ALPRAZolam 1 MG TAB PO SCH ×2 (09:17→20:41)
--- NOTE | 2020-03-08 11:10 | P.PN ---
Progress Note - Text Progress Note Date: 03/08/20 Interval History: Patient was seen laying down on his bed this morning and was directable and ag reeable to speak with entry writer in the office. He appears to have improving hygiene and grooming today. Patient was tearful at times during the interview and expressed hopelessness and ongoing depression. He claims that he continues to struggle with ongoing suicidal thoughts however does not express any intent or plan. He states that he feels he is trying his hardest being on the unit however feels his "mood swings" or too much for him. He claims that he has struggled with this for many years. He states that he had a good weekend up until today. He claims that his mood has been more regulated on the Lamictal however request to have the dose increased today. He claims that he will be going to groups today and has been going to groups and working on his coping skills. Avionics Systems Technician discussed with patient his diagnoses and answer questions related to borderline personality disorder. Patient was cooperative and directable with entry writer. He states that he was able to sleep throughout the [facility] t. At this time patient homical ideations, intent or plan. Patient denies any auditory, visual hallucinations and denies any paranoia or delusions. Patient denies any side effects from the medications and has been compliant with meds. Mental Status Exam: General Appearance: Patient appears to be overweight, stated age is alert, directable, and superficial. Improving hygiene and grooming. Behavior: Patient is calmly seated without any agitated behavior. Speech: Patient's speech is fluent and nonpressured. Mood/Affect: Mood is "up and down", affect is congruent and tearful at times. Suicidality/Homicidality: Patient denies having any homicidal ideation intent or plan. He continues to endorse suicidal thoughts however no intent or plan. Perceptions: Patient denies any visual hallucinations and denies any auditory hallucinations Though content/process: There is no evidence of any delusional thought content and thought process is linear and goal-directed. Perseverates on his medic ations and suicidal thoughts, mildly improving. Memory and concentration: AOX3, grossly intact for the purposes of this session Judgment and insight: Poor, improving mildly. Assessment Depressive disorder unspecified Borderline personality disorder Plan: -Patient continues to meet criteria for inpatient psychiatric admission for symptom stabilization and safety. Patient has signed adult voluntary form and medication consent and was placed in patient's chart. -Medications: Continue with Xanax 1 mg twice a day, Pristiq 100 mg daily for mood/anxiety. Continue with Geodon 80 mg twice a day for mood stabilization. Continue the Wellbutrin 450 mg daily for mood. Increased Lamictal 50 mg daily +100 mg daily at bedtime for mood stabilization/depression. Patient was informed of a potential side effect of a rash and to notify medical staff as soon as it may be discovered, he is currently denying any rash and we'll continue to monitor. -When necessary Geodon for agitation/aggression. -NRT -not need this patient does not smoke. -SW on board for discharge planning. Encouraged the patient to participate in milieu. Patient was encouraged to continue attending groups to work on his coping skills. We'll continue to evaluate for possible discharge if patient is improving in terms of his suicidal ideations.
[2020-03-08] MEDS: buPROPion XL 150 MG TAB.ER.24H PO SCH (20:41)
[2020-03-08] MEDS: lamoTRIgine 100 MG TAB PO SCH (20:41)
[2020-03-08] MEDS: DESVENLAFAXINE SUCCINATE 50 MG TAB.ER.24H PO SCH (22:44)
[2020-03-09] MEDS: CAPSAICIN 0.025% CREAM 60 GM TUBE TOPICAL SCH ×4 (02:01→21:01)
[2020-03-09] MEDS: PROPRANOLOL 40 MG TAB PO SCH ×3 (03:37→16:24)
[2020-03-09] MEDS: ACETAMINOPHEN TAB 500 MG TAB PO PRN ×2 (03:39→11:20)
[2020-03-09] MEDS: IBUPROFEN 800 MG TAB PO PRN ×2 (03:40→11:20)
[2020-03-09] MEDS: LOPERAMIDE 2 MG CAP PO PRN ×2 (06:24→16:24)
[2020-03-09] MEDS: ALPRAZolam 1 MG TAB PO SCH ×2 (08:26→19:51)
[2020-03-09] MEDS: lamoTRIgine 25 MG TAB PO SCH (08:26)
[2020-03-09] MEDS: LORATADINE 10 MG TAB PO SCH (08:26)
[2020-03-09] MEDS: ZIPRASIDONE 80 MG CAP PO SCH ×2 (08:26→19:51)
[2020-03-09] MEDS: PANTOPRAZOLE 40 MG TABLET PO SCH (08:26)
[2020-03-09] MEDS: LIDOCAINE 5% PATCH TOPICAL SCH (08:48)
--- NOTE | 2020-03-09 11:52 | P.PN ---
Progress Note - Text Interval history: The patient's found in his room he follows me to an interview room. He indicates his mood was reckless yesterday I did review progress notes in my absence. He reported mood swings suicidal thoughts. He states that he feels better now that he catharted yesterday. He feels his mood is more stable and is beginning to feel more hopeful. We reviewed his psychotropic medications as questions were answered. We spent some time reviewing his diagnosis including personality disorder traits. Mental status exam: The patient is alert he is dressed in his own clothing is a disheveled appearance hygiene is improving. He reports mood is improved affect is becoming brighter speech is fluent spontaneous nonpressured he demonstrates no tangential thinking loose associations or any flight of ideas. He reports he is feeling safer he reports no homicidal ideation intent or plan no report of any auditory or visual hallucinations or specific delusions. He demonstrates no verbal or physical aggressiveness he demonstrates no involuntary repetitive movements. Plan: The patient will continue on his current psychotropic medications we will evaluate him for another 24 hours if he reports that his mood is consistently improving and appears chronically stable we will consider discharging him in the next 1-2 days. He is encouraged to fully participate in the milieu we will monitor him for safety. Vital signs reviewed.
[2020-03-09] MEDS: buPROPion XL 150 MG TAB.ER.24H PO SCH (19:51)
[2020-03-09] MEDS: lamoTRIgine 100 MG TAB PO SCH (19:52)
[2020-03-09] MEDS: DESVENLAFAXINE SUCCINATE 50 MG TAB.ER.24H PO SCH (19:52)
[2020-03-10] MEDS: ACETAMINOPHEN TAB 500 MG TAB PO PRN ×3 (01:33→13:44)
[2020-03-10] MEDS: LOPERAMIDE 2 MG CAP PO PRN ×3 (01:33→13:44)
[2020-03-10] MEDS: IBUPROFEN 800 MG TAB PO PRN ×2 (01:34→08:27)
[2020-03-10] MEDS: PROPRANOLOL 40 MG TAB PO SCH ×2 (04:08→08:28)
[2020-03-10 06:51] VITALS: RESP 16
[2020-03-10] MEDS: CAPSAICIN 0.025% CREAM 60 GM TUBE TOPICAL SCH (08:25)
[2020-03-10] MEDS: LIDOCAINE 5% PATCH TOPICAL SCH (08:25)
[2020-03-10] MEDS: ZIPRASIDONE 80 MG CAP PO SCH (08:28)
[2020-03-10] MEDS: PANTOPRAZOLE 40 MG TABLET PO SCH (08:28)
[2020-03-10] MEDS: lamoTRIgine 25 MG TAB PO SCH (08:28)
[2020-03-10] MEDS: LORATADINE 10 MG TAB PO SCH (08:28)
[2020-03-10] MEDS: ALPRAZolam 1 MG TAB PO SCH (08:29)
[2020-03-10 09:21] VITALS: BP 127/73; PULSE 87
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
[2020-03-10 12:58] VITALS: TEMP 97.3
== END 2020-03-10 13:56 | disposition home or self-care (01) | DRG 885 ==
LOC: EC 13:24 → 3MHU 18:08
PROVIDERS: ADMIT Psychiatry & Neurology Psychiatry; ATTEND Psychiatry & Neurology Psychiatry
DX: F33.2 Major depressive disorder, recurrent severe without psychotic features (principal); Z68.41 Body mass index [BMI] 40.0-44.9, adult; R45.851 Suicidal ideations; E66.3 Overweight; F17.210 Nicotine dependence, cigarettes, uncomplicated; F41.0 Panic disorder [episodic paroxysmal anxiety]; F41.1 Generalized anxiety disorder; F60.3 Borderline personality disorder; F90.0 Attention-deficit hyperactivity disorder, predominantly inattentive type; G89.29 Other chronic pain; I10 Essential (primary) hypertension; J32.9 Chronic sinusitis, unspecified; J45.909 Unspecified asthma, uncomplicated; M47.9 Spondylosis, unspecified; Z78.1 Physical restraint status; Z79.899 Other long term (current) drug therapy; Z82.5 Family history of asthma and other chronic lower respiratory diseases; Z91.5 Personal history of self-harm; F17.200 Nicotine dependence, unspecified, uncomplicated
CPT/HCPCS: 80053; 80061; 80306; 82075; 83036; 84443; 85025; 99285

== ENCOUNTER 2020-04-15 20:10 | Inpatient (IN) | payer MEDICARE ==
--- NOTE | 2020-04-15 20:54 | ED ---
General Adult HPI - General Chief complaint: Psychiatric Symptoms Stated complaint: Mental health Time Seen by Provider: 04/15/20 20:21 Source: patient Mode of arrival: ambulatory Limitations: no limitations - History of Present Illness Initial comments: 55-year-old male with a past medical history of anxiety, panic disorder, depression presents to the emergency department for a chief complaint of suicidal thoughts. Patient reports that he has felt very depressed and suicidal for the past couple weeks. Patient states he plans on overdosing and "I have the means to do it." Patient reports he has 1500 pills of aspirin in 1500 pills of Tylenol along with all his prescription medications that he wants to take to kill himself. Patient reports that he is also having thoughts that the FBI is following him. He reports that they're keeping him up and not letting him sleep for 3 nights at a time. Patient does state he is currently taking his med ications as prescribed.Patient has no other complaints at this time including shortness of breath, chest pain, abdominal pain, nausea or vomiting, headache, or visual changes. - Related Data Home Medications Medication Instructions Recorded Confirmed ALPRAZolam [Xanax] 1 mg PO BID@0000,0800 08/15/16 04/15/20 Propranolol [Inderal] 40 mg PO TID@0400,1000,1600 01/19/17 04/15/20 Desvenlafaxine [Pristiq ER] 100 mg PO HS@0000 02/25/20 04/15/20 Loratadine [Claritin] 10 mg PO DAILY@0800 02/25/20 04/15/20 Ondansetron HCl [Zofran] 8 mg PO Q8H PRN 02/25/20 04/15/20 Ziprasidone [Geodon] 80 mg PO BID@0830,1830 04/15/20 04/15/20 lamoTRIgine [LaMICtal] 50 mg PO DAILY 04/15/20 04/15/20 Previous Rx's Medication Instructions Recorded buPROPion XL [Wellbutrin XL] 450 mg PO HS #90 tab.er.24h 03/10/20 lamoTRIgine [LaMICtal] 100 mg PO HS #45 tab 03/10/20 Allergies Allergy/AdvReac Type Severity Reaction Status Date / Time No Known Allergies Allergy Verified 04/15/20 20:22 Review of Systems ROS Statement: Those systems with pertinent positive or pertinent negative responses have been documented in the HPI. ROS Other: All systems not noted in ROS Statement are negative. 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 History of Any Multi-Drug Resistant Organisms: None Reported Past Surgical History: Tonsillectomy Additional Past Surgical History / Comment(s): biopsys of tumors on thyroid and spot in his lung. Past Anesthesia/Blood Transfusion Reactions: No Reported Reaction Past Psychological History: Anxiety, Depression, Panic Disorder Smoking Status: Former smoker Past Alcohol Use History: Abuse Past Drug Use History: None Reported - Past Family History Mother Family Medical History: COPD General Exam Limitations: no limitations General appearance: alert, in no apparent distress Head exam: Present: atraumatic, normocephalic, normal inspection Eye exam: Present: normal appearance, PERRL, EOMI. Absent: scleral icterus, conjunctival injection, periorbital swelling ENT exam: Present: normal exam, mucous membranes moist Neck exam: Present: normal inspection. Absent: tenderness, meningismus, lymphadenopathy Respiratory exam: Present: normal lung sounds bilaterally. Absent: respiratory distress, wheezes, rales, rhonchi, stridor Cardiovascular Exam: Present: regular rate, normal rhythm, normal heart sounds. Absent: systolic murmur, diastolic murmur, rubs, gallop, clicks Neurological exam: Present: alert Psychiatric exam: Present: manic Course Vital Signs 04/15/20 20:12 Temperature 98.0 F Pulse Rate 76 Respiratory 18 Rate Blood Pressure 140/92 O2 Sat by Pulse 97 Oximetry Medical Decision Making - Medical Decision Making Patient was evaluated by EPS, currently recommending inpatient management. - Lab Data Lab Results 04/15/20 04/15/20 Range/Units 20:30 20:30 Urine Color Yellow Urine Appearance Clear (Clear) Urine pH 6.5 (5.0-8.0) Ur Specific [place] 1.018 (1.001-1.035) Urine Protein Negative (Negative) Urine Glucose (UA) Negative (Negative) Urine Ketones Negative (Negative) Urine Blood Trace H (Negative) Urine Nitrite Negative (Negative) Urine Bilirubin Negative (Negative) Urine Urobilinogen <2.0 (<2.0) mg/dL Ur Leukocyte Esterase Negative (Negative) Urine RBC 2 (0-5) /hpf Urine WBC 1 (0-5) /hpf Urine Mucus Rare H (None) /hpf Urine Opiates Screen Not Detected (NotDetected) Ur Oxycodone Screen Not Detected (NotDetected) Urine Methadone Screen Not Detected (NotDetected) Ur Propoxyphene Screen Not Detected (NotDetected) Ur Barbiturates Screen Not Detected (NotDetected) U Tricyclic Antidepress Not Detected (NotDetected) Ur Phencyclidine Scrn Not Detected (NotDetected) Ur Amphetamines Screen Not Detected (NotDetected) U Methamphetamines Scrn Not Detected (NotDetected) U Benzodiazepines Scrn Detected H (NotDetected) Urine Cocaine Screen Not Detected (NotDetected) U Marijuana (THC) Screen Not Detected (NotDetected) Disposition Clinical Impression: Suicidal ideation Disposition: TRANSFER TO PSYCH HOSP/UNIT Is patient prescribed a controlled substance at d/c from ED?: No Referrals: Rufino Uriostegui MD [Primary Care Provider] - 1-2 days Time of Disposition: 22:32
[2020-04-15 21:03] LABS: Appearance,Urine Clear (Clear); Bilirubin,Urine Negative (Negative); Blood,Urine Trace (Negative); Color,Urine Yellow; Glucose,Urine (UA) Negative (Negative); Ketones,Urine Negative (Negative); Leukocyte Esterase,Urine Negative (Negative); Mucus,Urine Rare /hpf; Nitrite,Urine Negative (Negative); PH, Urine 6.5 (5.0-8.0); Protein,Urine Negative (Negative); RBC,Urine 2 /hpf (0-5); Specific Gravity,Urine 1.018 (1.001-1.035); Urobilinogen,Urine <2.0 mg/dL (<2.0); WBC,Urine 1 /hpf (0-5)
[2020-04-15 21:20] LABS: Amphetamine Screen,Urine Not Detected (NotDetected); Barbiturate Screen,Urine Not Detected (NotDetected); Benzodiazepines Screen,Urine Detected (NotDetected); Cocaine Screen,Urine Not Detected (NotDetected); Methadone Screen, Urine Not Detected (NotDetected); Opiate Screen,Urine Not Detected (NotDetected); Oxycodone Screen, Urine Not Detected (NotDetected); Phencyclidine Screen,Urine Not Detected (NotDetected); Tricyclic Antidepressant,Urine Not Detected (NotDetected); Urn Cannabinoid Scrn Not Detected (NotDetected)
[2020-04-15] MEDS ORDERED: MAGNESIUM HYDROXIDE 2,400 MG/10 ML CUP PO PRN (23:06)
[2020-04-15] MEDS ORDERED: ONDANSETRON 4 MG TAB PO PRN (23:30)
[2020-04-15] MEDS: ALPRAZolam 1 MG TAB PO PRN (23:51)
[2020-04-16] MEDS ORDERED: ZIPRASIDONE 20 MG VIAL IM PRN
[2020-04-16] MEDS: DESVENLAFAXINE SUCCINATE 50 MG TAB.ER.24H PO SCH ×3 (01:17→21:57)
[2020-04-16] MEDS: buPROPion XL 150 MG TAB.ER.24H PO SCH ×2 (01:17→20:41)
[2020-04-16] MEDS: lamoTRIgine 100 MG TAB PO SCH ×2 (01:17→20:41)
[2020-04-16] MEDS: MAG HYDROX/AL HYDROX/SIMETH 30 ML CUP PO PRN (03:51)
[2020-04-16] MEDS: PROPRANOLOL 40 MG TAB PO SCH ×3 (04:02→16:40)
[2020-04-16] MEDS: ZIPRASIDONE 80 MG CAP PO SCH ×2 (08:33→19:13)
[2020-04-16] MEDS: LORATADINE 10 MG TAB PO SCH (08:33)
[2020-04-16] MEDS: DIPHENOX-ATROP 2.5-0.025 MG 1 EACH TAB PO PRN ×2 (08:33→14:14)
[2020-04-16] MEDS: ACETAMINOPHEN TAB 500 MG TAB PO PRN ×2 (08:34→17:40)
[2020-04-16] MEDS: lamoTRIgine 25 MG TAB PO SCH (08:34)
[2020-04-16 09:46] LABS: Basophils # (A) 0.1 k/uL (0-0.2); Basophils % (A) 1 %; Eosinophils # (A) 0.9 k/uL (0-0.7); Eosinophils % (A) 8 %; HCT 43.6 % (39.0-53.0); HGB 14.3 gm/dL (13.0-17.5); Lymphocytes # (A) 3.5 k/uL (1.0-4.8); Lymphocytes % (A) 32 %; MCH 30.5 pg (25.0-35.0); MCHC 32.8 g/dL (31.0-37.0); MCV 92.8 fL (80.0-100.0); Mean Platelet Volume 7.7; Monocytes # (A) 0.7 k/uL (0-1.0); Monocytes % (A) 7 %; Neutrophils # (A) 5.6 k/uL (1.3-7.7); Neutrophils % (A) 51 %; Platelet Count 323 k/uL (150-450); RDW 12.9 % (11.5-15.5)
[2020-04-16 09:53] LABS: ALT 28 U/L (4-49); AST 27 U/L (17-59); African American GFR (CKD) >90 (>60 ml/min/1.73 sqM); Albumin 4.3 g/dL (3.5-5.0); Alkaline Phosphatase 59 U/L (38-126); Anion Gap 7 mmol/L; Blood Urea Nitrogen 13 mg/dL (9-20); Calcium 9.7 mg/dL (8.4-10.2); Carbon Dioxide 30 mmol/L (22-30); Chloride 102 mmol/L (98-107); Cholesterol 189 mg/dL (<200); Glucose 103 mg/dL (74-99); HDL Cholesterol 51 mg/dL (40-60); LDL Cholesterol,Calculated 89 mg/dL (0-99); Non-African American GFR(CKD) 83 (>60 ml/min/1.73 sqM); Potassium 4.9 mmol/L (3.5-5.1); Sodium 139 mmol/L (137-145); Total Bilirubin 0.4 mg/dL (0.2-1.3); Total Protein 7.4 g/dL (6.3-8.2); Triglycerides 246 mg/dL (<150)
[2020-04-16] MEDS: IBUPROFEN 800 MG TAB PO PRN ×2 (10:17→17:39)
--- NOTE | 2020-04-16 13:39 | P.HP ---
Psychiatric H&P - . H&P Date: 04/16/20 History & Physical: IDENTIFYING DATA: He is a 55-year-old male well known to the psychiatric unit from prior admissions. He was last discharged from the unit on 03/10/2020. HISTORY OF PRESENT ILLNESS: He presented to the unit voluntarily with complaints of increasing depression and suicidal ideation. He alleged that he is "stockpiling" aspirin and Tylenol to overdose and alleged that his accumulated 1500 pills of both medications. He decided to come to the hospital rather than overdose on the medications. He also described a chronic and ongoing belief that he is subject of an FBI investigation. 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 He believes he is under investigation by FBI for his work with some of the patients. He is vague about this belief and would not discuss the details or specifics. He is distressed that his outpatient psychiatrist, Dr. Penny, is leaving. Dr. Penny has been his outpatient psychiatrist for the last 8 years. Since his last appointment with Dr. Penny he has been "searching" for another psychiatrist and alleged that he found a psychiatrist in [place], Dr. Smith. He is also distressed that the [facility] is closing the outpatient clinic. When last met with his therapist, Zina, she told him that she would may not be able to continue treating him because she was uncertain of her status with the [facility] but they may continue when she is working with a different agency. Similar to Dr. Penny he has been working with [facility] for over 8 years. He describes fluctuating levels of depression where he would be depressed for hours to days. He denied experiencing periods of sustained irritability or elevated mood suggestive of john or hypomania. Other than the above chronic delusional belief is well documented in past admission assessments, he denied experiencing such psychotic symptoms as auditory, visual or olfactory hallucinations, ideas reference, thought insertion etc. He complained of chronic and persistent anxiety that, like the depression, fluctuates in intensity. He denied the use of alcohol or drugs. His UDS was only positive for benzodiazepines (he is prescribed Xanax). PAST PSYCHIATRIC HISTORY: He is had multiple admissions to this psychiatric unit. This would be his sixth since August 2016. The diagnoses from his last discharge included major depressive disorders recurrent, generalized anxiety di sorder and ADHD PAST MEDICAL HISTORY: Morbid obesity ALLERGIES: NO KNOWN DRUG ALLERGIES SUBSTANCE USE HISTORY: He denied history of substance use or substance use problems. His nerve been in residence of [facility] substance abuse treatment program. FAMILY PSYCHIATRIC/SUBSTANCE USE HISTORY: He has 2 daughters who are autistic LEGAL HISTORY: Denied SOCIAL HISTORY: He lives alone in a "ballroom apartment in [facility]. He is unemployed and receives social security disability. He supplements his disability by donating plasma. 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 He has few social supports other than his ex-. MENTAL STATUS EXAM: He presented as a depressed appearing 55-year-old male who is morbidly obese. He made eye contact and attended to the interview. He had no prominent physical abnormalities. He was alert and oriented to person, place and time. He showed psychomotor retardation but no abnormal involuntary movements. Speech was spontaneous with slight decrease in rate and rhythm. No articulation difficulties. His affect was depressed and not reactive. He expressed suicidal ideation and wishes. He denied homicidal ideation. He feels hopeless, helpless and worthless. He ruminated about the loss of his psychiatrist and his individual therapist. He did not express ideas reference but described a fixed and persistent paranoid delusional beliefs. His thinking was concrete but his associations were coherent and logical. He did not demonstrate blocking or perseveration. He denied hallucinations and did not appear to be responding to internal stimuli. Global impression of intellect is average. He is aware of his illness and need for treatment. STRENGTHS: Able income, stable housing, relatively good physical health WEAKNESSES: Loss of outpatient mental health providers, limited social support IMPRESSION: He is a 55-year-old male who presented with increasing depression and suicidal ideation. He also described with a chronic and ongoing paranoid delusional beliefs. The worsening depression developed in the context of significant pending losses of his long-term psychiatrist and individual therapist. He should be treated inpatient basis with combination of psychopharmacology and multimodal therapy. He would benefit from referral to community mental health where he would have access to psychiatric services, therapist as well as social range of psychosocial supports including support groups, peer support specialists and the drop-in center. PRINCIPLE DIAGNOSIS: Suicidal ideation , major depressive disorder recurrent severe with psychotic features, rule out schizoaffective disorder RECOMMENDATION: Admitted to the psychiatric unit. Safety precautions. Consult medicine for initial physical exam and medical history. bilingual social worker to complete initial psychosocial supplement and coordinate discharge and aftercare. Continue outpatient medications including Xanax 1 mg by mouth twice a day, Wellbutrin XL 450 mg at bedtime, Pristiq 100 mg at bedtime, Lamictal 50 mg daily 100 mg at bedtime and Geodon 80 mg by mouth twice a day. Discuss a referral to [facility] mental health his thinking the range of support services that would be available. Encourage participation in therapeutic groups and activities. Evaluate clinical status response to treatment on a daily basis. Allergies Allergy/AdvReac Type Severity Reaction Status Date / Time No Known Allergies Allergy Verified 04/15/20 20:22 Vital Signs Temp 98.1 F 04/16/20 10:19 Pulse 80 04/16/20 10:19 Resp 20 04/16/20 10:19 BP 136/63 04/16/20 10:19 Pulse Ox 98 04/16/20 00:38 Intake & Output 04/15/20 04/16/20 04/16/20 18:59 06:59 18:59 Weight 123.468 kg Laboratory Last Values WBC 11.0 k/uL (3.8-10.6) H 04/16/20 08:39 RBC 4.70 m/uL (4.30-5.90) 04/16/20 08:39 Hgb 14.3 gm/dL (13.0-17.5) 04/16/20 08:39 Hct 43.6 % (39.0-53.0) 04/16/20 08:39 MCV 92.8 fL (80.0-100.0) 04/16/20 08:39 MCH 30.5 pg (25.0-35.0) 04/16/20 08:39 MCHC 32.8 g/dL (31.0-37.0) 04/16/20 08:39 RDW 12.9 % (11.5-15.5) 04/16/20 08:39 Plt Count 323 k/uL (150-450) 04/16/20 08:39 Neutrophils % 51 % 04/16/20 08:39 Lymphocytes % 32 % 04/16/20 08:39 Monocytes % 7 % 04/16/20 08:39 Eosinophils % 8 % 04/16/20 08:39 Basophils % 1 % 04/16/20 08:39 Neutrophils # 5.6 k/uL (1.3-7.7) 04/16/20 08:39 Lymphocytes # 3.5 k/uL (1.0-4.8) 04/16/20 08:39 Monocytes # 0.7 k/uL (0-1.0) 04/16/20 08:39 Eosinophils # 0.9 k/uL (0-0.7) H 04/16/20 08:39 Basophils # 0.1 k/uL (0-0.2) 04/16/20 08:39 Sodium 139 mmol/L (137-145) 04/16/20 08:39 Potassium 4.9 mmol/L (3.5-5.1) 04/16/20 08:39 Chloride 102 mmol/L (98-107) 04/16/20 08:39 Carbon Dioxide 30 mmol/L (22-30) 04/16/20 08:39 Anion Gap 7 mmol/L 04/16/20 08:39 BUN 13 mg/dL (9-20) 04/16/20 08:39 Creatinine 1.02 mg/dL (0.66-1.25) 04/16/20 08:39 Est GFR (CKD-EPI)AfAm >90 (>60 ml/min/1.73 sqM) 04/16/20 08:39 Est GFR (CKD-EPI)NonAf 83 (>60 ml/min/1.73 sqM) 04/16/20 08:39 Glucose 103 mg/dL (74-99) H 04/16/20 08:39 Calcium 9.7 mg/dL (8.4-10.2) 04/16/20 08:39 Total Bilirubin 0.4 mg/dL (0.2-1.3) 04/16/20 08:39 AST 27 U/L (17-59) 04/16/20 08:39 ALT 28 U/L (4-49) 04/16/20 08:39 Alkaline Phosphatase 59 U/L (38-126) 04/16/20 08:39 Total Protein 7.4 g/dL (6.3-8.2) 04/16/20 08:39 Albumin 4.3 g/dL (3.5-5.0) 04/16/20 08:39 Triglycerides 246 mg/dL (<150) H 04/16/20 08:39 Cholesterol 189 mg/dL (<200) 04/16/20 08:39 LDL Cholesterol, Calc 89 mg/dL (0-99) 04/16/20 08:39 HDL Cholesterol 51 mg/dL (40-60) 04/16/20 08:39 TSH 3.640 mIU/L (0.465-4.680) 04/16/20 08:39 Urine Color Yellow 04/15/20 20:30 Urine Appearance Clear (Clear) 04/15/20 20: Urine pH 6.5 (5.0-8.0) 04/15/20 20:30 Ur Specific Manson 1.018 (1.001-1.035) 04/15/20 20:30 Urine Protein Negative (Negative) 04/15/20 20:30 Urine Glucose (UA) Negative (Negative) 04/15/20 20:30 Urine Ketones Negative (Negative) 04/15/20 20:30 Urine Blood Trace (Negative) H 04/15/20 20:30 Urine Nitrite Negative (Negative) 04/15/20 20:30 Urine Bilirubin Negative (Negative) 04/15/20 20:30 Urine Urobilinogen <2.0 mg/dL (<2.0) 04/15/20 20:30 Ur Leukocyte Esterase Negative (Negative) 04/15/20 20:30 Urine RBC 2 /hpf (0-5) 04/15/20 20:30 Urine WBC 1 /hpf (0-5) 04/15/20 20:30 Urine Mucus Rare /hpf (None) H 04/15/20 20:30 Urine Opiates Screen Not Detected (NotDetected) 04/15/20 20:30 Ur Oxycodone Screen Not Detected (NotDetected) 04/15/20 20:30 Urine Methadone Screen Not Detected (NotDetected) 04/15/20 20:30 Ur Propoxyphene Screen Not Detected (NotDetected) 04/15/20 20:30 Ur Barbiturates Screen Not Detected (NotDetected) 04/15/20 20:30 U Tricyclic Antidepress Not Detected (NotDetected) 04/15/20 20:30 Ur Phencyclidine Scrn Not Detected (NotDetected) 04/15/20 20:30 Ur Amphetamines Screen Not Detected (NotDetected) 04/15/20 20:30 U Methamphetamines Scrn Not Detected (NotDetected) 04/15/20 20:30 U Benzodiazepines Scrn Detected (NotDetected) H 04/15/20 20:30 Urine Cocaine Screen Not Detected (NotDetected) 04/15/20 20:30 U Marijuana (THC) Screen Not Detected (NotDetected) 04/15/20 20:30 04/16/20 13:19
[2020-04-16] MEDS: ALPRAZolam 1 MG TAB PO PRN (14:14)
--- NOTE | 2020-04-16 16:41 | P.CONS ---
History of Present Illness - Reason for Consult Cellulitis or gastroesophageal reflux disease - History of Present Illness (-year-old gentleman admitted for major depression. Patient denied any fever chills nausea vomiting abdominal pain dysuria. Patient has a left great toe deformity leading to cellulitis patient follows up with Anast[facility] an outpatient. Patient is also complaining of gases patient reflux symptoms including the acid reflux and burning. Review of Systems REVIEW OF SYSTEMS: CONSTITUTIONAL: No fever, no malaise, no fatigue. HEENT: No recent visual problems or hearing problems. Denied any sore throat. CARDIOVASCULAR: No chest pain, orthopnea, PND, no palpitations, no syncope. PULMONARY: No shortness of breath, no cough, no hemoptysis. GASTROINTESTINAL: No diarrhea, no nausea, no vomiting, no abdominal pain. NEUROLOGICAL: No headaches, no weakness, no numbness. HEMATOLOGICAL: Denies any bleeding or petechiae. GENITOURINARY: Denies any burning micturition, frequency, or urgency. MUSCULOSKELETAL/RHEUMATOLOGICAL: Denies any joint pain, swelling, or any muscle pain. ENDOCRINE: Denies any polyuria or polydipsia. The rest of the 14-point review of systems is negative. 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 History of Any Multi-Drug Resistant Organisms: None Reported Past Surgical History: Tonsillectomy Additional Past Surgical History / Comment(s): biopsys of tumors on thyroid and spot in his lung. Past Anesthesia/Blood Transfusion Reactions: No Reported Reaction Past Psychological History: Anxiety, Depression, Panic Disorder Additional Psychological History / Comment(s): been on disability for 8-10 years. Smoking Status: Never smoker Past Alcohol Use History: None Reported, Abuse Past Drug Use History: None Reported - Past Family History Mother Family Medical History: COPD Medications and Allergies Home Medications Medication Instructions Recorded Confirmed Type ALPRAZolam [Xanax] 1 mg PO BID@0000,0800 08/15/16 04/15/20 History Propranolol [Inderal] 40 mg PO TID@0400,1000,1600 01/19/17 04/15/20 History Desvenlafaxine [Pristiq ER] 100 mg PO HS@0000 02/25/20 04/15/20 History Loratadine [Claritin] 10 mg PO DAILY@0800 02/25/20 04/15/20 History Ondansetron HCl [Zofran] 8 mg PO Q8H PRN 02/25/20 04/15/20 History buPROPion XL [Wellbutrin XL] 450 mg PO HS #90 tab.er.24h 03/10/20 04/15/20 Rx lamoTRIgine [LaMICtal] 100 mg PO HS #45 tab 03/10/20 04/15/20 Rx Ziprasidone [Geodon] 80 mg PO BID@0830,1830 04/15/20 04/15/20 History lamoTRIgine [LaMICtal] 50 mg PO DAILY 04/15/20 04/15/20 History Allergies Allergy/AdvReac Type Severity Reaction Status Date / Time No Known Allergies Allergy Verified 04/15/20 20:22 Physical Exam Vitals: Vital Signs Temp Pulse Pulse Pulse Resp BP BP 04/16/20 10:19 98.1 F 80 20 136/63 04/16/20 00:38 97.8 F 59 L 18 127/71 04/15/20 23:11 97.8 F 65 18 119/88 04/15/20 20:12 98.0 F 76 18 140/92 Pulse Ox 04/16/20 10:19 04/16/20 00:38 98 04/15/20 23:11 98 04/15/20 20:12 97 Intake and Output 04/16/20 04/16/20 04/16/20 06:59 14:59 22:59 Other: Weight 123.468 kg PHYSICAL EXAMINATION: GENERAL: The patient is alert and oriented x3, not in any acute distress. Well developed, well nourished. HEENT: Pupils are round and equally reacting to light. EOMI. No scleral icterus. No conjunctival pallor. Normocephalic, atraumatic. No pharyngeal erythema. No thyromegaly. CARDIOVASCULAR: S1 and S2 present. No murmurs, rubs, or gallops. PULMONARY: Chest is clear to auscultation, no wheezing or crackles. ABDOMEN: Soft, nontender, nondistended, normoactive bowel sounds. No palpable organomegaly. MUSCULOSKELETAL: No joint swelling or deformity. EXTREMITIES: No cyanosis, clubbing, or pedal edema. NEUROLOGICAL: Gross neurological examination did not reveal any focal deficits. SKIN: does have left great toe deformity with redness local is of temperature and some pain.. Results CBC & Chem 7: 04/16/20 08:39 04/16/20 08:39 Labs: Abnormal Lab Results - Last 24 Hours (Table) 04/15/20 04/15/20 04/16/20 Range/Units 20:30 20:30 08:39 WBC 11.0 H (3.8-10.6) k/uL Eosinophils # 0.9 H (0-0.7) k/uL Glucose (74-99) mg/dL Triglycerides (<150) mg/dL Urine Blood Trace H (Negative) Urine Mucus Rare H (None) /hpf U Benzodiazepines Scrn Detected H (NotDetected) 04/16/20 Range/Units 08:39 WBC (3.8-10.6) k/uL Eosinophils # (0-0.7) k/uL Glucose 103 H (74-99) mg/dL Triglycerides 246 H (<150) mg/dL Urine Blood (Negative) Urine Mucus (None) /hpf U Benzodiazepines Scrn (NotDetected) Assessment and Plan Plan: Cellulitis of the left toe: Patient will be started on Keflex and the will follow clinically. Patient will follow with podiatry as an outpatient -Gastroesophageal reflux disease probably because of Motrin patient will be started on Protonix patient already has Maalox -History of thyroid tumor which turned out to be benign -Depression management as per primary service -Hypertension -Leukocytosis: Secondary to cellulitis.
[2020-04-16] MEDS: CEPHALEXIN 500 MG CAP PO SCH ×2 (17:06→20:42)
[2020-04-16] MEDS: PANTOPRAZOLE 40 MG TABLET PO SCH (17:08)
[2020-04-16 17:47] LABS: Hemoglobin A1C 5.5 % (4.0-6.0)
[2020-04-17] MEDS: IBUPROFEN 800 MG TAB PO PRN ×3 (03:58→20:42)
[2020-04-17] MEDS: PROPRANOLOL 40 MG TAB PO SCH ×3 (03:58→16:50)
[2020-04-17] MEDS: ACETAMINOPHEN TAB 500 MG TAB PO PRN ×3 (03:59→18:43)
[2020-04-17] MEDS: DIPHENOX-ATROP 2.5-0.025 MG 1 EACH TAB PO PRN (09:03)
[2020-04-17] MEDS: ALPRAZolam 1 MG TAB PO PRN ×2 (09:04→23:10)
[2020-04-17] MEDS: LORATADINE 10 MG TAB PO SCH (09:04)
[2020-04-17] MEDS: lamoTRIgine 25 MG TAB PO SCH (09:04)
[2020-04-17] MEDS: PANTOPRAZOLE 40 MG TABLET PO SCH (09:04)
[2020-04-17] MEDS: ZIPRASIDONE 80 MG CAP PO SCH ×2 (09:04→18:43)
[2020-04-17] MEDS: CEPHALEXIN 500 MG CAP PO SCH ×3 (09:04→20:43)
--- NOTE | 2020-04-17 17:58 | P.PN ---
Progress Note - Text Progress Note Date: 04/17/20 Subjective: Patient was seen today as a cross coverage for Dr. Christy. The patient was evaluated, chart reviewed, case discussed with the treatment team. Patient reported good sleep last night. Appetite was reported as "fair ". Patient has been going to groups and other unit activities. The patient is compliant with his medications and denies any adverse reactions. Patient reports is still feeling depressed and have suicidal ideation. He reports is still thinking about plan to shoot himself but he feels safe in the hospital. He has no current intent or plan to hurt himself. Reports sometimes feeling paranoid, and he continued to hear voices that distant voices with muffled sounds. Denies any severe anger problems or mood swings. Discussed medication with the patient and he is interested to increase Lamictal for better mood stabilization. He also requested to increase Pristiq after 400 mg, but he was educated about no proof that higher dose would add more benefits. Objective: Vitals has been reviewed. Mental status examination; Appearance: The patient appears stated age, adequately groomed and dressed, no specific features. Gait/posture: Normal gait, Normal arm swinging: No abnormal movements. Attitude and behavior: engaged, cooperative, eye contact. Motor activity: Normal psychomotor activity Speech: Normal rate, tone. Mood: Anxious, depressed Affect: Constricted Thought form: goal-directed, linear, coherent. Thought content: Non-delusional, reports suicidal thoughts, denies homicidal thoughts, denies intentions or plans. Reports paranoid ideation Perception: Denies visual hallucinations. Reports auditory hallucinations Attention: No impairment. Orientation: Patient patient was fully oriented to time place person and situation. Insight: Patient has fair insight about his psychiatric disorder. Judgment: Patient has fair judgment about his psychiatric treatment. Assessment: Major depressive disorder, recurrent, severe, with psychotic features. Rule out schizoaffective disorder. Plan: Continue inpatient level of care due to need for further stabilization and monitoring. Precautions: Continue 15 minutes check for safety. Consider medical consultation if any acute medical issues arise. Provide the patient individual, group therapy, substance use disorder counseling to give better insight and learn coping skills. Continue follow-up with the patient daily to monitor progress of depression and psychotic symptoms.. Medications: Continue Lamictal and decrease the dose to 100 mg twice daily for mood stabilization. Continue Pristiq 100 mg daily, and Wellbutrin 450 mg daily for depression symptoms. Continue Geodon 80 mg daily for mood stabilization and psychotic symptoms. Continue as needed medication for agitation and anxiety. Continue non-psychiatric medications including Zofran, Protonix, Inderal, and loratadine. Discharge patient to OUTPATIENT services upon a stabilization
[2020-04-17] MEDS: buPROPion XL 150 MG TAB.ER.24H PO SCH (20:43)
[2020-04-17] MEDS: lamoTRIgine 100 MG TAB PO SCH (20:43)
[2020-04-17] MEDS: DESVENLAFAXINE SUCCINATE 50 MG TAB.ER.24H PO SCH (22:38)
[2020-04-18] MEDS: ACETAMINOPHEN TAB 500 MG TAB PO PRN ×3 (03:28→23:02)
[2020-04-18] MEDS: PROPRANOLOL 40 MG TAB PO SCH ×3 (05:45→17:18)
[2020-04-18] MEDS: ZIPRASIDONE 80 MG CAP PO SCH ×2 (09:18→18:33)
[2020-04-18] MEDS: CEPHALEXIN 500 MG CAP PO SCH ×3 (09:18→20:34)
[2020-04-18] MEDS: PANTOPRAZOLE 40 MG TABLET PO SCH (09:18)
[2020-04-18] MEDS: LORATADINE 10 MG TAB PO SCH (09:18)
[2020-04-18] MEDS: lamoTRIgine 100 MG TAB PO SCH ×2 (09:18→20:34)
[2020-04-18] MEDS: IBUPROFEN 800 MG TAB PO PRN ×2 (09:23→18:33)
[2020-04-18] MEDS: ALPRAZolam 1 MG TAB PO PRN ×2 (10:24→23:03)
--- NOTE | 2020-04-18 15:56 | P.PN ---
Progress Note - Text Progress Note Date: 04/18/20 Subjective: Patient was seen today as a cross coverage for Dr. Christy. The patient was evaluated, chart reviewed, case discussed with the treatment team. Patient reports continued to feel the same that he still feels depressed, with intermittent suicidal thoughts. He reports feeling paranoid and is still hearing voices but denies any commanding hallucinations. Patient reports better sleep and appetite and he continues to attend groups and other unit activities. He is taking his psychiatric medications and he denies any current side effects. Objective: Mental status examination; Appearance: The patient appears stated age, adequately groomed and dressed, no specific features. Gait/posture: Normal gait, Normal arm swinging: No abnormal movements. Attitude and behavior: engaged, cooperative, eye contact. Motor activity: Normal psychomotor activity Speech: Normal rate, tone. Mood: Anxious, depressed Affect: Constricted Thought form: goal-directed, linear, coherent. Thought content: Non-delusional, reports suicidal thoughts, denies homicidal thoughts, denies intentions or plans. Reports paranoid ideation Perception: Denies visual hallucinations. Reports auditory hallucinations Attention: No impairment. Orientation: Patient patient was fully oriented to time place person and situation. Insight: Patient has fair insight about his psychiatric disorder. Judgment: Patient has fair judgment about his psychiatric treatment. Assessment: Major depressive disorder, recurrent, severe, with psychotic features. Rule out schizoaffective disorder. Plan: Continue inpatient level of care due to need for further stabilization and monitoring. Precautions: Continue 15 minutes check for safety. Consider medical consultation if any acute medical issues arise. Provide the patient individual, group therapy, substance use disorder counseling to give better insight and learn coping skills. Continue follow-up with the patient daily to monitor progress of depression and psychotic symptoms.. Medications: Continue Lamictal 100 mg twice daily for mood stabilization. Continue Pristiq 100 mg daily, and Wellbutrin 450 mg daily for depression symptoms. Continue Geodon 80 mg daily for mood stabilization and psychotic symptoms. Continue as needed medication for agitation and anxiety. Continue non-psychiatric medications including Zofran, Protonix, Inderal, and loratadine. Discharge patient to OUTPATIENT services upon a stabilization
[2020-04-18] MEDS: DIPHENOX-ATROP 2.5-0.025 MG 1 EACH TAB PO PRN (18:33)
[2020-04-18] MEDS: DESVENLAFAXINE SUCCINATE 50 MG TAB.ER.24H PO SCH (20:34)
[2020-04-18] MEDS: buPROPion XL 150 MG TAB.ER.24H PO SCH (20:34)
[2020-04-19] MEDS: PROPRANOLOL 40 MG TAB PO SCH ×3 (03:52→16:33)
[2020-04-19] MEDS: IBUPROFEN 800 MG TAB PO PRN ×2 (06:23→18:43)
[2020-04-19] MEDS: ACETAMINOPHEN TAB 500 MG TAB PO PRN ×3 (06:24→21:37)
[2020-04-19] MEDS: CEPHALEXIN 500 MG CAP PO SCH ×3 (09:25→21:37)
[2020-04-19] MEDS: lamoTRIgine 100 MG TAB PO SCH ×2 (09:25→21:37)
[2020-04-19] MEDS: PANTOPRAZOLE 40 MG TABLET PO SCH (09:25)
[2020-04-19] MEDS: LORATADINE 10 MG TAB PO SCH (09:25)
[2020-04-19] MEDS: ZIPRASIDONE 80 MG CAP PO SCH ×2 (09:25→18:43)
[2020-04-19] MEDS: ALPRAZolam 1 MG TAB PO PRN ×2 (09:26→21:37)
--- NOTE | 2020-04-19 15:02 | P.PN ---
Progress Note - Text Progress Note Date: 04/19/20 Clinical Problems: Suicidal ideation (resolved), major depressive disorder recurrent severe with psychotic features, rule out schizoaffective disorder Interim history: I reviewed the medical record, interviewed the patient and discussed his treatment and treatment plan during team meeting. He is feeling "better" and denied experiencing suicidal thoughts. He is glad that he decided to come to the hospital rather than act on his suicidal thoughts. We talked about his concerns particularly the loss of his long-term psychiatrist and the uncertain status of his long-term therapist. He is "pretty sure" that his therapist will remain in this area and he will be able to continue seeing her when she relocates to another clinic. We talked about [facility] as an option. He had a negative experience in the past but would consider their services if he could continue meeting with this therapist and with a private psychiatrist. The covering psychiatrist increase Lamictal to 200 mg daily over the weekend. He denied side effects increased dose. Mental status exam: He presented as a moderately obese casually groomed 54-year-old male who was pleasant on approach. He made eye contact and attended the interview. He had a blunted but bright facial expression. He is alert and oriented to person, place and time. He showed slight psychomotor retardation but no abnormal movements. Her speech was spontaneous and consistent with his mood. His affect was blunted but bright and appropriate. He smiled intermittently during the interview. He denied suicidal ideation or wishes. He denied currently feeling hopeless, helpless or worthless. He did not talk about his chronic paranoid ideation and delusional beliefs about the FBI. His thinking was concrete but his associations were coherent and logical. He denied hallucinations and did not appear to be responding to inter nal stimuli. Assessment: He appears much improved from admission and is denying suicidal ideation, intent or plan. Plan: Continue inpatient treatment. Since precautions. Continue Xanax 1 mg by mouth twice a day when necessary for anxiety, Wellbutrin XL 450 mg daily, Pristiq ER 100 mg at bedtime and Lamictal 100 mg by mouth twice a day. Encourage participation in therapeutic groups and activities. Arrange for him to speak with the [facility] liaison about [facility] services.
[2020-04-19] MEDS: buPROPion XL 150 MG TAB.ER.24H PO SCH (21:36)
[2020-04-19] MEDS: DESVENLAFAXINE SUCCINATE 50 MG TAB.ER.24H PO SCH (21:36)
[2020-04-20] MEDS: IBUPROFEN 800 MG TAB PO PRN ×3 (02:39→16:08)
[2020-04-20] MEDS: ACETAMINOPHEN TAB 500 MG TAB PO PRN ×3 (02:40→16:09)
[2020-04-20] MEDS: PROPRANOLOL 40 MG TAB PO SCH ×3 (06:30→15:54)
[2020-04-20] MEDS: ZIPRASIDONE 80 MG CAP PO SCH ×2 (08:34→18:45)
[2020-04-20] MEDS: CEPHALEXIN 500 MG CAP PO SCH ×3 (08:34→20:35)
[2020-04-20] MEDS: LORATADINE 10 MG TAB PO SCH (08:34)
[2020-04-20] MEDS: ALPRAZolam 1 MG TAB PO PRN ×2 (08:35→20:37)
[2020-04-20] MEDS: PANTOPRAZOLE 40 MG TABLET PO SCH (08:35)
[2020-04-20] MEDS: lamoTRIgine 100 MG TAB PO SCH ×2 (08:35→20:36)
[2020-04-20] MEDS: DIPHENOX-ATROP 2.5-0.025 MG 1 EACH TAB PO PRN ×2 (10:15→18:46)
--- NOTE | 2020-04-20 13:14 | P.PN ---
Progress Note - Text Progress Note Date: 04/20/20 Clinical Problems: Suicidal ideation (resolved), major depressive disorder recurrent severe with psychotic features, rule out schizoaffective disorder Interim history: I reviewed the medical record, interviewed the patient and discussed his treatment and treatment plan during team meeting. He again stated that he is feeling much better but he does not feel he is "ready" for discharge. When I asked him to explain himself he replied that he is "just not there yet." However, he denied experiencing thoughts of or suicide. He has continued concern about returning to his home which is a room and board suited best for transient residence. He alleged that he has been looking for alternatives and his name on the waiting list for senior citizen apartments. Mental status exam: He presented as a moderately obese casually groomed 54-year-old male who was pleasant on approach. He made eye contact and attended the interview. He had a bright facial expression. He is alert and oriented to person, place and time. He showed slight psychomotor retardation but no abnormal movements. Her speech was spontaneous and consistent with his mood. His affect was but bright and appropriate. He smiled intermittently during the interview. He denied suicidal ideation or wishes. He denied currently feeling hopeless, helpless or worthless. He did not talk about his chronic paranoid ideation and delusional beliefs about the [employer]. His thinking was concrete but his associations were coherent and logical. He denied hallucinations and did not appear to be responding to internal stimuli. Assessment: He appears much improved from admission and is denying suicidal ideation, intent or plan. Plan: Continue inpatient treatment. Plan for discharge on 04/21/2020. Since precautions. Continue Xanax 1 mg by mouth twice a day when necessary for anxiety, Wellbutrin XL 450 mg daily, Pristiq ER 100 mg at bedtime and Lamictal 100 mg by mouth twice a day. Encourage participation in therapeutic groups and activities. Arrange for him to speak with the [facility] liaison about [facility] services.
[2020-04-20] MEDS: buPROPion XL 150 MG TAB.ER.24H PO SCH (20:36)
[2020-04-20] MEDS: DESVENLAFAXINE SUCCINATE 50 MG TAB.ER.24H PO SCH (21:05)
[2020-04-21] MEDS: ACETAMINOPHEN TAB 500 MG TAB PO PRN ×3 (00:39→16:30)
[2020-04-21] MEDS: MAG HYDROX/AL HYDROX/SIMETH 30 ML CUP PO PRN (00:39)
[2020-04-21] MEDS: IBUPROFEN 800 MG TAB PO PRN ×3 (04:12→21:34)
[2020-04-21] MEDS: PROPRANOLOL 40 MG TAB PO SCH ×3 (04:13→16:28)
[2020-04-21] MEDS: DIPHENOX-ATROP 2.5-0.025 MG 1 EACH TAB PO PRN ×3 (05:23→21:32)
[2020-04-21] MEDS: PANTOPRAZOLE 40 MG TABLET PO SCH (08:25)
[2020-04-21] MEDS: ZIPRASIDONE 80 MG CAP PO SCH ×2 (08:25→19:01)
[2020-04-21] MEDS: lamoTRIgine 100 MG TAB PO SCH ×2 (08:25→21:30)
[2020-04-21] MEDS: CEPHALEXIN 500 MG CAP PO SCH ×3 (08:25→21:30)
[2020-04-21] MEDS: LORATADINE 10 MG TAB PO SCH (08:25)
[2020-04-21] MEDS: ALPRAZolam 1 MG TAB PO PRN (08:27)
[2020-04-21] MEDS: buPROPion XL 150 MG TAB.ER.24H PO SCH (21:29)
[2020-04-21] MEDS: DESVENLAFAXINE SUCCINATE 50 MG TAB.ER.24H PO SCH (21:30)
[2020-04-21] MEDS ORDERED: ALPRAZolam 1 MG TAB PO STA (22:21)
[2020-04-22] MEDS: ACETAMINOPHEN TAB 500 MG TAB PO PRN ×3 (04:45→16:01)
[2020-04-22] MEDS: DIPHENOX-ATROP 2.5-0.025 MG 1 EACH TAB PO PRN ×3 (04:45→21:11)
[2020-04-22] MEDS: PROPRANOLOL 40 MG TAB PO SCH ×3 (04:45→16:00)
[2020-04-22] MEDS: ZIPRASIDONE 80 MG CAP PO SCH ×2 (09:05→18:28)
[2020-04-22] MEDS: lamoTRIgine 100 MG TAB PO SCH ×2 (09:05→21:11)
[2020-04-22] MEDS: PANTOPRAZOLE 40 MG TABLET PO SCH (09:05)
[2020-04-22] MEDS: LORATADINE 10 MG TAB PO SCH (09:05)
[2020-04-22] MEDS: CEPHALEXIN 500 MG CAP PO SCH ×3 (09:05→21:11)
[2020-04-22] MEDS: ALPRAZolam 1 MG TAB PO PRN ×2 (09:07→21:11)
[2020-04-22 09:23] VITALS: BMI 41.2
[2020-04-22] MEDS: IBUPROFEN 800 MG TAB PO PRN ×2 (14:46→21:11)
--- NOTE | 2020-04-22 15:21 | P.PN ---
Progress Note - Text Progress Note Date: 04/22/20 Clinical Problems: Suicidal ideation (resolved), major depressive disorder recurrent severe with psychotic features, rule out schizoaffective disorder Interim history: I reviewed the medical record, interviewed the patient and discussed his treatment and treatment plan during team meeting. He denied having thoughts of suicide. He is happy to learn that he has a appointment with his therapist and she has also agreed to continue working with him when she changes positions. He declined [facility] services because he would not be able to continue seeing his current therapist. He was resistant discharge. I explained that I cannot keep him beyond tomorrow and he will leave the hospital tomorrow. Mental status exam: He presented as a moderately obese casually groomed 54-year-old male who was pleasant on approach. He made eye contact and attended the interview. He had a distressed facial expression. He is alert and oriented to person, place and time. He showed slight psychomotor retardation but no abnormal movements. Her speech was spontaneous and consistent with his mood. His affect was blunted and depressed. He denied suicidal ideation or wishes. He denied currently feeling hopeless, helpless or worthless. He did not talk about his chronic paranoid ideation and delusional beliefs about the [employer]. His thinking was concrete but his associations were coherent and logical. He denied hallucinations and did not appear to be responding to internal stimuli. Assessment: He appears much improved from admission and is denying suicidal ideation, intent or plan. He is much improved from admission. Plan: Discharge on 04/23/2020. Continue safety precautions precautions. Continue Xanax 1 mg by mouth twice a day when necessary for anxiety, Wellbutrin XL 450 mg daily, Pristiq ER 100 mg at bedtime and Lamictal 100 mg by mouth twice a day. Encourage participation in therapeutic groups and activities.
[2020-04-22] MEDS: buPROPion XL 150 MG TAB.ER.24H PO SCH (21:11)
[2020-04-22] MEDS: DESVENLAFAXINE SUCCINATE 50 MG TAB.ER.24H PO SCH (21:54)
[2020-04-23] MEDS: MAG HYDROX/AL HYDROX/SIMETH 30 ML CUP PO PRN (01:53)
[2020-04-23] MEDS: ACETAMINOPHEN TAB 500 MG TAB PO PRN (04:43)
[2020-04-23] MEDS: PROPRANOLOL 40 MG TAB PO SCH ×2 (04:44→10:04)
[2020-04-23 06:37] VITALS: TEMP 97.6
[2020-04-23] MEDS: LORATADINE 10 MG TAB PO SCH (08:37)
[2020-04-23] MEDS: ZIPRASIDONE 80 MG CAP PO SCH (08:37)
[2020-04-23] MEDS: lamoTRIgine 100 MG TAB PO SCH (08:37)
[2020-04-23] MEDS: PANTOPRAZOLE 40 MG TABLET PO SCH (08:37)
[2020-04-23] MEDS: DIPHENOX-ATROP 2.5-0.025 MG 1 EACH TAB PO PRN (08:39)
[2020-04-23] MEDS: ALPRAZolam 1 MG TAB PO PRN (08:40)
[2020-04-23] MEDS: IBUPROFEN 800 MG TAB PO PRN (08:40)
[2020-04-23 10:06] VITALS: BP 129/66; PULSE 72; RESP 20
--- NOTE | 2020-04-23 15:01 | P.DS ---
Providers Date of admission: 04/15/20 22:40 Attending physician: Mor Christy MD Consults: 04/15/20 23:06 Consult Physician Routine Consulting Provider: Rufino Uriostegui Consult Reason/Comments: H & P and medical care Do you want consulting provider notified?: Yes Primary care physician: Rufino Haddad Moody - Discharge Diagnosis(es) (1) Major depressive disorder, recurrent, severe with psychotic features Status: Chronic Priority: High (2) Suicidal ideation Status: Resolved Priority: Low Hospital Course: HISTORY: He is a 55-year-old male well known to the psychiatric unit from prior admissions. He was last discharged from the unit on 03/10/2020. He presented to the unit voluntarily with complaints of increasing depression and suicidal ideation. He alleged that he is "stockpiling" aspirin and Tylenol to overdose and alleged that his accumulated 1500 pills of both medications. He decided to come to the hospital rather than overdose on the medications. He also described a chronic and ongoing belief that he is subject of an FBI investigation. 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 He believes he is under investigation by [employer] for his work with some of the patients. He is vague about this belief and would not discuss the details or specifics. He is distressed that his outpatient psychiatrist, Dr. Penny, is leaving. Dr. Penny has been his outpatient psychiatrist for the last 8 years. Since his last appointment with Dr. Penny he has been "searching" for another psychiatrist and alleged that he found a psychiatrist in [place], Dr. Smith. He is also distressed that the [facility] is closing the outpatient clinic. When last met with his therapist, Zina, she told him that she would may not be able to continue treating him because she was uncertain of her status with the [facility] but they may continue when she is working with a different agency. Similar to Dr. Penny he has been working with [facility] for over 8 years. He describes fluctuating levels of depression where he would be depressed for hours to days. He denied experiencing periods of sustained irritability or elevated mood suggestive of john or hypomania. Other than the above chronic delusional belief is well documented in past admission assessments, he denied experiencing such psychotic symptoms as auditory, visual or olfactory hallucinations, ideas reference, thought insertion etc. He complained of chronic and persistent anxiety that, like the depression, fluctuates in intensity. He denied the use of alcohol or drugs. His UDS was only positive for benzodiazepines (he is prescribed Xanax). He is had multiple admissions to this psychiatric unit. This would be his sixth since August 2016. The diagnoses from his last discharge included major depressive disorders recurrent, generalized anxiety disorder and ADHD HOSPITAL COURSE: We admitted him in psychiatric unit under the care of this loan underwriter. We provided a comprehensive biopsychosocial assessment. The partner management consultant shirt maker completed the initial physical exam and medical history and diagnosed cellulitis of the right foot, GERD, hypertension and leukocytosis secondary to cellulitis. He anxious treated for cellulitis with K Flexeril 10 mg by mouth 3 times a day. We continued his outpatient medications including health prazepam 1 mg by mouth twice a day, Pristiq 100 mg at bedtime, Geodon 80 mg twice a day and Wellbutrin XL 450 mg at bedtime. We increased the Lamictal to 100 mg twice a day. He attributed his depression and suicidal thoughts to multiple issues but the most significant of which was the loss of his long-term psychiatrist (who is moving out of state), the closure of the [facility]'s outpatient mental health clinic and a possible divorce of his long-term psychotherapist. He declined referral to community mental health citing the loss of his long-term psychotherapist. The social sciences lecturer confirmed that he follow-up appointment and confirmed that he may continue to meet with her when she transfers to a community clinic position. His mood gradually improved and he denied suicidal ideation. He participated in therapeutic groups and activities. He posed no management problem and had no episodes. Dyscontrol. MENTAL STATUS ON DISCHARGE: He presented as a moderately obese 55-year-old male who was pleasant on approach. He made eye contact and attended to interview. He had no distinction features are prominent physical abilities. He had a blunted but bright facial expression. He was alert and oriented to person, place and time. He showed slight psychomotor retardation but no abnormal involuntary movements. Her speech was spontaneous with normal rate, rhythm and volume. His affect was blunted but stable and appropriate. He denied suicidal ideation or wishes. He denied homicidal ideation. He denied ideas reference, paranoid ideation or delusions. His thinking was concrete but his associations were coherent, logical and goal directed. He denied hallucinations did not appear to be responding to internal stimuli. DISPOSITION: He an initial appointment with a daily psychiatrist in [place] on 04/29/2020. He also has a follow-up appointment with his outpatient therapist. We'll continue his outpatient medications including Xanax 1 mg by mouth twice a day, Pristiq ER 100 mg at bedtime, Wellbutrin XL 400 mg at bedtime, Geodon 80 mg twice a day and Lamictal 100 mg twice a day Plan - Discharge Summary Discharge Rx Participant: No New Discharge Prescriptions: New lamoTRIgine [LaMICtal] 100 mg PO DAILY #30 tab Continue ALPRAZolam [Xanax] 1 mg PO BID@0000,0800 Propranolol [Inderal] 40 mg PO TID@0400,1000,1600 Loratadine [Claritin] 10 mg PO DAILY@0800 Desvenlafaxine [Pristiq ER] 100 mg PO HS@0000 Ondansetron HCl [Zofran] 8 mg PO Q8H PRN PRN Reason: Nausea And Vomiting lamoTRIgine [LaMICtal] 100 mg PO HS #45 tab buPROPion XL [Wellbutrin XL] 450 mg PO HS #90 tab.er.24h Ziprasidone [Geodon] 80 mg PO BID@0830,1830 Discontinued lamoTRIgine [LaMICtal] 50 mg PO DAILY Discharge Medication List ALPRAZolam [Xanax] 1 mg PO BID@0000,0800 08/15/16 [History] Propranolol [Inderal] 40 mg PO TID@0400,1000,1600 01/19/17 [History] Desvenlafaxine [Pristiq ER] 100 mg PO HS@0000 02/25/20 [History] Loratadine [Claritin] 10 mg PO DAILY@0800 02/25/20 [History] Ondansetron HCl [Zofran] 8 mg PO Q8H PRN 02/25/20 [History] buPROPion XL [Wellbutrin XL] 450 mg PO HS #90 tab.er.24h 03/10/20 [Rx] lamoTRIgine [LaMICtal] 100 mg PO HS #45 tab 03/10/20 [Rx] Ziprasidone [Geodon] 80 mg PO BID@0830,1830 04/15/20 [History] lamoTRIgine [LaMICtal] 100 mg PO DAILY #30 tab 04/23/20 [Rx] Follow up Appointment(s)/Referral(s): intake,intake [Other] - 04/29/20 10:00 am Rufino Uriostegui MD [Primary Care Provider] - 1-2 days Patient Instructions/Handouts: Generalized Anxiety Disorder (ED), Help Prevent Suicide (DC) Activity/Diet/Wound Care/Special Instructions: Activity and diet as tolerated. Avoid the use of street drugs and alcohol. Take all medications as prescribed. When you are in need of refills on your medications please contact your medical provider and/or outpatient psychiatrist to have this done. Please go to scheduled outpatient appointment for aftercare treatment. If symptoms return or become worse, call the crisis line at and/or go to the nearest emergency room for evaluation Discharge Disposition: HOME SELF-CARE
== END 2020-04-23 12:09 | disposition home or self-care (01) | DRG 885 ==
LOC: EC 20:10 → 3MHU 22:40
PROVIDERS: ADMIT Psychiatry & Neurology Psychiatry; ATTEND Psychiatry & Neurology Psychiatry
DX: F33.3 Major depressive disorder, recurrent, severe with psychotic symptoms (principal); R45.851 Suicidal ideations; L03.115 Cellulitis of right lower limb; Z68.41 Body mass index [BMI] 40.0-44.9, adult; E66.01 Morbid (severe) obesity due to excess calories; F41.1 Generalized anxiety disorder; F90.9 Attention-deficit hyperactivity disorder, unspecified type; I10 Essential (primary) hypertension; K21.9 Gastro-esophageal reflux disease without esophagitis; E07.9 Disorder of thyroid, unspecified; D34 Benign neoplasm of thyroid gland; R91.8 Other nonspecific abnormal finding of lung field; Z79.899 Other long term (current) drug therapy; Z82.5 Family history of asthma and other chronic lower respiratory diseases
CPT/HCPCS: 80053; 80061; 80306; 81001; 82075; 83036; 84443; 85025; 99285

== ENCOUNTER → 2021-10-26 | Outpatient (CLI) | payer MEDICARE ==
--- NOTE | 2021-10-26 14:17 | US ---
EXAMINATION TYPE: US thyroid st tissue head/neck DATE OF EXAM: 10/26/2021 COMPARISON: NONE CLINICAL HISTORY: E04.1 NONTOXIC SINGLE THYROID NODULE. Follow up to prior exams, history of nodules with benign biopsy results GLAND SIZE: Right Lobe: 5.5 x 2.0 x 2.4 cm Overall Parenchyma: heterogenous Left Lobe: 4.7 x 2.1 x 1.9 cm Overall Parenchyma: heterogeneous Isthmus Thickness: 0.4 cm NODULES RIGHT: # of nodules measured on right: 2 1. 3.5 X 3.0 x 2.2 cm, lower mid, solid or almost completely solid, hypoechoic nodule, which is wi duran than tall, with lobulated or irregular margins, without echogenic foci. TR 4 Prior size: 3.2 x 2.9 x 2.4 cm 2. 06 X 0.7 x 0.4 cm, mid medial, solid or almost completely solid, hypoechoic nodule, which is wid er than tall, with lobulated or irregular margins, without echogenic foci. LEFT: # of nodules measured on left: 1 1. 2.1 X 1.4 x 1.0 cm, mid lateral, mixed cystic and solid, hypoechoic nodule, which is wider than tall, with ill-defined margins, without echogenic foci. Prior size: 1.8 x 1.4 x 1.1 cm ISTHMUS: # of nodules measured in the isthmus: 0 Bilateral neck scanned, Lymph nodes bilateral neck largest measured. Largest Right neck lymph node me asured 0.9 x 1.0 x 0.4cm. Largest on Left neck 1.5 x 0.9 x 0.6cm IMPRESSION: Moderately suspicious nodule right lobe thyroid. This is been previously biopsied. 2017 ACR TI-RADS LEVEL: TR-RADS 4 - Moderately Suspicious: Follow if > 1 cm, FNA if > 1.5 cm *Highest TI-RADS level nodule reported
== END | disposition home or self-care (01) ==
LOC: RADUSWWP 13:15
PROVIDERS: ATTEND Family Medicine
DX: E04.2 Nontoxic multinodular goiter (principal)
CPT/HCPCS: 76536

== ENCOUNTER 2025-04-17 02:10 | Inpatient (IN) | payer MEDICARE ==
[2025-04-17 02:50] LABS: Glucose,Whole Blood 108 mg/dL (70-110)
--- NOTE | 2025-04-17 03:00 | ED ---
General Adult HPI - General Source: patient, RN notes reviewed, old records reviewed Mode of arrival: ambulatory Limitations: no limitations <Isaiah Potter - Last Filed: 04/17/25 06:47> <Eben Cervantes - Last Filed: 04/17/25 11:17> - General Chief complaint: Psychiatric Symptoms Stated complaint: SI Time Seen by Provider: 04/17/25 02:25 - History of Present Illness Initial comments: 60-year-old male presents as a suicide attempt via overdose. For the last 2 days has been taking essentially an unknown number of propranolol, Naprosyn, Tylenol, ibuprofen, Xanax tablets. Unknown strength on the pain meds. States he took possibly 10 tablets of 1 mg Xanax over the last 2 days. States he also thinks he took probably 3 to 4 tablets of 60 mg propranolol today. Has been having nausea and vomiting for a few hours. Unknown if he threw up any of the pills. States he has generalized weakness. States he took them with the intent of overdosing. Denies any chest pain, shortness of breath, abdominal pain. Endorses nausea. Denies diarrhea. Presents for further evaluation at this time. Patient was petitioned by police. (Isaiah Potter) - Related Data Home Medications Medication Instructions Recorded Confirmed ALPRAZolam [Xanax] 1 mg PO BID@0000,0800 08/15/16 04/15/20 Propranolol [Inderal] 40 mg PO TID@0400,1000,1600 01/19/17 04/15/20 Desvenlafaxine [Pristiq ER] 100 mg PO HS@0000 02/25/20 04/15/20 Loratadine [Claritin] 10 mg PO DAILY@0800 02/25/20 04/15/20 ondansetron HCL [Zofran] 8 mg PO Q8H PRN 02/25/20 04/15/20 Ziprasidone [Geodon] 80 mg PO BID@0830,1830 04/15/20 04/15/20 Previous Rx's Medication Instructions Recorded buPROPion XL [Wellbutrin XL] 450 mg PO HS #90 tab.er.24h 03/10/20 lamoTRIgine [LaMICtal] 100 mg PO HS #45 tab 03/10/20 lamoTRIgine [LaMICtal] 100 mg PO DAILY #30 tab 04/23/20 Allergies Allergy/AdvReac Type Severity Reaction Status Date / Time No Known Allergies Allergy Verified 04/15/20 20:22 Review of Systems ROS Other: All systems not noted in ROS Statement are negative. <TariqIsaiah - Last Filed: 04/17/25 06:47> ROS Other: All systems not noted in ROS Statement are negative. <CervantesEben - Last Filed: 04/17/25 11:17> ROS Statement: Those systems with pertinent positive or pertinent negative responses have been documented in the HPI. Review of Systems: CONST: Denies fever EYES: Denies blurry vision ENT: Denies nasal congestion C/V: Denies Chest pain RESP: Denies shortness of breath GI: Denies abdominal pain : Denies dysuria SKIN: Denies rash. MSK: Denies joint pain. 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 History of Any Multi-Drug Resistant Organisms: None Reported Past Surgical History: Tonsillectomy Additional Past Surgical History / Comment(s): biopsys of tumors on thyroid and spot in his lung. Past Anesthesia/Blood Transfusion Reactions: No Reported Reaction Past Psychological History: Anxiety, Depression, Panic Disorder Past Alcohol Use History: None Reported, Abuse Past Drug Use History: None Reported - Past Family History Mother Family Medical History: COPD <Isaiah Potter - Last Filed: 04/17/25 06:47> General Exam Limitations: no limitations <Isaiah Potter - Last Filed: 04/17/25 06:47> - General Exam Comments Initial Comments: General: Appears in no acute distress. HEAD: Normal with no signs of head trauma. EYES: PERRLA, EOMI, conjunctiva normal, no discharge. Pupils are 3 to 4 mm and equal bilaterally. ENT: Hearing grossly intact, normal oropharynx. RESPIRATORY: Clear breath sounds bilaterally. No wheezes, rales, or rhonchi. C/V: Regular rate and rhythm. S1 and S2 auscultated, no edema, peripheral pulses 2+ and intact throughout ABD: Abd is soft, nontender, nondistended EXT: Normal range of motion, no obvious deformity SKIN: No rashes or lesions observed on exposed skin. NEURO: Alert and oriented x 4. No focal deficits. (Isaiah Potter) Course Vital Signs 04/17/25 04/17/25 04/17/25 02:12 03:30 04:00 Temperature 97.9 F Pulse Rate 73 76 83 Respiratory 16 16 17 Rate Blood Pressure 121/75 117/74 121/73 O2 Sat by Pulse 98 97 95 Oximetry 04/17/25 04/17/25 04/17/25 05:00 05:30 07:00 Temperature Pulse Rate 79 82 79 Respiratory 16 20 18 Rate Blood Pressure 106/67 114/77 117/84 O2 Sat by Pulse 97 97 98 Oximetry Medical Decision Making - Lab Data Result diagrams: 04/17/25 02:46 04/17/25 02:46 - EKG Data -: EKG Interpreted by Me <Isaiah Potter - Last Filed: 04/17/25 06:47> - Lab Data Result diagrams: 04/17/25 02:46 04/17/25 02:46 <Eben Cervantes - Last Filed: 04/17/25 11:17> - Medical Decision Making Was pt. sent in by a medical professional or institution (, PA, CONSTRUCTION SUPERINTENDENT, urgent care, hospital, or snf...) When possible be specific @ -No Did you speak to anyone other than the patient for history (EMS, parent, family, police, friend...)? What history was obtained from this source @ -No Did you review nursing and triage notes (agree or disagree)? Why? @ -I reviewed and agree with nursing and triage notes Were old charts reviewed (outside hosp., previous admission, EMS record, old EKG, old radiological studies, urgent care reports/EKG's, snf records)? Report findings @ -Reviewed petition which reiterated the overdose attempt. Differential Diagnosis (chest pain, altered mental status, abdominal pain women, abdominal pain men, vaginal bleeding, weakness, fever, dyspnea, syncope, headache, dizziness, GI bleed, back pain, seizure, CVA, palpatations, mental health, musculoskeletal)? @ -Differential Mental Health Depression, anxiety, bipolar, psychosis, schizophrenia, borderline personality, situational depression, adjustment disorder, behavioral disorder, brain tumor, malingering, substance abuse, encephalopathy, medication reaction, dementia, hy pothyroidism, degenerative neurologic disorder, lupus.... This is not meant to be all-inclusive list. Also includes overdose EKG interpreted by me (3pts min.). @ -As above X-rays interpreted by me (1pt min.). @ -None done CT interpreted by me (1pt min.). @ -None done U/S interpreted by me (1pt. min.). @ -None done What testing was considered but not performed or refused? (CT, X-rays, U/S, lab s)? Why? @ -None What meds were considered but not given or refused? Why? @ -None Did you discuss the management of the patient with other professionals (professionals i.e. , PA, CONSTRUCTION SUPERINTENDENT, lab, RT, psych nurse, director social, junior underwriter, teacher, program officer, family service caseworker)? Give summary @ -Nursing staff will reach out to poison control. Was smoking cessation discussed for >3mins.? @ -No Was critical care preformed (if so, how long)? @ -Yes, 32 minutes Were there social determinants of health that impacted care today? How? (Homelessness, low income, unemployed, alcoholism, drug addiction, herrera sportation, low edu. Level, literacy, decrease access to med. care, senior living, rehab)? @ -No Was there de-escalation of care discussed even if they declined (Discuss DNR or withdrawal of care, Hospice)? DNR status @ -No What co-morbidities impacted this encounter? (DM, HTN, Smoking, COPD, CAD, Cancer, CVA, ARF, Chemo, Hep., AIDS, mental health diagnosis, sleep apnea, morbid obesity)? @ -None Was patient admitted / discharged? Hospital course, mention meds given and route, prescriptions, significant lab abnormalities, going to OR and other pertinent info. @ -Patient presents with overdose attempt. Take unknown exact number of tablets of Xanax, ibuprofen, acetaminophen, Naprosyn, propranolol as well as possibly Lamictal. Story is not always consistent. Vitals are within acceptable limits. Apparently has been taking these tablets over the last 2 days. Will reach out to poison control and obtain overdose workup. Patient in agreement this plan. Suicide precautions ordered. Sitter ordered. We will reach out to poison control for recommendations. EKG shows no signs of acute ischemia.Patient's laboratory studies returned remarkable for leukocytosis of 15. Slightly elevated potassium of 5.2 treated with IV fluids. No EKG changes. Serum alcohol level is undetectable, Tylenol level is undetectable, salicylate level is undetectable. Remainder the labs unremarkable. Poison control reviewed labs with nursing staff as well as EKG. Patient is cleared 6 hours from presentation which will be at 8 AM. No need for long-term observation. Low suspicion that patient actually took what he claims he took. Hemodynamically stable as of 0700. Patient signed out to Dr. Cervantes pending medical clearance and evaluation by EPS. Undiagnosed new problem with uncertain prognosis? @ -No Drug Therapy requiring intensive monitoring for toxicity (Heparin, Nitro, Insulin, Cardizem)? @ -No Were any procedures done? @ -No (Isaiah Potter) Was patient admitted / discharged? Hospital course, mention meds given and route, prescriptions, significant lab abnormalities, going to OR and other pertinent info. @ -Patient was evaluated by EPS and it was determined the patient needed to stay and he signed in. Undiagnosed new problem with uncertain prognosis? @ -No Drug Therapy requiring intensive monitoring for toxicity (Heparin, Nitro, Insulin, Cardizem)? @ -No Were any procedures done? @ -No Diagnosis/symptom? @ -Depression, suicidal ideations Acute, or Chronic, or Acute on Chronic? @ -Acute Uncomplicated (without systemic symptoms) or Complicated (systemic symptoms)? @ -Complicated I think Side effects of treatment? @ -No Exacerbation, Progression, or Severe Exacerbation? @ -No Poses a threat to life or bodily function? How? (Chest pain, [place], MT, pneumonia, PE, COPD, DKA, ARF, appy, cholecystitis, CVA, Diverticulitis, Homicidal, Suicidal, threat to staff... and all critical care pts) @ -No (Eben Cervantes) - Lab Data Lab Results 04/17/25 04/17/25 04/17/25 Range/Units 02:33 02:46 02:46 WBC 15.37 H (4.50-10.00) 10*3/uL RBC 4.64 (4.40-5.60) 10*6/uL Hgb 14.2 (13.0-17.0) g/dL Hct 43.1 (39.6-50.0) % MCV 92.9 (80.0-97.0) fL MCH 30.6 (27.0-32.0) pg MCHC 32.9 (32.0-37.0) g/dL Plt Count 386 (140-440) 10*3/uL MPV 9.9 (9.5-12.2) fL Immature Gran % (Auto) 0.4 % Neutrophils % 79.5 % Lymphocytes % 11.9 % Monocytes % 4.5 % Eosinophils % 2.9 % Basophils % 0.8 % Immature Gran # 0.06 H (0.00-0.04) 10*3/uL Neutrophils # 12.21 H (1.80-7.70) 10*3/uL Lymphocytes # 1.83 (0.90-5.00) 10*3/uL Monocytes # 0.69 (0.20-1.00) 10*3/uL Eosinophils # 0.45 H (0.04-0.35) 10*3/uL Basophils # 0.13 H (0.00-0.10) 10*3/uL Sodium 136 L (137-145) mmol/L Potassium 5.2 H (3.5-5.1) mmol/L Chloride 103 (98-107) mmol/L Carbon Dioxide 24 (22-30) mmol/L Anion Gap 9 mmol/L BUN 20 (9-20) mg/dL Creatinine 0.89 (0.66-1.25) mg/dL Est GFR (CKD-EPI)AfAm >90 (>60 ml/min/1.73 sqM) Est GFR (CKD-EPI)NonAf >90 (>60 ml/min/1.73 sqM) Glucose 104 H (74-99) mg/dL POC Glucose (mg/dL) (70-110) mg/dL POC Glu News Videotape Editor ID Plasma Lactic Acid Evans (0.7-2.0) mmol/L Calcium 9.8 (8.4-10.2) mg/dL Magnesium 2.3 (1.6-2.3) mg/dL Total Bilirubin 0.4 (0.2-1.3) mg/dL Conjugated Bilirubin 0.0 (0.0-0.3) mg/dL Unconjugated Bilirubin 0.1 (0.0-1.1) mg/dL Delta Bilirubin 0.3 H (0.0-0.2) mg/dL AST 28 (17-59) U/L ALT 22 (4-49) U/L Alkaline Phosphatase 55 (38-126) U/L Creatine Kinase (55-170) U/L Total Protein 6.4 (6.3-8.2) g/dL Albumin 4.0 (3.5-5.0) g/dL Lipase 54 (23-300) U/L Urine Color Light Yellow Urine Appearance Clear (Clear) Urine pH 5.5 (5.0-8.0) Ur Specific [place] 1.016 (1.001-1.035) Urine Protein Negative (Negative) Urine Glucose (UA) Negative (Negative) Urine Ketones Negative (Negative) Urine Blood Negative (Negative) Urine Nitrite Negative (Negative) Urine Bilirubin Negative (Negative) Urine Urobilinogen <2.0 (<2.0) mg/dL Ur Leukocyte Esterase Negative (Negative) Salicylates <1.0 mg/dL Urine Opiates Screen Not Detected (NotDetected) Ur Oxycodone Screen Not Detected (NotDetected) Urine Methadone Screen Not Detected (NotDetected) Acetaminophen <10.0 ug/mL Ur Barbiturates Screen Not Detected (NotDetected) U Tricyclic Antidepress Not Detected (NotDetected) Ur Phencyclidine Scrn Not Detected (NotDetected) Ur Amphetamines Screen Not Detected (NotDetected) U Methamphetamines Scrn Not Detected (NotDetected) U Benzodiazepines Scrn Detected H (NotDetected) Urine Cocaine Screen Not Detected (NotDetected) U Marijuana (THC) Screen Not Detected (NotDetected) Serum Alcohol <10 mg/dL Influenza Type A (PCR) (Not Detectd) Influenza Type B (PCR) (Not Detectd) RSV (PCR) (Not Detectd) SARS-CoV-2 (PCR) (Not Detectd) 04/17/25 04/17/25 04/17/25 Range/Units 02:46 02:49 03:30 WBC (4.50-10.00) 10*3/uL RBC (4.40-5.60) 10*6/uL Hgb (13.0-17.0) g/dL Hct (39.6-50.0) % MCV (80.0-97.0) fL MCH (27.0-32.0) pg MCHC (32.0-37.0) g/dL Plt Count (140-440) 10*3/uL MPV (9.5-12.2) fL Immature Gran % (Auto) % Neutrophils % % Lymphocytes % % Monocytes % % Eosinophils % % Basophils % % Immature Gran # (0.00-0.04) 10*3/uL Neutrophils # (1.80-7.70) 10*3/uL Lymphocytes # (0.90-5.00) 10*3/uL Monocytes # (0.20-1.00) 10*3/uL Eosinophils # (0.04-0.35) 10*3/uL Basophils # (0.00-0.10) 10*3/uL Sodium (137-145) mmol/L Potassium (3.5-5.1) mmol/L Chloride (98-107) mmol/L Carbon Dioxide (22-30) mmol/L Anion Gap mmol/L BUN (9-20) mg/dL Creatinine (0.66-1.25) mg/dL Est GFR (CKD-EPI)AfAm (>60 ml/min/1.73 sqM) Est GFR (CKD-EPI)NonAf (>60 ml/min/1.73 sqM) Glucose (74-99) mg/dL POC Glucose (mg/dL) 108 (70-110) mg/dL POC Glu News Videotape Editor ID Satinder Fernandez Plasma Lactic Acid Evans 1.1 (0.7-2.0) mmol/L Calcium (8.4-10.2) mg/dL Magnesium (1.6-2.3) mg/dL Total Bilirubin (0.2-1.3) mg/dL Conjugated Bilirubin (0.0-0.3) mg/dL Unconjugated Bilirubin (0.0-1.1) mg/dL Delta Bilirubin (0.0-0.2) mg/dL AST (17-59) U/L ALT (4-49) U/L Alkaline Phosphatase (38-126) U/L Creatine Kinase 44 L (55-170) U/L Total Protein (6.3-8.2) g/dL Albumin (3.5-5.0) g/dL Lipase (23-300) U/L Urine Color Urine Appearance (Clear) Urine pH (5.0-8.0) Ur Specific [place] (1.001-1.035) Urine Protein (Negative) Urine Glucose (UA) (Negative) Urine Ketones (Negative) Urine Blood (Negative) Urine Nitrite (Negative) Urine Bilirubin (Negative) Urine Urobilinogen (<2.0) mg/dL Ur Leukocyte Esterase (Negative) Salicylates mg/dL Urine Opiates Screen (NotDetected) Ur Oxycodone Screen (NotDetected) Urine Methadone Screen (NotDetected) Acetaminophen ug/mL Ur Barbiturates Screen (NotDetected) U Tricyclic Antidepress (NotDetected) Ur Phencyclidine Scrn (NotDetected) Ur Amphetamines Screen (NotDetected) U Methamphetamines Scrn (NotDetected) U Benzodiazepines Scrn (NotDetected) Urine Cocaine Screen (NotDetected) U Marijuana (THC) Screen (NotDetected) Serum Alcohol mg/dL Influenza Type A (PCR) (Not Detectd) Influenza Type B (PCR) (Not Detectd) RSV (PCR) (Not Detectd) SARS-CoV-2 (PCR) (Not Detectd) 04/17/25 Range/Units 10:23 WBC (4.50-10.00) 10*3/uL RBC (4.40-5.60) 10*6/uL Hgb (13.0-17.0) g/dL Hct (39.6-50.0) % MCV (80.0-97.0) fL MCH (27.0-32.0) pg MCHC (32.0-37.0) g/dL Plt Count (140-440) 10*3/uL MPV (9.5-12.2) fL Immature Gran % (Auto) % Neutrophils % % Lymphocytes % % Monocytes % % Eosinophils % % Basophils % % Immature Gran # (0.00-0.04) 10*3/uL Neutrophils # (1.80-7.70) 10*3/uL Lymphocytes # (0.90-5.00) 10*3/uL Monocytes # (0.20-1.00) 10*3/uL Eosinophils # (0.04-0.35) 10*3/uL Basophils # (0.00-0.10) 10*3/uL Sodium (137-145) mmol/L Potassium (3.5-5.1) mmol/L Chloride (98-107) mmol/L Carbon Dioxide (22-30) mmol/L Anion Gap mmol/L BUN (9-20) mg/dL Creatinine (0.66-1.25) mg/dL Est GFR (CKD-EPI)AfAm (>60 ml/min/1.73 sqM) Est GFR (CKD-EPI)NonAf (>60 ml/min/1.73 sqM) Glucose (74-99) mg/dL POC Glucose (mg/dL) (70-110) mg/dL POC Glu News Videotape Editor ID Plasma Lactic Acid Evans (0.7-2.0) mmol/L Calcium (8.4-10.2) mg/dL Magnesium (1.6-2.3) mg/dL Total Bilirubin (0.2-1.3) mg/dL Conjugated Bilirubin (0.0-0.3) mg/dL Unconjugated Bilirubin (0.0-1.1) mg/dL Delta Bilirubin (0.0-0.2) mg/dL AST (17-59) U/L ALT (4-49) U/L Alkaline Phosphatase (38-126) U/L Creatine Kinase (55-170) U/L Total Protein (6.3-8.2) g/dL Albumin (3.5-5.0) g/dL Lipase (23-300) U/L Urine Color Urine Appearance (Clear) Urine pH (5.0-8.0) Ur Specific [place] (1.001-1.035) Urine Protein (Negative) Urine Glucose (UA) (Negative) Urine Ketones (Negative) Urine Blood (Negative) Urine Nitrite (Negative) Urine Bilirubin (Negative) Urine Urobilinogen (<2.0) mg/dL Ur Leukocyte Esterase (Negative) Salicylates mg/dL Urine Opiates Screen (NotDetected) Ur Oxycodone Screen (NotDetected) Urine Methadone Screen (NotDetected) Acetaminophen ug/mL Ur Barbiturates Screen (NotDetected) U Tricyclic Antidepress (NotDetected) Ur Phencyclidine Scrn (NotDetected) Ur Amphetamines Screen (NotDetected) U Methamphetamines Scrn (NotDetected) U Benzodiazepines Scrn (NotDetected) Urine Cocaine Screen (NotDetected) U Marijuana (THC) Screen (NotDetected) Serum Alcohol mg/dL Influenza Type A (PCR) Not Detected (Not Detectd) Influenza Type B (PCR) Not Detected (Not Detectd) RSV (PCR) Not Detected (Not Detectd) SARS-CoV-2 (PCR) Not Detected (Not Detectd) - EKG Data EKG Comments: 12-lead Electrocardiogram Interpretation Note EKG was reviewed and interpreted by myself. 12-lead ECG performed at 0240 is interpreted by me as revealing normal sinus rhythm at a rate of 71 beats per minute. [place] is normal. HI interval is 188 ms, QRS durations 105 ms, QTc is 429 ms.. There were no ST or T wave abnormalities to suggest myocardial ischemia or injury. R wave progression across the precordium was satisfactory. By my interpretation this EKG is non-diagnostic for acute ischemia. (Isaiah Potter) Critical Care Time Critical Care Time: Yes Total Critical Care Time: 32 <Isaiah Potter - Last Filed: 04/17/25 06:47> Disposition <Isaiah Potter - Last Filed: 04/17/25 06:47> Time of Disposition: 11:17 <Eben Cervantes - Last Filed: 04/17/25 11:17> Clinical Impression: Suicidal ideation, Depression Disposition: ADMITTED IP TO THIS HOSP Referrals: None,Stated [Primary Care Provider] - 1-2 days
[2025-04-17 03:13] LABS: Basophils # (A) 0.13 10*3/uL (0.00-0.10); Basophils % (A) 0.8 %; Eosinophils # (A) 0.45 10*3/uL (0.04-0.35); Eosinophils % (A) 2.9 %; HCT 43.1 % (39.6-50.0); HGB 14.2 g/dL (13.0-17.0); Lymphocytes # (A) 1.83 10*3/uL (0.90-5.00); Lymphocytes % (A) 11.9 %; MCH 30.6 pg (27.0-32.0); MCHC 32.9 g/dL (32.0-37.0); MCV 92.9 fL (80.0-97.0); Monocytes # (A) 0.69 10*3/uL (0.20-1.00); Monocytes % (A) 4.5 %; Neutrophils # (A) 12.21 10*3/uL (1.80-7.70); Neutrophils % (A) 79.5 %; Platelet Count 386 10*3/uL (140-440); RBC 4.64 10*6/uL (4.40-5.60); RDW 13.8 % (11.5-14.5); WBC 15.37 10*3/uL (4.50-10.00)
[2025-04-17] MEDS: SODIUM CHLORIDE 0.9% 1,000 ML IV STA ×2 (03:44→03:46)
[2025-04-17] MEDS: ONDANSETRON 4 MG/2 ML VIAL IVP STA (03:46)
[2025-04-17 03:48] LABS: ALT 22 U/L (4-49); AST 28 U/L (17-59); Acetaminophen <10.0 ug/mL; African American GFR (CKD) >90 (>60 ml/min/1.73 sqM); Albumin 4.0 g/dL (3.5-5.0); Alkaline Phosphatase 55 U/L (38-126); Bilirubin, Delta 0.3 mg/dL (0.0-0.2); Bilirubin,Unconjugated 0.1 mg/dL (0.0-1.1); Blood Urea Nitrogen 20 mg/dL (9-20); Calcium 9.8 mg/dL (8.4-10.2); Carbon Dioxide 24 mmol/L (22-30); Glucose 104 mg/dL (74-99); Lipase 54 U/L (23-300); Magnesium 2.3 mg/dL (1.6-2.3); Non-African American GFR(CKD) >90 (>60 ml/min/1.73 sqM); Salicylate <1.0 mg/dL; Total Protein 6.4 g/dL (6.3-8.2)
[2025-04-17 04:11] LABS: Anion Gap 9 mmol/L; Chloride 103 mmol/L (98-107); Potassium 5.2 mmol/L (3.5-5.1); Sodium 136 mmol/L (137-145)
[2025-04-17 06:19] LABS: Bilirubin,Urine Negative (Negative); Blood,Urine Negative (Negative); Color,Urine Light Yellow; Glucose,Urine (UA) Negative (Negative); Ketones,Urine Negative (Negative); Leukocyte Esterase,Urine Negative (Negative); Nitrite,Urine Negative (Negative); PH, Urine 5.5 (5.0-8.0); Protein,Urine Negative (Negative); Specific Gravity,Urine 1.016 (1.001-1.035); Urobilinogen,Urine <2.0 mg/dL (<2.0)
[2025-04-17 06:37] LABS: Barbiturate Screen,Urine Not Detected (NotDetected); Benzodiazepines Screen,Urine Detected (NotDetected); Opiate Screen,Urine Not Detected (NotDetected); Oxycodone Screen, Urine Not Detected (NotDetected); Phencyclidine Screen,Urine Not Detected (NotDetected); Tricyclic Antidepressant,Urine Not Detected (NotDetected); Urn Cannabinoid Scrn Not Detected (NotDetected)
[2025-04-17 11:06] LABS: RSV Not Detected (Not Detectd)
[2025-04-17] MEDS ORDERED: HALOPERIDOL LACTATE 5 MG/ML 1 ML VIAL IM PRN (13:42)
[2025-04-17] MEDS ORDERED: MAGNESIUM HYDROXIDE 2,400 MG/30 ML CUP PO PRN (13:42)
[2025-04-17] MEDS ORDERED: LORazepam 1 MG/0.5 ML VIAL IM PRN (13:42)
[2025-04-17] MEDS: VENLAFAXINE HCL ER 75 MG CAP PO SCH (17:06)
[2025-04-17] MEDS: PROPRANOLOL 20 MG TAB PO SCH (17:06)
[2025-04-17] MEDS: NICOTINE 14MG/24HR PATCH TRANSDERM SCH (17:06)
[2025-04-17] MEDS: ACETAMINOPHEN TAB 325 MG TAB PO PRN (17:07)
[2025-04-17] MEDS: lamoTRIgine 100 MG TAB PO SCH (20:43)
[2025-04-17] MEDS: ZIPRASIDONE 80 MG CAP PO SCH (20:43)
[2025-04-17] MEDS: buPROPion XL 150 MG TAB.ER.24H PO SCH (20:44)
[2025-04-17] MEDS: LORazepam 1 MG TAB PO PRN (20:45)
[2025-04-18] MEDS: IBUPROFEN 600 MG TAB PO PRN (08:12)
[2025-04-18 08:39] LABS: Basophils # (A) 0.10 10*3/uL (0.00-0.10); Basophils % (A) 1.0 %; Eosinophils # (A) 0.51 10*3/uL (0.04-0.35); Eosinophils % (A) 4.9 %; HCT 45.6 % (39.6-50.0); HGB 14.5 g/dL (13.0-17.0); Lymphocytes # (A) 2.72 10*3/uL (0.90-5.00); Lymphocytes % (A) 26.2 %; MCH 30.0 pg (27.0-32.0); MCHC 31.8 g/dL (32.0-37.0); MCV 94.2 fL (80.0-97.0); Monocytes # (A) 0.71 10*3/uL (0.20-1.00); Monocytes % (A) 6.8 %; Neutrophils # (A) 6.32 10*3/uL (1.80-7.70); Neutrophils % (A) 60.7 %; Platelet Count 376 10*3/uL (140-440); RBC 4.84 10*6/uL (4.40-5.60); RDW 14.1 % (11.5-14.5); WBC 10.40 10*3/uL (4.50-10.00)
[2025-04-18 13:40] LABS: Cholesterol 247.00 mg/dL (0.00-200.00); HDL Cholesterol 52.80 mg/dL (40.00-60.00); LDL Cholesterol,Calculated 147.8 mg/dL (0.0-131.0); Triglycerides 232.00 mg/dL (0.00-149.00); VLDL Calculation 46.40 mg/dL (5.00-40.00)
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
[2025-04-19] MEDS: LORazepam 0.5 MG TAB PO PRN (15:21)
--- NOTE | 2025-04-19 18:44 | P.MDCNMH ---
History of Present Illness H&P Date: 04/19/25 Chief Complaint: Medical evaluation 60-year-old male with medical history of thyroid disorder, neuropathy, anxiety and depression presented for evaluation of mental health. Medicine was consulted for medical management. Patient's only complaint at this time is pain in his lower extremities for which she typically takes [id number] medications. Otherwise, patient denies any chronic medical conditions. Review of systems is largely negative. Patient is afebrile, 130/76, heart rate 83, 9 8 % on room air. CBC shows mild leukocytosis 10.4. Basic metabolic panel shows sodium of 136, potassium 5.2. Liver function tests are unremarkable. Lipid panel shows LDL of 147.8, total cholesterol of 247, triglycerides of 232, HDL of 52.8 lipase was 54. Urinalysis unremarkable. Urine tox screen is positive for benzodiazepines, otherwise negative. Salicylate level, aspirin level, alcohol level are less than 10. Influenza A, B, RSV, and COVID are negative. A1c is 5.3. EKG shows normal sinus rhythm with appropriate axis, good R wave progression, no evidence of i schemia. Gen: In NAD, non-toxic HEENT: normocephalic, atraumatic, hearing acuity is intant, mucous membranes moist CVS: perfusing all extremities well, no pitting edema, Respiratory: symmetric chest expansion, no accessory muscle use, GI: soft, NTTP, ND, : no suprapubic tenderness, no CVA tenderness MSK/Derm: no rashes, cyanosis Neuro: CN II-XII intact, no motor weakness, Psych: cooperative, euthymic mood, judgment and insight is intact Assessment/plan: Hyperlipidemia -ASCVD estimates 16.2% chance of cardiovascular event in the next 10 years, warranting high intensity statin - Will initiate atorvastatin 80 mg at bedtime - Needs outpatient follow-up with PCP - Diet and exercise counseling - Repeat labs in 3 years Obesity class II - Outpatient weight loss referral - Diet and exercise counseling - Needs to establish with PCP Neuropathy -Tylenol as needed - Will consider adding Lyrica Anxiety depression -Care per primary team Thank you for this consult, please reach out with any further questions or concerns. 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 History of Any Multi-Drug Resistant Organisms: None Reported Past Surgical History: Tonsillectomy Additional Past Surgical History / Comment(s): biopsys of tumors on thyroid and spot in his lung. Past Anesthesia/Blood Transfusion Reactions: No Reported Reaction Past Psychological History: Anxiety, Depression, Panic Disorder Additional Psychological History / Comment(s): been on disability for 8-10 years. Smoking Status: Current some day smoker Past Alcohol Use History: None Reported, Abuse Past Drug Use History: None Reported - Past Family History Mother Family Medical History: COPD Medications and Allergies Home Medications Medication Instructions Recorded Confirmed Type ALPRAZolam [Xanax] 1 mg PO BID 08/15/16 04/17/25 History buPROPion XL [Wellbutrin XL] 450 mg PO HS #90 [id number] 03/10/20 04/17/25 Rx Ziprasidone [Geodon] 80 mg PO BID 04/15/20 04/17/25 History Acetaminophen Tab [Tylenol Tab] 500 mg PO QID 04/17/25 04/17/25 History Naproxen Sodium [Aleve] 220 mg PO Q6H 04/17/25 04/17/25 History Propranolol HCl [Inderal] 60 mg PO TID 04/17/25 04/17/25 History Venlafaxine HCl [Effexor XR] 225 mg PO DAILY 04/17/25 04/17/25 History lamoTRIgine 200 mg PO BID 04/17/25 04/17/25 History Allergies Allergy/AdvReac Type Severity Reaction Status Date / Time No Known Allergies Allergy Verified 04/17/25 12:53 Physical Exam Osteopathic Statement: *. No significant issues noted on an osteopathic structural exam other than those noted in the History and Physical/Consult. Vitals: Vital Signs Temp Pulse Resp BP 04/19/25 13:12 98.0 F 83 16 130/76 Intake and Output 04/19/25 04/19/25 04/19/25 06:59 14:59 22:59 Other: Weight 107.5 kg Cranial Nerve Examination - Cranial Nerves Cranial Nerve II- Optic: Intact Cranial Nerve III- Oculomotor: Intact Cranial Nerve IV- Trochlear: Intact Cranial Nerve V- Trigeminal: Intact Cranial Nerve - Abducens: Intact Cranial Nerve VII- Facial: Intact Cranial Nerve VIII- Auditory: Intact Cranial Nerve IX- Glossopharyngeal: Intact Cranial Nerve X- Vagus: Intact Cranial Nerve XI- Accessory: Intact Cranial Nerve XII- Hypoglossal: Intact Results CBC & Chem 7: 04/18/25 07:58 04/17/25 02:46
--- NOTE | 2025-04-19 19:52 | P.PN ---
Progress Note - Text Progress Note Date: 04/19/25 Interval history: Patient was seen sitting on the edge of his bed in his room, lights on. He is polite, calm, agreeable to speak with this senior grant writer. Today he claims his mood is "alright" and feels he came to the hospital because he was "lonely" and due to "life circumstances". He think he would be ready for discharge home possibly tomorrow. At this time patient denies any suicidal or homicidal ideation, intent or plan. Denies any auditory or visual hallucinations. Patient denies any side effects from the medications and has been compliant with meds. His home Xanax was not restarted on admission due to nonformulary and risk of dependence. He has received Ativan 1 mg po x 2 so far today for anxiety, which will be decreased today to minimize overuse. Mental status exam: General Appearance: Patient appears to be stated age, obese, mildly disheveled, fair hygiene and grooming. Behavior: Patient is seated without any agitated behavior. Speech: Patient's speech is [fluent and nonpressured.] Mood/Affect: Patient reports their mood is "lonely", affect is mood incongruent. Suicidality/Homicidality: Patient denies having any homicidal ideation intent or plan. Denies any active suicidal ideation intent or plan Perceptions: Patient denies any visual hallucinations and denies any auditory hallucinations. Though content/process: There is no evidence of any delusional thought content and thought process is linear and goal-directed. Memory and concentration: AOX3, grossly intact for the purposes of this session. Judgment and insight: poor, improving mildly Assessment/Plan: Continue with current diagnosis. Patient continues to meet criteria for inpatient psychiatric admission for symptom stabilization and safety. Continue home medications as ordered. Decrease Ativan 1 mg Q6H PRN to 0.5 mg Q6H PRN for anxiety to minimize overuse. Monitor for medication compliance and for any psychotropic medication side effects. Will continue to monitor ongoing response to treatment. Encouraged participation in milieu.
--- NOTE | 2025-04-20 11:54 | P.PN ---
Progress Note - Text Progress Note Date: 04/20/25 Interval history: Patient was seen sitting on his bed today agreeable to speak to comic book writer in the office. Patient claims that he has seen comic book writer before about 5 years ago, spoke about his last 5 years having psychiatric care at [facility]. Claims that he does like the medications that he is on and wants to stay on the same doses. Claims that they have been helping him however states that before he came in the hospital it was knowledge. States that he is feeling a bit depressed, mild anxiety at this time. Has been going to some groups. Up for meals. Claims that he slept fairly last night. Denies any suicidal or homicidal ideations intent or plan denies any auditory or visual hallucinations. Mental status exam: General Appearance: Patient appears to be stated age, obese, mildly disheveled, fair hygiene and grooming. Behavior: Patient is seated without any agitated behavior. More cooperative Speech: Patient's speech is [fluent and nonpressured.] Mood/Affect: Patient reports their mood is "a bit better", affect is mood incongruent. Suicidality/Homicidality: Patient denies having any homicidal ideation intent or plan. Denies any active suicidal ideation intent or plan Perceptions: Patient denies any visual hallucinations and denies any auditory hallucinations. Though content/process: There is no evidence of any delusional thought content and thought process is linear and goal-directed. Memory and concentration: AOX3, grossly intact for the purposes of this session. Judgment and insight: poor, improving mildly Assessment/Plan: Continue with current diagnosis. Patient continues to meet criteria for inpatient psychiatric admission for symptom stabilization and safety. Continue home medications as ordered Monitor for medication compliance and for any psychotropic medication side effects. Will continue to monitor ongoing response to treatment. Encouraged participation in milieu. Hopeful for discharge in 2 to 3 days if patient is improving.
[2025-04-21] MEDS: MAG HYDROX/AL HYDROX/SIMETH 355 ML BOTTLE PO PRN (09:51)
--- NOTE | 2025-04-21 11:45 | P.PN ---
Progress Note - Text Progress Note Date: 04/21/25 Interval history: Patient was seen sitting on his bed today agreeable to speak to manual writer in the office. Patient claims that he was feeling a bit "unstable" with regards to his pain earlier. States that he has struggled with this for quite some time. He also claims that he had an episode of "psychosis" yesterday and he stated Haldol which helped calm down the voices that were talking to him. He states that today he has not heard the voices. He was open to talking about changes to his medications including decreasing Wellbutrin and adding Depakote as a mood stabilizer. He states that he is sensitive to some medications including lithium. Claims that he has been up for meals taking his medications. States that he slept fairly last night. Denies any suicidal or homicidal ideations intent or plan denies any current auditory or visual hallucinations. Mental status exam: General Appearance: Patient appears to be stated age, obese, mildly disheveled, fair hygiene and grooming. Behavior: Patient is seated without any agitated behavior. More cooperative Speech: Patient's speech is [fluent and nonpressured.] Mood/Affect: Patient reports their mood is "ok, just a little unstable", affect is mood congruent. Suicidality/Homicidality: Patient denies having any homicidal ideation intent or plan. Denies any active suicidal ideation intent or plan Perceptions: Patient denies any visual hallucinations and denies any auditory hallucinations. Though content/process: There is no evidence of any delusional thought content and thought process is linear and goal-directed. Memory and concentration: AOX3, grossly intact for the purposes of this session. Judgment and insight: improving mildly Assessment/Plan: Continue with current diagnosis. Patient continues to meet criteria for inpatient psychiatric admission for symptom stabilization and safety. Medications: decrease Wellbutrin XL to 300 mg daily for mood, start Depakote 250 mg twice daily for mood stabilization. Continue with Geodon 80 mg twice daily for mood stabilization/psychosis, continue with Lamictal 200 mg twice daily for mood stabilization, continue Effexor 225 mg daily for mood/anxiety Monitor for medication compliance and for any psychotropic medication side effects. Will continue to monitor ongoing response to treatment. Encouraged participation in milieu. Hopeful for discharge in 2 to 3 days if patient is improving. Patient will be following up at [facility] upon discharge
[2025-04-21] MEDS: DIVALPROEX ER 250 MG TAB.ER.24H PO SCH (11:49)
[2025-04-22] MEDS: buPROPion XL 300 MG TAB.ER.24H PO SCH (08:14)
--- NOTE | 2025-04-22 10:23 | P.PN ---
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 Patient claims that he has been sleeping well at night time. Claims that again he had another episode of "psychosis" yesterday early evening. He claims that it was voices that are crept and again and he was attempting to talk more about it however was not able to describe what they are saying or doing. He states that after taking the Haldol he did calm down and the voices went away. He states that has been happening every day. He has been showering, eating well. Not going many groups mainly keeping himself. He remains fairly pleasant future-oriented who spoke about potential discharge tomorrow. Denies any suicidal or homicidal ideations intent or plan denies any current auditory or visual hallucinations. Mental status exam: General Appearance: Patient appears to be stated age, obese, mildly disheveled, fair hygiene and grooming. Behavior: Patient is seated without any agitated behavior. More cooperative Speech: Patient's speech is fluent and nonpressured. Mood/Affect: Patient reports their mood is "ok", affect is mood congruent. Suicidality/Homicidality: Patient denies having any homicidal ideation intent or plan. Denies any active suicidal ideation intent or plan Perceptions: Patient denies any visual hallucinations and denies any auditory hallucinations. Though content/process: There is no evidence of any delusional thought content and thought process is linear and goal-directed. Memory and concentration: AOX3, grossly intact for the purposes of this session. Judgment and insight: improving mildly Assessment/Plan: Continue with current diagnosis. Patient continues to meet criteria for inpatient psychiatric admission for symptom stabilization and safety. Medications: Wellbutrin XL to 300 mg daily for mood, d/c Depakote due to ineffectiveness. Continue Geodon 80 mg twice daily for mood stabilization/psychosis, continue Lamictal 200 mg twice daily for mood stabilization, continue Effexor 225 mg daily for mood/anxiety. added haldol PO 5 mg at 1300 for psychosis adjunct. Monitor for medication compliance and for any psychotropic medication side effects. Will continue to monitor ongoing response to treatment. Encouraged participation in milieu. Hopeful for discharge tomorrow if patient is improving. Patient will be [facility] at [facility] upon discharge
[2025-04-22 21:37] VITALS: RESP 18
[2025-04-23 08:43] VITALS: BP 126/82; PULSE 79; TEMP 98.1
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
== END 2025-04-23 13:30 | disposition home or self-care (01) | DRG 885 ==
LOC: EC 02:10 → 3MHU 13:31
PROVIDERS: ADMIT Psychiatry & Neurology Psychiatry; ATTEND Psychiatry & Neurology Psychiatry
DX: F25.1 Schizoaffective disorder, depressive type (principal); Z59.02 Unsheltered homelessness; F33.9 Major depressive disorder, recurrent, unspecified; J44.9 Chronic obstructive pulmonary disease, unspecified; E66.812 Obesity, class 2; F60.3 Borderline personality disorder; T44.7X2A Poisoning by beta-adrenoreceptor antagonists, intentional self-harm, initial encounter; T39.312A Poisoning by propionic acid derivatives, intentional self-harm, initial encounter; T39.1X2A Poisoning by 4-Aminophenol derivatives, intentional self-harm, initial encounter; T42.4X2A Poisoning by benzodiazepines, intentional self-harm, initial encounter; F41.9 Anxiety disorder, unspecified; E78.00 Pure hypercholesterolemia, unspecified; G62.9 Polyneuropathy, unspecified; G89.29 Other chronic pain; I25.10 Atherosclerotic heart disease of native coronary artery without angina pectoris; K58.9 Irritable bowel syndrome, unspecified; E07.9 Disorder of thyroid, unspecified; K21.9 Gastro-esophageal reflux disease without esophagitis; R11.2 Nausea with vomiting, unspecified; Z56.0 Unemployment, unspecified; Z79.899 Other long term (current) drug therapy
CPT/HCPCS: 36415; 80053; 80061; 80143; 80179; 80306; 80320; 81003; 82248; 82550; 83036; 83605; 83690; 83735; 84443; 85025; 87636; 93005; 96361; 96374; 99291